=== PATIENT | male | born 1955 | race African-American/Black ===

== ENCOUNTER → 2016-04-01 | Outpatient (CLI) | payer OTHER ==
[2016-04-01 15:32] LABS: ANION GAP 11 (5-19); BLOOD UREA NITROGEN 21 mg/dL (7-20); CALCIUM 10.3 mg/dL (8.4-10.2); CARBON DIOXIDE 26 mmol/L (22-30); CHLORIDE 105 mmol/L (98-107); CREATININE RESULT 1.37 mg/dL (0.52-1.25); GLUCOSE 111 mg/dL (75-110); POTASSIUM 4.5 mmol/L (3.6-5.0); SODIUM 142.1 mmol/L (137-145)
== END ==
LOC: OD 14:30
PROVIDERS: ATTEND Internal Medicine Nephrology
DX: R80.9 Proteinuria, unspecified (principal)
CPT/HCPCS: 36415; 80048

== ENCOUNTER → 2016-05-02 | Outpatient (CLI) | payer OTHER ==
[2016-05-02 11:44] LABS: APPEARANCE,URINE CLEAR; BILIRUBIN,URINE NEGATIVE (NEGATIVE); GLUCOSE, URINE NEGATIVE (NEGATIVE); KETONES,URINE NEGATIVE (NEGATIVE); LEUKOCYTE ESTERASE,URINE NEGATIVE (NEGATIVE); NITRITE,URINE NEGATIVE (NEGATIVE); PROTEIN,URINE 100 mg/dL (NEGATIVE); URINE SPECIFIC GRAVITY 1.009; UROBILINOGEN,URINE NEGATIVE mg/dL (<2.0)
[2016-05-02 12:07] LABS: ANION GAP 9 (5-19); BLOOD UREA NITROGEN 28 mg/dL (7-20); CALCIUM 9.5 mg/dL (8.4-10.2); CARBON DIOXIDE 24 mmol/L (22-30); CHLORIDE 107 mmol/L (98-107); CREATININE RESULT 1.33 mg/dL (0.52-1.25); GLUCOSE 82 mg/dL (75-110); POTASSIUM 4.5 mmol/L (3.6-5.0); SODIUM 139.8 mmol/L (137-145)
== END ==
LOC: OD 11:17
PROVIDERS: ATTEND Internal Medicine Nephrology
DX: N17.9 Acute kidney failure, unspecified (principal); E83.52 Hypercalcemia
CPT/HCPCS: 36415; 80048; 81001

== ENCOUNTER → 2016-06-09 | Outpatient (CLI) | payer OTHER | LOC: RAD 14:48 | PROVIDERS: ATTEND Internal Medicine Medical Oncology | DX: C79.51 Secondary malignant neoplasm of bone (principal) | CPT/HCPCS: 77075 ==

== ENCOUNTER → 2016-08-04 | Outpatient (CLI) | payer OTHER ==
[2016-08-04 12:40] LABS: APPEARANCE,URINE SLIGHTLY-CLOUDY; BILIRUBIN,URINE NEGATIVE (NEGATIVE); GLUCOSE, URINE NEGATIVE (NEGATIVE); KETONES,URINE NEGATIVE (NEGATIVE); LEUKOCYTE ESTERASE,URINE NEGATIVE (NEGATIVE); NITRITE,URINE NEGATIVE (NEGATIVE); PROTEIN,URINE 100 mg/dL (NEGATIVE); URINE SPECIFIC GRAVITY 1.013; UROBILINOGEN,URINE NEGATIVE mg/dL (<2.0)
[2016-08-04 12:57] LABS: ANION GAP 11 (5-19); BLOOD UREA NITROGEN 19 mg/dL (7-20); CALCIUM 9.3 mg/dL (8.4-10.2); CARBON DIOXIDE 19 mmol/L (22-30); CHLORIDE 108 mmol/L (98-107); CREATININE RESULT 1.35 mg/dL (0.52-1.25); GLUCOSE 91 mg/dL (75-110); POTASSIUM 4.5 mmol/L (3.6-5.0); SODIUM 137.5 mmol/L (137-145)
[2016-08-05 11:39] LABS: CREATININE URINE 119.8 mg/dL (Not Estab.)
[2016-08-05 11:43] LABS: MICROALBUMIN URINE 941.4 ug/mL (Not Estab.)
== END ==
LOC: OD 11:22
PROVIDERS: ATTEND Internal Medicine Nephrology
DX: N28.9 Disorder of kidney and ureter, unspecified (principal); R80.9 Proteinuria, unspecified
CPT/HCPCS: 36415; 80048; 81001; 82043; 82570

== ENCOUNTER → 2016-11-27 | Outpatient (CLI) | payer OTHER ==
[2016-11-27 13:55] LABS: APPEARANCE,URINE CLEAR; BILIRUBIN,URINE NEGATIVE (NEGATIVE); GLUCOSE, URINE NEGATIVE (NEGATIVE); KETONES,URINE NEGATIVE (NEGATIVE); LEUKOCYTE ESTERASE,URINE NEGATIVE (NEGATIVE); NITRITE,URINE NEGATIVE (NEGATIVE); PROTEIN,URINE 30 mg/dL (NEGATIVE); URINE SPECIFIC GRAVITY 1.012; UROBILINOGEN,URINE NEGATIVE mg/dL (<2.0)
[2016-11-27 14:23] LABS: URINE CREATININE 108.8 mg/dL (22-328)
[2016-11-27 14:24] LABS: ANION GAP 11 (5-19); BLOOD UREA NITROGEN 20 mg/dL (7-20); CALCIUM 9.8 mg/dL (8.4-10.2); CARBON DIOXIDE 17 mmol/L (22-30); CHLORIDE 112 mmol/L (98-107); CREATININE RESULT 1.55 mg/dL (0.52-1.25); GLUCOSE 85 mg/dL (75-110); POTASSIUM 5.2 mmol/L (3.6-5.0); SODIUM 139.9 mmol/L (137-145)
== END ==
LOC: OD 12:45
PROVIDERS: ATTEND Internal Medicine Nephrology
DX: N18.2 Chronic kidney disease, stage 2 (mild) (principal); R80.9 Proteinuria, unspecified
CPT/HCPCS: 36415; 80048; 81001; 82570; 84156

== ENCOUNTER 2017-02-10 11:11 | Outpatient (CLI) | payer OTHER ==
[~2017-02-10 11:11] MED LIST: ACETAMINOPHEN 325 MG TABLET PO PRN; DIPHENHYDRAMINE HCL 25 MG CAPSULE PO PRN; FUROSEMIDE INJ/PF 20 MG/2 ML SDV IV PRN
[2017-02-10] MEDS ORDERED: NORMAL SALINE 250 ML IV PRN (11:45)
[2017-02-10 11:46] LABS: HEMATOCRIT 24.4 % (37.9-51.0); HEMOGLOBIN 8.4 g/dL (13.5-17.0); HGB HCT DIFFERENCE 0.8; MEAN CORPUSCULAR HEMOGLOBIN 34.2 pg (27.0-33.4); MEAN CORPUSCULAR HGB CONC 34.3 g/dL (32.0-36.0); MEAN CORPUSCULAR VOLUME 100 fl (80-97); RED BLOOD COUNT 2.45 10^6/uL (4.35-5.55); RED CELL DISTRIBUTION WIDTH 23.2 % (11.5-14.0); WHITE BLOOD COUNT 10.7 10^3/uL (4.0-10.5)
[2017-02-10 18:59] VITALS: BP 131/76
[2017-02-10 19:26] LABS: HEMATOCRIT 29.3 % (37.9-51.0); HEMOGLOBIN 10.1 g/dL (13.5-17.0); MEAN CORPUSCULAR HEMOGLOBIN 33.2 pg (27.0-33.4); MEAN CORPUSCULAR HGB CONC 34.4 g/dL (32.0-36.0); MEAN CORPUSCULAR VOLUME 97 fl (80-97); RED BLOOD COUNT 3.04 10^6/uL (4.35-5.55); RED CELL DISTRIBUTION WIDTH 21.3 % (11.5-14.0); WHITE BLOOD COUNT 10.8 10^3/uL (4.0-10.5)
== END 2017-02-10 19:18 | disposition home or self-care (01) ==
LOC: II 11:11 → 2N 11:15 → II 19:18
PROVIDERS: ATTEND Internal Medicine Medical Oncology
PROC: 30243N1 Transfusion of Nonautologous Red Blood Cells into Central Vein, Percutaneous Approach (ICD-10-PCS; principal; 2017-02-10)
DX: D64.9 Anemia, unspecified (principal); N18.3 Chronic kidney disease, stage 3 (moderate); C90.00 Multiple myeloma not having achieved remission
CPT/HCPCS: 86900; 86901; 36415; 36430; 86850; 85027; 86920; P9016; J1940; 96374

== ENCOUNTER → 2017-02-17 | Outpatient (CLI) | payer OTHER ==
--- NOTE | 2017-02-17 11:45 | RADIOLOGY REPORT (SQ) ---
EXAM DESCRIPTION: CHEST PA/LATERAL COMPLETED DATE/TIME: 02/17/2017 11:13 am REASON FOR STUDY: PNEUMONIA, UNSPECIFIED ORGANISM COMPARISON: 01/21/2017 TECHNIQUE: Frontal and lateral radiographic views of the chest acquired. NUMBER OF VIEWS: Two view. LIMITATIONS: None. FINDINGS: LUNGS AND PLEURA: Mild chronic interstitial prominence. Mild areas of subsegmental atelec tasis in the lung bases. No evidence of developing pneumonia or overt failure. Lungs slightly hyper inflated. MEDIASTINUM AND HILAR STRUCTURES: Stable contours. HEART AND VASCULAR STRUCTURES: Stable heart. Relatively normal size. BONES: Chronic mid thoracic vertebral wedging. HARDWARE: Right port, tip to the superior vena cava as before. OTHER: No other significant finding. IMPRESSION: Relatively stable chest, findings as above. Generally chronic changes. TECHNICAL DOCUMENTATION: JOB ID: [id number] [employer]- All Rights Reserved
== END ==
LOC: OD 10:58
PROVIDERS: ATTEND Physician Assistant
DX: J18.9 Pneumonia, unspecified organism (principal)
CPT/HCPCS: 71020

== ENCOUNTER 2017-02-19 20:34 | Inpatient (IN) | payer OTHER ==
--- NOTE | 2017-02-19 20:40 | ER Document Report ---
ED General - General Stated Complaint: DIFFICULTY BREATHING Time Seen by Provider: 02/19/17 20:40 Mode of Arrival: Ambulatory Information source: Patient, Relative Notes: 61-year-old male history of multiple myeloma who last had chemotherapy 1 month ago presents with complaints of shortness of breath difficulty breathing. Patient notes symptoms have been worsening over the past few days, patient was diagnosed with pneumonia approximately 23 days ago Patient is not on oxygen at home TRAVEL OUTSIDE OF THE [place] IN LAST 30 DAYS: No - HPI Onset: Other Onset/Duration: Persistent Quality of pain: No pain Severity: Moderate Pain Level: Denies Associated symptoms: Nonproductive cough, Shortness of breath Exacerbated by: Walking Relieved by: Denies Similar symptoms previously: Yes Recently seen / treated by doctor: Yes - Related Data Allergies/Adverse Reactions: No Known Allergies Allergy (Verified 07/05/14 16:43) Past Medical History - Social History Smoking Status: Former Smoker Cigarette use (# per day): No Chew tobacco use (# tins/day): No Smoking Education Provided: No Family History: Reviewed & Not Pertinent - Past Medical History Cardiac Medical History: Reports: Hx Hypercholesterolemia, Hx Hypertension Pulmonary Medical History: Reports: Hx Bronchitis, Hx Pneumonia Denies: Hx Asthma, Hx COPD Renal/ Medical History: Denies: Hx Peritoneal Dialysis Past Surgical History: Reports: Hx Orthopedic Surgery - L3-L5 surgery - Immunizations Hx Diphtheria, Pertussis, Tetanus Vaccination: No Hx Pneumococcal Vaccination: 03/23/12 Review of Systems - Review of Systems Notes: REVIEW OF SYSTEMS: CONSTITUTIONAL : Denies fever, chills, or sweats. Denies recent illness. EENT: Denies eye, ear, throat, or mouth pain or symptoms. Denies nasal or sinus congestion or discharge. Denies throat, tongue, or mouth swelling or difficulty swallowing. CARDIOVASCULAR: Denies chest pain. Denies palpitations or racing or irregular heart beat. Denies ankle edema. RESPIRATORY: Admits shortness breath difficulty breathing GASTROINTESTINAL: Denies abdominal pain or distention. Denies nausea, vomiting , or diarrhea. Denies blood in vomitus, stools, or per rectum. Denies black, tarry stools. Denies constipation. GENITOURINARY: Denies difficulty urinating, painful urination, burning, frequency, blood in urine, or discharge. MUSCULOSKELETAL: Denies back or neck pain or stiffness. Denies joint pain or swelling. SKIN: Denies rash, lesions or sores. HEMATOLOGIC : Denies easy bruising or bleeding. LYMPHATIC: Denies swollen, enlarged glands. NEUROLOGICAL: Denies confusion or altered mental status. Denies passing out or loss of consciousness. Denies dizziness or lightheadedness. Denies headache. Denies weakness or paralysis or loss of use of either side. Denies problems with gait or speech. Denies sensory loss, numbness, or tingling. Denies seizures. PSYCHIATRIC: Denies anxiety or stress. Denies depression, suicidal ideation, or homicidal ideation. ALL OTHER SYSTEMS REVIEWED AND NEGATIVE. Dictation was performed using [employer] voice recognition software PHYSICAL EXAMINATION: GENERAL: Well-appearing, well-nourished and in mild respiratory distress HEAD: Atraumatic, normocephalic. EYES: Pupils equal round and reactive to light, extraocular movements intact, sclera anicteric, conjunctiva are normal. ENT: Nares patent, oropharynx clear without exudates. Moist mucous membranes. NECK: Normal range of motion, supple without lymphadenopathy LUNGS: Tachypneic coarse breath sounds all throughout i. HEART: Tachycardic ABDOMEN: Soft, nontender, nondistended abdomen. No guarding, no rebound. No masses appreciated. Musculoskeletal: Normal range of motion, no pitting or edema. No cyanosis. NEUROLOGICAL: Cranial nerves grossly intact. Normal speech, normal gait. Normal sensory, motor exams PSYCH: Normal mood, normal affect. SKIN: Warm, Dry, normal turgor, no rashes or lesions noted. Physical Exam - Vital signs Vitals: Resp Pulse Ox 28 H 97 02/19/17 20:44 02/19/17 20:44 Course - Re-evaluation Re-evalutation: 02/19/17 22:32 Initial concern was for a pulmonary emboli given history of multiple myeloma and shortness of breath tachycardia and hypoxemia, CTA is consistent with pneumonia, at this point patient meets sepsis criteria, IV fluids have been ordered antibiotics and admission to the hospitalist service - Vital Signs Vital signs: Temp Pulse Resp BP Pulse Ox 99.5 F 128 H 41 H 109/59 L 97 02/19/17 20:49 02/19/17 20:49 02/19/17 21:31 02/19/17 21:31 02/19/17 21:31 - Laboratory Result Diagrams: 02/19/17 20:54 02/19/17 20:54 Laboratory results interpreted by me: 02/19/17 02/19/17 20:54 20:54 RBC 2.92 L Hgb 9.5 L Hct 27.9 L RDW 21.0 H Plt Count 101 L Seg Neuts % (Manual) 35 L Band Neutrophils % 18 H Monocytes % (Manual) 18 H Potassium 3.5 L Chloride 109 H Carbon Dioxide 17 L BUN 24 H Creatinine 1.84 H Est GFR ( Amer) 45 L Est GFR (Non-Af Amer) 37 L Calcium 10.4 H Direct Bilirubin 0.5 H Total Protein 9.4 H Albumin 3.4 L - Diagnostic Test Radiology reviewed: Image reviewed, Reports reviewed Critical Care Note - Critical Care Note Total time excluding time spent on procedures (mins): 33 Comments: 33 minutes of critical care time spent in direct contact evaluating and reevaluating the patient, treating symptoms, reviewing labs and studies and speaking with family and consultants excluding any procedures Discharge - Discharge Clinical Impression: Renal insufficiency Pneumonia Qualifiers: Pneumonia type: due to unspecified organism Laterality: bilateral Lung location : lower lobe of lung Qualified Code(s): J18.9 - Pneumonia, unspecified organism Sepsis Qualifiers: Sepsis type: sepsis due to unspecified organism Qualified Code(s): A41.9 - Sepsis, unspecified organism Condition: Stable Disposition: ADMITTED INPATIENT Admitting Provider: Hospitalist Unit Admitted: Telemetry Referrals: MERARI PURI MD [Primary Care Provider] - Follow up as needed
[2017-02-19 21:32] LABS: HEMATOCRIT 27.9 % (37.9-51.0); HEMOGLOBIN 9.5 g/dL (13.5-17.0); HGB HCT DIFFERENCE 0.6; MEAN CORPUSCULAR HEMOGLOBIN 32.7 pg (27.0-33.4); MEAN CORPUSCULAR HGB CONC 34.2 g/dL (32.0-36.0); MEAN CORPUSCULAR VOLUME 96 fl (80-97); RED BLOOD COUNT 2.92 10^6/uL (4.35-5.55); WHITE BLOOD COUNT 4.8 10^3/uL (4.0-10.5)
[2017-02-19 21:40] LABS: ALANINE AMINOTRANSFERASE 38 U/L (21-72); ALBUMIN 3.4 g/dL (3.5-5.0); ALKALINE PHOSPHATASE 65 U/L (38-126); ANION GAP 16 (5-19); ASPARTATE AMINO TRANSFERASE 43 U/L (17-59); BILIRUBIN,DIRECT 0.5 mg/dL (0.0-0.4); BILIRUBIN,TOTAL 0.8 mg/dL (0.2-1.3); BLOOD UREA NITROGEN 24 mg/dL (7-20); CALCIUM 10.4 mg/dL (8.4-10.2); CARBON DIOXIDE 17 mmol/L (22-30); CHLORIDE 109 mmol/L (98-107); CREATININE RESULT 1.84 mg/dL (0.52-1.25); GLUCOSE 103 mg/dL (75-110); POTASSIUM 3.5 mmol/L (3.6-5.0); SODIUM 141.6 mmol/L (137-145); TOTAL PROTEIN 9.4 g/dL (6.3-8.2)
[2017-02-19 21:58] LABS: BASOPHILS % (MANUAL) 0 % (0-2); EOSINOPHILS % (MANUAL) 0 % (0-6); LYMPHOCYTES % (MANUAL) 29 % (13-45); NUCLEATED RED BLOOD CELLS 9 /100 WBC (0); TOTAL CELLS COUNTED 100
[2017-02-19 22:02] LABS: ANISOCYTOSIS 3+; POIKILOCYTOSIS 1+; POLYCHROMASIA 1+; SCHISTOCYTES SLIGHT; TEAR DROP CELLS SLIGHT
[2017-02-19 22:03] LABS: BAND NEUTROPHILS % (MANUAL) 18 % (3-5)
--- NOTE | 2017-02-19 22:16 | RADIOLOGY REPORT (SQ) ---
EXAM DESCRIPTION: CTA CHEST COMPLETED DATE/TIME: 02/19/2017 10:01 pm REASON FOR STUDY: sob, pneumonia COMPARISON: 12/02/2013 TECHNIQUE: CT scan of the chest performed using helical scanning technique with dynamic intravenous contrast injection. Images reviewed with lung, soft tissue and bone windows. Reconstructed coronal and sagittal MPR images reviewed. Additional 3 dimensional post-processing performed to develop Maximal Intensity Projection images (FL P). All images stored on PACS. All CT scanners at this facility use dose modulation, iterative reconstruction, and/or weight based d osing when appropriate to reduce radiation dose to as low as reasonably achievable (ALARA). [facility]: Dose Right [facility]: CareDose [facility]: Dose Right [facility]: Teradose 4D [facility]: Smart BoostUp CONTRAST TYPE AND DOSE: 75 mL Isovue 300- low osmolar. Contrast bolus optimized for the pulmonary arteries. Not diagnostic for the aorta. RENAL FUNCTION: Creatinine 1.84 RADIATION DOSE: . LIMITATIONS: Moderate breathing motion. FINDINGS: LUNGS AND PLEURA: Dense consolidation in the posterior segments of the right lower lobe. Additional patchy areas of consolidation are present in the parahilar regions of both upper lobes and in the left lower lobe. No pleural effusion. AORTA AND GREAT VESSELS: No aneurysm. Contrast bolus not optimized for the aorta. HEART: No pericardial effusion. No significant coronary artery calcifications. PULMONARY ARTERIES: No emboli visualized in the main pulmonary arteries. Breathing motion artifact l imits evaluation of the segmental branches. HILAR AND MEDIASTINAL STRUCTURES: No identified masses or abnormal nodes. HARDWARE: None in the chest. UPPER ABDOMEN: No significant findings. Limited exam. THYROID AND OTHER SOFT TISSUES: No masses. No adenopathy. BONES: No acute finding. High-grade chronic appearing compression of the T9 vertebral body. 3D MIPS: Confirm above findings. OTHER: No other significant finding. IMPRESSION: Dense consolidation in the posterior segments of the right lower lobe. Additional patch y areas of consolidation are present in the parahilar regions of both upper lobes and in the left low er lobe. No emboli visualized in the main pulmonary arteries. Breathing motion artifact limits evaluation of the segmental branches. COMMENT: Quality ID # [id number]: Final reports with documentation of one or more dose reduction techniques (e.g., Automated exposure control, adjustment of the mA and/or kV according to patient size, use of iterative reconstruction technique) TECHNICAL DOCUMENTATION: JOB ID: [id number] [place]-72 2010 [facility] [employer]- All Rights Reserved
[2017-02-19] MEDS ORDERED: CEFTRIAXONE 1 GM/D5W RTU 1 GM/50 ML RTUPB IV ONE (22:22)
[2017-02-19 22:33] LABS: VENOUS BLOOD BASE EXCESS -5.3 mmol/L; VENOUS BLOOD HCO3 16.9 mmol/L (20-32); VENOUS BLOOD PCO2 27.5 mmHg (35-63); VENOUS BLOOD PH 7.41 (7.30-7.42)
[2017-02-19] MEDS: NORMAL SALINE 1000 ML 1,000 ML IV PRN (22:47)
--- NOTE | 2017-02-19 23:18 | EKG REPORT ---
SEVERITY:- ABNORMAL ECG - SINUS TACHYCARDIA PROBABLE LEFT ATRIAL ABNORMALITY NONSPECIFIC T ABNORMALITIES, LATERAL LEADS : Confirmed by: Abhijeet Sanon MD 19-Feb-2017 23:17:13
[2017-02-19] MEDS ORDERED: LEVALBUTEROL HCL NEB 1.25 MG/3 ML AMPUL NEB PRN (23:42)
[2017-02-19] MEDS ORDERED: NORMAL SALINE 1000 ML 1,000 ML IV PRN (23:42)
[2017-02-19] MEDS ORDERED: VANCOMYCIN HCL 0 MG in DEXTROSE 5%-WATER 250 ML IV NR (23:45)
[2017-02-19] MEDS ORDERED: METHYLPREDNISOLONE INJ 40 MG/1 ML SDV IV SCH (23:45)
[2017-02-19] MEDS ORDERED: CEFEPIME 2 GM/D5W RTU 50 ML IV SCH (23:45)
[2017-02-19] MEDS ORDERED: LORAZEPAM INJ 2 MG/1 ML VIAL IV ONE (23:50)
[2017-02-19] MEDS ORDERED: OXYCODONE HCL IR 5 MG TABLET PO PRN (23:51)
[2017-02-20] MEDS ORDERED: POTASSIUM CHLORIDE 10 MEQ TABLET.SA PO ONE (00:01)
[2017-02-20] MEDS: NORMAL SALINE 1000 ML 1,000 ML IV PRN ×3 (00:15→02:03)
[2017-02-20] MEDS ORDERED: CEFEPIME INJ 2 GM VIAL IV PRN (00:25)
[2017-02-20] MEDS ORDERED: CEFEPIME 2 GM/D5W RTU 2 GM/50 ML RTUPB IV ONE (00:30)
[2017-02-20] MEDS ORDERED: VANCOMYCIN HCL INJ 1000 MG VIAL IV PRN (00:43)
[2017-02-20] MEDS ORDERED: METHYLPREDNISOLONE INJ 125 MG/2 ML SDV IV ONE (00:45)
[2017-02-20] MEDS ORDERED: LEVOFLOXACIN 750 MG/D5W RTU 750 MG/150 ML RTUPB IV ONE (01:00)
[2017-02-20] MEDS: IPRATROPIUM/ALBUTEROL 0.5-2.5 MG/3 ML AMPUL NEB SCH ×4 (01:30→20:05)
[2017-02-20] MEDS: MAGNESIUM SULFATE/D5W 1 GM/100 ML RTUPB IV SCH ×3 (02:04→04:41)
[2017-02-20] MEDS ORDERED: VANCOMYCIN HCL 1,500 MG in DEXTROSE 5%-WATER 250 ML IV ONE (03:00)
--- NOTE | 2017-02-20 03:43 | PDOC H&P ---
History of Present Illness Admission Date/PCP: 02/19/17 23:10 MERARI PURI MD History of Present Illness: ANGIE LANGFORD is a 61 year old male with past medical history of multiple myeloma, hypertension, DVT, who presents to the emergency department with shortness of breath. Patient apparently came into the emergency department on 01/27/2017 with complaints of shortness of breath and was diagnosed with pneumonia. He was given antibiotics through his IV in the infusion clinic at the cancer center as well as 10 days of amoxicillin. He reported that he was actually better and improved after this. He reports that over the last 48 hours he has gotten sick suddenly starting with the sniffles on Thursday. Last Thursday patient received 2 units packed red blood cells in the infusion clinic. Today patient presents and is quite hypoxic, tachypnea, and obviously in sepsis with multifocal pneumonia. He is referred to the hospitalist service for this. Past Medical History Cardiac Medical History: Reports: Hyperlipidema, Hypertension Pulmonary Medical History: Reports: Bronchitis, Pneumonia Denies: Asthma, Chronic Obstructive Pulmonary Disease (COPD) Malignancy Medical History: Reports: Lymphoma Hematology: Reports: Anemia Past Surgical History Past Surgical History: Reports: Orthopedic Surgery - L3-L5 surgery, Vascular Surgery - Port placement, Other - Ex lap for SBO Social History Smoking Status: Former Smoker Frequency of Alcohol Use: Occasional Amount of Alcoholic Beverages Per Day: Used to drink heavily, but now drinks occasionally last drink 2 days ago Hx Recreational Drug Use: No Drugs: None Hx Prescription Drug Abuse: No - Advance Directive Resuscitation Status: Do Not Resuscitate Surrogate healthcare decision maker:: , Jayla Langford Family History Family History: Malignancy Parental Family History Reviewed: Yes Children Family History Reviewed: Yes Sibling(s) Family History Reviewed.: Yes Medication/Allergy Home Medications: Pregabalin [Lyrica 50 mg Capsule] 100 mg PO TID 08/19/11 Albuterol Sulfate [Albuterol Sulfate Hfa] 1 - 2 puff IH Q4 PRN 12/03/13 Amlodipine Besylate/Benazepril [Lotrel 5-20 mg Capsule] 1 tab PO DAILY 12/03/13 Cetirizine HCl [Zyrtec 10 mg Tablet] 10 tab PO DAILY 12/03/13 Esomeprazole Magnesium [Nexium] 40 mg PO DAILY 12/03/13 Fluticasone Propionate [Flonase] 2 sprays NASL DAILY 12/03/13 Lenalidomide [Revlimid] 15 mg PO DAILY 12/06/13 Levofloxacin [Levaquin 750 mg Tablet] 750 mg PO DAILY #5 tablet 12/07/13 Cephalexin Monohydrate [Keflex 500 mg Capsule] 500 mg PO QID #20 capsule Doxycycline Hyclate 100 mg PO BID #14 capsule 01/27/17 Allergies/Adverse Reactions: No Known Allergies Allergy (Verified 07/05/14 16:43) Review of Systems Constitutional: PRESENT: chills, fatigue, fever(s). ABSENT: headache(s), weight gain, weight loss Eyes: ABSENT: visual disturbances Ears: ABSENT: hearing changes Cardiovascular: ABSENT: chest pain, dyspnea on exertion, edema, orthropnea, palpitations Respiratory: PRESENT: cough, dyspnea, sputum. ABSENT: hemoptysis Gastrointestinal: PRESENT: nausea. ABSENT: abdominal pain, constipation, diarrhea, hematemesis, hematochezia, melena, vomiting Genitourinary: ABSENT: dysuria, hematuria Musculoskeletal: ABSENT: joint swelling Integumentary: ABSENT: rash, wounds Neurological: ABSENT: abnormal gait, abnormal speech, confusion, dizziness, focal weakness, syncope Psychiatric: ABSENT: anxiety, depression, homidical ideation, suicidal ideation Endocrine: ABSENT: cold intolerance, heat intolerance, polydipsia, polyuria Hematologic/Lymphatic: ABSENT: easy bleeding, easy bruising Physical Exam Vital Signs: Temp Pulse Resp BP Pulse Ox 99 F 115 H 24 H 108/57 L 95 02/20/17 02:50 02/20/17 02:50 02/20/17 02:50 02/20/17 02:50 02/20/17 02:50 Intake & Output 02/18/17 02/19/17 02/20/17 06:59 06:59 06:59 Weight 84.9 kg General appearance: PRESENT: severe distress, well-developed, well-nourished Head exam: PRESENT: atraumatic, normocephalic Eye exam: PRESENT: conjunctiva pink, EOMI, PERRLA. ABSENT: conjunctival injection, scleral icterus Ear exam: PRESENT: normal external ear exam Mouth exam: PRESENT: dry mucosa, tongue midline Throat exam: PRESENT: post pharyngeal erythema Neck exam: PRESENT: lymphadenopathy. ABSENT: JVD, thyromegaly, tracheal deviation Respiratory exam: PRESENT: accessory muscle use, prolonged expiratory phas, rhonchi, symmetrical, tachypnea, wheezes. ABSENT: rales, retraction, unlabored Cardiovascular exam: PRESENT: RRR, +S1, +S2, systolic murmur, tachycardia. ABSENT: diastolic murmur, rubs Pulses: PRESENT: normal dorsalis pedis pul Vascular exam: PRESENT: normal capillary refill GI/Abdominal exam: PRESENT: normal bowel sounds, soft. ABSENT: distended, firm , guarding, mass, Thurman's sign, organolmegaly, rebound, rigid, tenderness Rectal exam: PRESENT: deferred Extremities exam: PRESENT: clubbing, full ROM, +1 edema. ABSENT: calf tenderness Neurological exam: PRESENT: alert, awake, oriented to person, oriented to place , oriented to time, oriented to situation, CN II-XII grossly intact. ABSENT: motor sensory deficit Psychiatric exam: PRESENT: appropriate affect, normal mood. ABSENT: homicidal ideation, suicidal ideation Skin exam: PRESENT: dry, intact, warm. ABSENT: cyanosis, rash Results Laboratory Results: 02/20/17 00:42 Lactic Acid 3.4 H 02/19/17 02/19/17 02/19/17 20:54 20:54 20:54 WBC 4.8 Hgb 9.5 L Hct 27.9 L Plt Count 101 L Band Neutrophils % 18 H VBG pH 7.41 Sodium 141.6 Potassium 3.5 L Chloride 109 H Carbon Dioxide 17 L Anion Gap 16 BUN 24 H Creatinine 1.84 H Est GFR ( Amer) 45 L Est GFR (Non-Af Amer) 37 L Lactic Acid Calcium 10.4 H Magnesium Total Bilirubin 0.8 Direct Bilirubin 0.5 H AST 43 ALT 38 Alkaline Phosphatase 65 Total Protein 9.4 H Albumin 3.4 L 02/19/17 02/19/17 02/20/17 20:54 20:54 00:42 WBC Hgb Hct Plt Count Band Neutrophils % VBG pH Sodium Potassium Chloride Carbon Dioxide Anion Gap BUN Creatinine Est GFR ( Amer) Est GFR (Non-Af Amer) Lactic Acid 4.1 H 3.4 H Calcium Magnesium 0.9 L* Total Bilirubin Direct Bilirubin AST ALT Alkaline Phosphatase Total Protein Albumin 02/20/17 00:34 Influenza A (Rapid) NEGATIVE Influenza B (Rapid) NEGATIVE Impressions: Chest/Abdomen CTA 02/19/17 20:41 IMPRESSION: Dense consolidation in the posterior segments of the right lower lobe. Additional patchy areas of consolidation are present in the parahilar regions of both upper lobes and in the left lower lobe. No emboli visualized in the main pulmonary arteries. Breathing motion artifact limits evaluation of the segmental branches. Status: Imported from PACS Assessment & Plan - Diagnosis (1) Sepsis Qualifiers: Sepsis type: sepsis due to unspecified organism Qualified Code(s): A41.9 - Sepsis, unspecified organism Is this a current diagnosis for this admission?: Yes Plan: Present on admission secondary to pneumonia. Concern for atypical organisms as patient is immune compromised and also due to his hospital exposure. 02/19/17 02/19/17 20:54 20:54 Band Neutrophils % 18 H Lactic Acid 4.1 H Selected Entries 02/19/17 20:49 Temperature 99.5 F Pulse Rate [ 128 H Right Finger] Respiratory 31 H Rate O2 Sat by Pulse 96 Oximetry Oxygen Flow 2 Rate Maintain map greater than 65 patient will have received 4 L normal saline in the emergency department. (2) Pneumonia Qualifiers: Pneumonia type: due to unspecified organism Laterality: bilateral Lung location: lower lobe of lung Qualified Code(s): J18.9 - Pneumonia, unspecified organism Is this a current diagnosis for this admission?: Yes Plan: Concern for atypical organisms in light of his immune compromised status. Place patient on cefepime, vancomycin, and Levaquin. Scheduled nebulized treatments with monitoring for response, Solu-Medrol, and guaifenesin. Encourage incentive spirometry. Culture sputum. (3) Acute renal failure Is this a current diagnosis for this admission?: Yes Plan: Patient is slightly above baseline at this time. His new baseline appears to be around 1.2. Likely secondary to insensible loss 11/27/15 04/01/16 05/02/16 15:58 14:40 11:25 Creatinine 0.84 1.37 H 1.33 H 08/04/16 11/27/16 01/21/17 11:35 12:58 14:09 Creatinine 1.35 H 1.55 H 3.88 H 01/21/17 01/27/17 02/19/17 17:57 00:30 20:54 Creatinine 3.72 H 1.22 1.84 H (4) Acute hypoxemic respiratory failure Is this a current diagnosis for this admission?: Yes Plan: Oxygen as needed and BiPAP if needed (5) Hypertension Qualifiers: Hypertension type: unspecified Qualified Code(s): I10 - Essential (primary ) hypertension Is this a current diagnosis for this admission?: Yes Plan: Hold antihypertensives at this time due to relative hypotension (6) DVT (deep venous thrombosis) Qualifiers: DVT location: lower extremity Chronicity: chronic Laterality: unspecified laterality Is this a current diagnosis for this admission?: Yes Plan: Continue patient's home Xarelto (7) Anemia Qualifiers: Anemia type: unspecified type Qualified Code(s): D64.9 - Anemia, unspecified Is this a current diagnosis for this admission?: Yes (8) Thrombocytopenia Is this a current diagnosis for this admission?: Yes Plan: Likely secondary to acute illness, will follow and hold Xarelto if needed (9) Hypomagnesemia Is this a current diagnosis for this admission?: Yes Plan: Replete and recheck. Monitor on telemetry for arrhythmia (10) Hypokalemia Is this a current diagnosis for this admission?: Yes Plan: Replete and recheck. Monitor on telemetry for arrhythmia (11) Immunocompromised state Is this a current diagnosis for this admission?: Yes Plan: Continue acyclovir. Patient reports that he was told to stop Bactrim (12) Multiple myeloma Qualifiers: Multiple myeloma remission status: not in remission Qualified Code(s): C90.00 - Multiple myeloma not having achieved remission Is this a current diagnosis for this admission?: Yes Plan: Family reports that patient's last chemo was January 19 at which time he was taking pills. They report no further plans for additional chemo until patient' s abdomen is healed. Will consult his oncologist at their behest. 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
[2017-02-20] MEDS ORDERED: PHARMACY COMMUNICATION ORDER MC NR (03:45)
[2017-02-20] MEDS: LANSOPRAZOLE 15 MG TAB.RAP.DR PO SCH ×2 (05:13→17:30)
[2017-02-20] MEDS: METHYLPREDNISOLONE INJ 125 MG/2 ML SDV IV SCH ×3 (05:13→22:08)
[2017-02-20] MEDS: ACYCLOVIR 200 MG CAPSULE PO SCH ×3 (05:18→17:30)
[2017-02-20] MEDS ORDERED: VANCOMYCIN HCL INJ 500 MG VIAL ONE (06:02)
[2017-02-20] MEDS ORDERED: VANCOMYCIN HCL INJ 1000 MG VIAL ONE (06:02)
[2017-02-20 06:35] LABS: HEMATOCRIT 26.9 % (37.9-51.0); HEMOGLOBIN 9.1 g/dL (13.5-17.0); HGB HCT DIFFERENCE 0.4; MEAN CORPUSCULAR HEMOGLOBIN 32.4 pg (27.0-33.4); MEAN CORPUSCULAR HGB CONC 33.7 g/dL (32.0-36.0); MEAN CORPUSCULAR VOLUME 96 fl (80-97); RED BLOOD COUNT 2.79 10^6/uL (4.35-5.55); RED CELL DISTRIBUTION WIDTH 21.4 % (11.5-14.0); WHITE BLOOD COUNT 5.8 10^3/uL (4.0-10.5)
[2017-02-20 06:55] LABS: ALANINE AMINOTRANSFERASE 28 U/L (21-72); ALBUMIN 2.8 g/dL (3.5-5.0); ALKALINE PHOSPHATASE 55 U/L (38-126); ANION GAP 18 (5-19); ASPARTATE AMINO TRANSFERASE 37 U/L (17-59); BILIRUBIN,DIRECT 0.5 mg/dL (0.0-0.4); BILIRUBIN,TOTAL 0.8 mg/dL (0.2-1.3); BLOOD UREA NITROGEN 24 mg/dL (7-20); CALCIUM 8.6 mg/dL (8.4-10.2); CHLORIDE 117 mmol/L (98-107); GLUCOSE 120 mg/dL (75-110); SODIUM 144.6 mmol/L (137-145); TOTAL PROTEIN 7.7 g/dL (6.3-8.2)
[2017-02-20 07:08] LABS: POTASSIUM 4.9 mmol/L (3.6-5.0)
[2017-02-20 07:10] LABS: CARBON DIOXIDE 10 mmol/L (22-30)
[2017-02-20 07:54] LABS: BAND NEUTROPHILS % (MANUAL) 21 % (3-5); BASOPHILS % (MANUAL) 0 % (0-2); EOSINOPHILS % (MANUAL) 0 % (0-6); LYMPHOCYTES % (MANUAL) 25 % (13-45); NUCLEATED RED BLOOD CELLS 9 /100 WBC (0); TOTAL CELLS COUNTED 100
[2017-02-20 07:58] LABS: ANISOCYTOSIS 2+; POIKILOCYTOSIS 1+; POLYCHROMASIA SLIGHT; TEAR DROP CELLS SLIGHT; TOXIC GRANULATION SLIGHT
[2017-02-20 07:59] LABS: ROULEAUX SLIGHT; SCHISTOCYTES 1+
[2017-02-20] MEDS ORDERED: CEFEPIME 2 GM/D5W RTU 2 GM/50 ML RTUPB IV SCH (10:00)
[2017-02-20] MEDS ORDERED: TIOTROPIUM BROMIDE DPI 5 CAP/KIT (18 MCG/CAP) IH SCH (10:00)
[2017-02-20] MEDS: DULOXETINE HCL 30 MG CAPSULE.DR PO SCH ×2 (10:52→22:07)
[2017-02-20] MEDS: THIAMINE HCL 100 MG TABLET PO SCH (10:53)
[2017-02-20] MEDS: MULTIVITAMINS W-IRON TABLET, CHEWABLE PO SCH (10:53)
[2017-02-20] MEDS: FOLIC ACID 1 MG TABLET PO SCH (10:53)
[2017-02-20] MEDS: CEFEPIME 2 GM/D5W RTU 2 GM/50 ML RTUPB IV SCH ×2 (10:53→22:08)
[2017-02-20] MEDS: GUAIFENESIN 600 MG TABLET.SA PO SCH ×2 (10:53→22:06)
--- NOTE | 2017-02-20 11:07 | Progress Note ---
Provider Note Provider Note: Patient was seen earlier this morning by Dr. Pisano. Patient has a history of multiple myeloma and is currently being care for by Dr. Shah his oncologist. Patient was called this morning in order to inform her that her patient was here and to discuss the case. She is agrees with the current management and is available this weekend over the phone.
[2017-02-20] MEDS: VANCOMYCIN HCL 750 MG in DEXTROSE 5%-WATER 250 ML IV SCH (17:29)
[2017-02-20] MEDS: LEVOFLOXACIN 750 MG/D5W RTU 750 MG/150 ML RTUPB IV SCH (22:09)
[2017-02-20] MEDS: RIVAROXABAN 10 MG TABLET PO SCH (22:10)
[2017-02-21] MEDS: ACYCLOVIR 200 MG CAPSULE PO SCH ×5 (00:12→23:25)
[2017-02-21] MEDS: IPRATROPIUM/ALBUTEROL 0.5-2.5 MG/3 ML AMPUL NEB SCH ×4 (02:20→19:54)
[2017-02-21] MEDS: VANCOMYCIN HCL 750 MG in DEXTROSE 5%-WATER 250 ML IV SCH ×2 (06:14→18:13)
[2017-02-21] MEDS: LANSOPRAZOLE 15 MG TAB.RAP.DR PO SCH ×2 (06:43→18:13)
[2017-02-21] MEDS: METHYLPREDNISOLONE INJ 125 MG/2 ML SDV IV SCH ×3 (06:43→22:36)
[2017-02-21] MEDS: MULTIVITAMINS W-IRON TABLET, CHEWABLE PO SCH (09:37)
[2017-02-21] MEDS: GUAIFENESIN 600 MG TABLET.SA PO SCH ×2 (09:38→22:36)
[2017-02-21] MEDS: DULOXETINE HCL 30 MG CAPSULE.DR PO SCH ×2 (09:38→22:36)
[2017-02-21] MEDS: FOLIC ACID 1 MG TABLET PO SCH (09:38)
[2017-02-21] MEDS: THIAMINE HCL 100 MG TABLET PO SCH (09:38)
[2017-02-21] MEDS: CEFEPIME 2 GM/D5W RTU 2 GM/50 ML RTUPB IV SCH ×2 (09:39→22:35)
[2017-02-21 10:30] LABS: ANION GAP 15 (5-19); BLOOD UREA NITROGEN 29 mg/dL (7-20); CALCIUM 9.3 mg/dL (8.4-10.2); CARBON DIOXIDE 13 mmol/L (22-30); CHLORIDE 118 mmol/L (98-107); CREATININE RESULT 1.36 mg/dL (0.52-1.25); GLUCOSE 179 mg/dL (75-110); POTASSIUM 3.7 mmol/L (3.6-5.0); SODIUM 145.9 mmol/L (137-145)
[2017-02-21 18:27] LABS: CREATININE RESULT 1.45 mg/dL (0.52-1.25)
[2017-02-21] MEDS: LEVOFLOXACIN 750 MG/D5W RTU 750 MG/150 ML RTUPB IV SCH (22:35)
[2017-02-21] MEDS: RIVAROXABAN 10 MG TABLET PO SCH (22:36)
[2017-02-22] MEDS: IPRATROPIUM/ALBUTEROL 0.5-2.5 MG/3 ML AMPUL NEB SCH (02:01)
[2017-02-22] MEDS ORDERED: OXYMETAZOLINE HCL 0.05% NASAL SPRAY 15 ML BOTTLE NASL PRN (05:02)
--- NOTE | 2017-02-22 05:31 | PDOC PROGRESS REPORT ---
Subjective Progress Note for:: 02/21/17 Subjective:: Patient presented with respiratory distress and was found to have pneumonia. Patient states he is doing much better today. Patient did have a nose bleed for the oxygen. Oxygen is now humidified. Reason For Visit: PNEUMONIA SEPSIS MM Physical Exam Vital Signs: Temp Pulse Resp BP Pulse Ox 98.2 F 102 H 25 H 151/81 H 97 02/22/17 03:29 02/22/17 03:29 02/22/17 03:29 02/22/17 03:29 02/22/17 04:06 Pulse Oximeter Continuous Start: 02/19/17 23: 43 Freq: RTQ4 Status: Active Document 02/22/17 04:06 CMI (Rec: 02/22/17 04:14 CMI [email or web address]) Pulse Oximetry Assessment Oxygen Saturation (92-100) 97 Oxygen Flow Rate (L/min) 2 Oxygen Delivery Method Nasal Cannula Fraction of Inspired Oxygen (FIO2) 28 Equipment Usage Equipment in Use Continuous SpO2 Machine # 13 Intake & Output 02/20/17 02/21/17 02/22/17 06:59 06:59 06:59 Intake Total 4130 1622 1324 Output Total 300 2901 1999 Balance 0090 -8476 -816 Weight 84.9 kg 85.6 kg General appearance: PRESENT: no acute distress, well-developed, well-nourished Head exam: PRESENT: normocephalic Eye exam: PRESENT: EOMI. ABSENT: scleral icterus Ear exam: PRESENT: normal external ear exam Mouth exam: PRESENT: moist Neck exam: ABSENT: carotid bruit, JVD, lymphadenopathy, thyromegaly Respiratory exam: PRESENT: clear to auscultation leni. ABSENT: rales, rhonchi, wheezes Cardiovascular exam: PRESENT: RRR, tachycardia. ABSENT: diastolic murmur, rubs , systolic murmur GI/Abdominal exam: PRESENT: normal bowel sounds, soft. ABSENT: distended, guarding, mass, organolmegaly, rebound, tenderness Rectal exam: PRESENT: deferred Extremities exam: PRESENT: full ROM. ABSENT: calf tenderness, clubbing, pedal edema Neurological exam: PRESENT: alert, awake, oriented to person, oriented to place , oriented to time, oriented to situation, CN II-XII grossly intact. ABSENT: motor sensory deficit Psychiatric exam: PRESENT: appropriate affect, normal mood. ABSENT: homicidal ideation, suicidal ideation Skin exam: PRESENT: dry, intact, warm. ABSENT: cyanosis, rash Results Laboratory Results: 02/20/17 05:27 02/21/17 17:20 02/21/17 02/21/17 09:40 17:20 Sodium 145.9 H Potassium 3.7 Chloride 118 H Carbon Dioxide 13 L Anion Gap 15 BUN 29 H Creatinine 1.36 H 1.45 H Est GFR ( Amer) > 60 > 60 Est GFR (Non-Af Amer) 53 L 49 L Glucose 179 H Calcium 9.3 Impressions: Chest/Abdomen CTA 02/19/17 20:41 IMPRESSION: Dense consolidation in the posterior segments of the right lower lobe. Additional patchy areas of consolidation are present in the parahilar regions of both upper lobes and in the left lower lobe. No emboli visualized in the main pulmonary arteries. Breathing motion artifact limits evaluation of the segmental branches. Assessment & Plan - Diagnosis (1) Pneumonia Qualifiers: Pneumonia type: due to unspecified organism Laterality: bilateral Lung location: upper lobe of lung Qualified Code(s): J18.9 - Pneumonia, unspecified organism Is this a current diagnosis for this admission?: Yes Plan: Patient currently on vancomycin, levaquin and cefepime. Cultures are still negative. May be able to de esculate as patient continues to improve. (2) Acute hypoxemic respiratory failure Is this a current diagnosis for this admission?: Yes Plan: Patient mildly hypoxic at 90%. Improved with supplemental oxygen. (3) Acute renal failure Is this a current diagnosis for this admission?: Yes Plan: Patient with acute on chronic renal disease stage. This is possible secondary to MM and intravascular depletion as it improved with IV fluids. Patient creatinine was 1.60 on admission and is now 1.45. Will decrease IV fluids and continue to monitor. (4) Anemia Qualifiers: Anemia type: unspecified type Qualified Code(s): D64.9 - Anemia, unspecified Is this a current diagnosis for this admission?: Yes Plan: Anemia of chronic disease. Will continue to monitor. (5) DVT (deep venous thrombosis) Qualifiers: DVT location: lower extremity Chronicity: chronic Laterality: unspecified laterality Is this a current diagnosis for this admission?: Yes Plan: Continue xarelto. (6) Hypomagnesemia Is this a current diagnosis for this admission?: Yes Plan: Was 0.9 on admission was given IV and po supplement. Will follow up. (7) Thrombocytopenia Is this a current diagnosis for this admission?: Yes Plan: Due to MM and possible worsened by acute illness. (8) Immunocompromised state Is this a current diagnosis for this admission?: Yes Plan: Continue acyclovir. (9) Epistaxis Is this a current diagnosis for this admission?: Yes Plan: Due to nasal mucuosa being irritated by nasal canula. Patient oxygen humidified. PRN afrin ordered. Patient also with thrombocytopenia due to MM therefore he is at risk for bleeding. - Time Time Spent with patient: Less than 15 minutes Anticipated discharge: Home with Homehealth - Inpatient Certification Medical Necessity: Significant Comorbidiites Make Outpatient Treatment Too Risky , Need Close Monitoring Due to Risk of Patient Decompensation, Need for IV Antibiotics
[2017-02-22] MEDS: NORMAL SALINE 1000 ML 1,000 ML IV PRN (05:45)
[2017-02-22] MEDS: LANSOPRAZOLE 15 MG TAB.RAP.DR PO SCH ×2 (05:54→17:20)
[2017-02-22] MEDS: ACYCLOVIR 200 MG CAPSULE PO SCH ×4 (05:54→23:45)
[2017-02-22] MEDS: VANCOMYCIN HCL 750 MG in DEXTROSE 5%-WATER 250 ML IV SCH (05:55)
[2017-02-22] MEDS: METHYLPREDNISOLONE INJ 125 MG/2 ML SDV IV SCH ×3 (05:56→22:26)
[2017-02-22 07:20] LABS: HEMATOCRIT 22.4 % (37.9-51.0); HGB HCT DIFFERENCE 0.7; MEAN CORPUSCULAR HEMOGLOBIN 32.3 pg (27.0-33.4); MEAN CORPUSCULAR HGB CONC 34.4 g/dL (32.0-36.0); MEAN CORPUSCULAR VOLUME 94 fl (80-97); RED BLOOD COUNT 2.38 10^6/uL (4.35-5.55); RED CELL DISTRIBUTION WIDTH 21.3 % (11.5-14.0); WHITE BLOOD COUNT 8.6 10^3/uL (4.0-10.5)
[2017-02-22 07:42] LABS: BAND NEUTROPHILS % (MANUAL) 6 % (3-5); BASOPHILS % (MANUAL) 0 % (0-2); EOSINOPHILS % (MANUAL) 0 % (0-6); LYMPHOCYTES % (MANUAL) 6 % (13-45); NUCLEATED RED BLOOD CELLS 1 /100 WBC (0); TOTAL CELLS COUNTED 100
[2017-02-22 07:45] LABS: ANISOCYTOSIS 2+; POIKILOCYTOSIS SLIGHT; POLYCHROMASIA SLIGHT; TEAR DROP CELLS SLIGHT
[2017-02-22 07:50] LABS: HEMOGLOBIN 7.7 g/dL (13.5-17.0)
[2017-02-22 08:08] LABS: ANION GAP 12 (5-19); BLOOD UREA NITROGEN 37 mg/dL (7-20); CALCIUM 9.2 mg/dL (8.4-10.2); CARBON DIOXIDE 13 mmol/L (22-30); CHLORIDE 120 mmol/L (98-107); CREATININE RESULT 1.36 mg/dL (0.52-1.25); GLUCOSE 158 mg/dL (75-110); POTASSIUM 3.8 mmol/L (3.6-5.0); SODIUM 144.8 mmol/L (137-145)
[2017-02-22] MEDS: LEVALBUTEROL HCL NEB 1.25 MG/3 ML AMPUL NEB SCH ×3 (08:28→20:06)
[2017-02-22] MEDS ORDERED: (PENDING PHARMACY ID) (Pantoprazole Sodium [Protonix] 20 MG) PO SCH (10:00)
[2017-02-22] MEDS: CEFEPIME 2 GM/D5W RTU 2 GM/50 ML RTUPB IV SCH (10:09)
[2017-02-22] MEDS: OXYCODONE HCL IR 5 MG TABLET PO SCH ×2 (11:21→22:25)
[2017-02-22] MEDS: MAGNESIUM OXIDE 400 MG TABLET PO SCH (11:22)
[2017-02-22] MEDS: MULTIVITAMINS W-IRON TABLET, CHEWABLE PO SCH (11:22)
[2017-02-22] MEDS: GUAIFENESIN 600 MG TABLET.SA PO SCH ×2 (11:23→22:25)
[2017-02-22] MEDS: THIAMINE HCL 100 MG TABLET PO SCH (11:23)
[2017-02-22] MEDS: METOPROLOL SUCCINATE 25 MG TAB.SR.24H PO SCH (11:23)
[2017-02-22] MEDS: DULOXETINE HCL 30 MG CAPSULE.DR PO SCH ×2 (11:24→17:21)
[2017-02-22] MEDS: FOLIC ACID 1 MG TABLET PO SCH (11:24)
[2017-02-22] MEDS ORDERED: NORMAL SALINE 250 ML IV PRN ×2 (13:25)
[2017-02-22] MEDS ORDERED: OXYMETAZOLINE HCL 0.05% NASAL SPRAY 15 ML BOTTLE NASL ONE (13:39)
--- NOTE | 2017-02-22 13:56 | PDOC PROGRESS REPORT ---
Subjective Progress Note for:: 02/22/17 Subjective:: Pt states that he continues to have nose bleeds. Pt states that he had a dark black stool today. Nursing call to report that pt's hbg was 7.7. Reason For Visit: PNEUMONIA SEPSIS MM Physical Exam Vital Signs: Temp Pulse Resp BP Pulse Ox 98.1 F 95 20 154/72 H 98 02/22/17 07:33 02/22/17 08:28 02/22/17 08:28 02/22/17 07:33 02/22/17 08:28 Pulse Oximeter Continuous Start: 02/19/17 23: 43 Freq: RTQ4 Status: Active Document 02/22/17 08:28 LDA (Rec: 02/22/17 08:32 LDA [email or web address]) Pulse Oximetry Assessment Oxygen Saturation (92-100) 98 Oxygen Flow Rate (L/min) 2 Oxygen Delivery Method Nasal Cannula Equipment Usage Equipment in Use Continuous SpO2 Machine # [id number] Intake & Output 02/21/17 02/22/17 02/23/17 06:59 06:59 06:59 Intake Total 1622 2724 Output Total 2901 1999 Balance -1279 724 Weight 85.6 kg 81.8 kg General appearance: PRESENT: no acute distress, well-developed, well-nourished Head exam: PRESENT: atraumatic, normocephalic Eye exam: PRESENT: conjunctiva pink, EOMI, PERRLA. ABSENT: scleral icterus Ear exam: PRESENT: normal external ear exam Mouth exam: PRESENT: moist, tongue midline Neck exam: ABSENT: carotid bruit, JVD, lymphadenopathy, thyromegaly Respiratory exam: PRESENT: clear to auscultation leni. ABSENT: rales, rhonchi, wheezes Cardiovascular exam: PRESENT: RRR. ABSENT: diastolic murmur, rubs, systolic murmur Pulses: PRESENT: normal dorsalis pedis pul Vascular exam: PRESENT: normal capillary refill GI/Abdominal exam: PRESENT: normal bowel sounds, soft. ABSENT: distended, guarding, mass, organolmegaly, rebound, tenderness Rectal exam: PRESENT: deferred Extremities exam: PRESENT: full ROM. ABSENT: calf tenderness, clubbing, pedal edema Neurological exam: PRESENT: alert, awake, oriented to person, oriented to place , oriented to time, oriented to situation, CN II-XII grossly intact. ABSENT: motor sensory deficit Psychiatric exam: PRESENT: appropriate affect, normal mood. ABSENT: homicidal ideation, suicidal ideation Skin exam: PRESENT: dry, intact, warm. ABSENT: cyanosis, rash Results Laboratory Results: 02/22/17 06:35 02/22/17 06:35 02/21/17 02/22/17 02/22/17 17:20 06:35 06:35 WBC 8.6 RBC 2.38 L Hgb 7.7 L Hct 22.4 L MCV 94 MCH 32.3 MCHC 34.4 RDW 21.3 H Plt Count 72 L Seg Neutrophils % Not Reportable Lymphocytes % Not Reportable Monocytes % Not Reportable Eosinophils % Not Reportable Basophils % Not Reportable Absolute Neutrophils Not Reportable Absolute Lymphocytes Not Reportable Absolute Monocytes Not Reportable Absolute Eosinophils Not Reportable Absolute Basophils Not Reportable Sodium Potassium Chloride Carbon Dioxide Anion Gap BUN Creatinine 1.45 H Est GFR ( Amer) > 60 Est GFR (Non-Af Amer) 49 L Glucose Calcium Magnesium 2.1 02/22/17 06:35 WBC RBC Hgb Hct MCV MCH MCHC RDW Plt Count Seg Neutrophils % Lymphocytes % Monocytes % Eosinophils % Basophils % Absolute Neutrophils Absolute Lymphocytes Absolute Monocytes Absolute Eosinophils Absolute Basophils Sodium 144.8 Potassium 3.8 Chloride 120 H Carbon Dioxide 13 L Anion Gap 12 BUN 37 H Creatinine 1.36 H Est GFR ( Amer) > 60 Est GFR (Non-Af Amer) 53 L Glucose 158 H Calcium 9.2 Magnesium 02/20/17 02:20 Clean Catch Midstream Urine Culture - Final NO GROWTH 2 DAYS Impressions: Chest/Abdomen CTA 02/19/17 20:41 IMPRESSION: Dense consolidation in the posterior segments of the right lower lobe. Additional patchy areas of consolidation are present in the parahilar regions of both upper lobes and in the left lower lobe. No emboli visualized in the main pulmonary arteries. Breathing motion artifact limits evaluation of the segmental branches. Assessment & Plan - Diagnosis (1) Epistaxis Is this a current diagnosis for this admission?: Yes Plan: Will hold anticoagulation. Will order for Afrin now. (2) Anemia Qualifiers: Anemia type: unspecified type Qualified Code(s): D64.9 - Anemia, unspecified Is this a current diagnosis for this admission?: Yes Plan: Will transfuse two units of PRBCs. (3) Thrombocytopenia Is this a current diagnosis for this admission?: Yes Plan: Will continue to monitor. (4) Acute renal failure Is this a current diagnosis for this admission?: Yes Plan: resolving. Will continue to monitor. (5) Hypertension Qualifiers: Hypertension type: unspecified Qualified Code(s): I10 - Essential (primary ) hypertension Is this a current diagnosis for this admission?: Yes Plan: Will continue to monitor. (6) Pneumonia Qualifiers: Pneumonia type: due to unspecified organism Laterality: bilateral Lung location: upper lobe of lung Qualified Code(s): J18.9 - Pneumonia, unspecified organism Is this a current diagnosis for this admission?: Yes Plan: Will discontinue Vancomycin. Will continue Levaquin and Cefepime. (7) Hypokalemia Is this a current diagnosis for this admission?: Yes Plan: stable. (8) Multiple myeloma Qualifiers: Multiple myeloma remission status: not in remission Qualified Code(s): C90.00 - Multiple myeloma not having achieved remission Is this a current diagnosis for this admission?: Yes Plan: Pt to see Oncology. - Time Time Spent with patient: 15-24 minutes
[2017-02-23] MEDS: LEVOFLOXACIN 750 MG/D5W RTU 750 MG/150 ML RTUPB IV SCH ×2 (01:04→22:08)
[2017-02-23] MEDS: CEFEPIME 2 GM/D5W RTU 2 GM/50 ML RTUPB IV SCH ×2 (01:04→09:40)
[2017-02-23] MEDS: LEVALBUTEROL HCL NEB 1.25 MG/3 ML AMPUL NEB SCH ×4 (02:27→20:21)
[2017-02-23 03:32] LABS: HEMATOCRIT 29.2 % (37.9-51.0); HGB HCT DIFFERENCE 0.5; MEAN CORPUSCULAR HEMOGLOBIN 31.5 pg (27.0-33.4); MEAN CORPUSCULAR HGB CONC 33.8 g/dL (32.0-36.0); MEAN CORPUSCULAR VOLUME 93 fl (80-97); RED BLOOD COUNT 3.14 10^6/uL (4.35-5.55); RED CELL DISTRIBUTION WIDTH 19.8 % (11.5-14.0); WHITE BLOOD COUNT 8.9 10^3/uL (4.0-10.5)
[2017-02-23 03:56] LABS: HEMOGLOBIN 9.9 g/dL (13.5-17.0)
[2017-02-23 04:07] LABS: BAND NEUTROPHILS % (MANUAL) 7 % (3-5); BASOPHILS % (MANUAL) 0 % (0-2); EOSINOPHILS % (MANUAL) 0 % (0-6); LYMPHOCYTES % (MANUAL) 21 % (13-45); NUCLEATED RED BLOOD CELLS 3 /100 WBC (0); TOTAL CELLS COUNTED 100
[2017-02-23 04:18] LABS: ANISOCYTOSIS 2+; BURR CELLS SLIGHT; POIKILOCYTOSIS SLIGHT; POLYCHROMASIA SLIGHT; TARGET CELLS SLIGHT; TEAR DROP CELLS SLIGHT; TOXIC GRANULATION 1+; TOXIC VACUOLATION PRESENT
[2017-02-23] MEDS: METHYLPREDNISOLONE INJ 125 MG/2 ML SDV IV SCH (06:16)
[2017-02-23] MEDS: ACYCLOVIR 200 MG CAPSULE PO SCH ×4 (06:18→23:23)
[2017-02-23] MEDS: LANSOPRAZOLE 15 MG TAB.RAP.DR PO SCH ×2 (06:18→17:54)
[2017-02-23 06:34] LABS: HEMATOCRIT 27.4 % (37.9-51.0); HEMOGLOBIN 9.5 g/dL (13.5-17.0); HGB HCT DIFFERENCE 1.1; MEAN CORPUSCULAR HGB CONC 34.6 g/dL (32.0-36.0); MEAN CORPUSCULAR VOLUME 93 fl (80-97); RED BLOOD COUNT 2.96 10^6/uL (4.35-5.55); RED CELL DISTRIBUTION WIDTH 20.8 % (11.5-14.0); WHITE BLOOD COUNT 9.2 10^3/uL (4.0-10.5)
[2017-02-23 06:52] LABS: ALANINE AMINOTRANSFERASE 38 U/L (21-72); ALBUMIN 2.9 g/dL (3.5-5.0); ALKALINE PHOSPHATASE 57 U/L (38-126); ANION GAP 14 (5-19); ASPARTATE AMINO TRANSFERASE 29 U/L (17-59); BILIRUBIN,DIRECT 0.5 mg/dL (0.0-0.4); BILIRUBIN,TOTAL 0.6 mg/dL (0.2-1.3); BLOOD UREA NITROGEN 40 mg/dL (7-20); CALCIUM 8.9 mg/dL (8.4-10.2); CARBON DIOXIDE 14 mmol/L (22-30); CHLORIDE 117 mmol/L (98-107); CREATININE RESULT 1.28 mg/dL (0.52-1.25); GLUCOSE 155 mg/dL (75-110); SODIUM 144.7 mmol/L (137-145); TOTAL PROTEIN 8.6 g/dL (6.3-8.2)
[2017-02-23 07:11] LABS: BAND NEUTROPHILS % (MANUAL) 7 % (3-5); BASOPHILS % (MANUAL) 0 % (0-2); EOSINOPHILS % (MANUAL) 0 % (0-6); LYMPHOCYTES % (MANUAL) 12 % (13-45); NUCLEATED RED BLOOD CELLS 2 /100 WBC (0); TOTAL CELLS COUNTED 100
[2017-02-23 07:18] LABS: ANISOCYTOSIS 2+; BURR CELLS SLIGHT; POIKILOCYTOSIS SLIGHT; POLYCHROMASIA SLIGHT; TEAR DROP CELLS SLIGHT
[2017-02-23] MEDS: MULTIVITAMINS W-IRON TABLET, CHEWABLE PO SCH (09:34)
[2017-02-23] MEDS: MAGNESIUM OXIDE 400 MG TABLET PO SCH (09:35)
[2017-02-23] MEDS: METOPROLOL SUCCINATE 25 MG TAB.SR.24H PO SCH (09:35)
[2017-02-23] MEDS: DULOXETINE HCL 30 MG CAPSULE.DR PO SCH ×2 (09:37→17:54)
[2017-02-23] MEDS: OXYCODONE HCL IR 5 MG TABLET PO SCH ×2 (09:38→22:06)
[2017-02-23] MEDS: GUAIFENESIN 600 MG TABLET.SA PO SCH ×2 (09:38→22:06)
[2017-02-23] MEDS: THIAMINE HCL 100 MG TABLET PO SCH (09:38)
[2017-02-23] MEDS: FOLIC ACID 1 MG TABLET PO SCH (09:39)
[2017-02-23] MEDS ORDERED: BENZONATATE 100 MG CAPSULE PO PRN (12:57)
--- NOTE | 2017-02-23 13:08 | PDOC PROGRESS REPORT ---
Subjective Progress Note for:: 02/23/17 Subjective:: Pt states that the nasal bleeding has improved. Pt states that he is coughing more. Nursing states that the Nurse Practitioner called concerned that pt has a GI bleed. Nurse was informed that that is not true. Pt has had a severe nose bleed for the last several days. Pt states that he is starting to feel better. Reason For Visit: PNEUMONIA SEPSIS MM Physical Exam Vital Signs: Temp Pulse Resp BP Pulse Ox 97.5 F 85 18 153/93 H 99 02/23/17 08:29 02/23/17 08:29 02/23/17 08:29 02/23/17 08:29 02/23/17 08:29 Pulse Oximeter Continuous Start: 02/19/17 23: 43 Freq: RTQ4 Status: Active Document 02/23/17 08:21 JDR (Rec: 02/23/17 08:22 JDR [email or web address]) Pulse Oximetry Assessment Oxygen Saturation (92-100) 97 Oxygen Flow Rate (L/min) 2 Oxygen Delivery Method Nasal Cannula Equipment Usage Equipment in Use Continuous SpO2 Machine # 13 Intake & Output 02/22/17 02/23/17 02/24/17 06:59 06:59 06:59 Intake Total 2724 4017 Output Total 1999 1725 Balance 724 2292 Weight 81.8 kg 80.7 kg General appearance: PRESENT: no acute distress, well-developed, well-nourished Head exam: PRESENT: atraumatic, normocephalic Eye exam: PRESENT: conjunctiva pink, EOMI, PERRLA. ABSENT: scleral icterus Ear exam: PRESENT: normal external ear exam Mouth exam: PRESENT: moist, tongue midline Neck exam: ABSENT: carotid bruit, JVD, lymphadenopathy, thyromegaly Respiratory exam: PRESENT: other - + bilateral base crackles, No wheezing, Good air exchanges. Cardiovascular exam: PRESENT: RRR. ABSENT: diastolic murmur, rubs, systolic murmur Pulses: PRESENT: normal dorsalis pedis pul Vascular exam: PRESENT: normal capillary refill GI/Abdominal exam: PRESENT: normal bowel sounds, soft. ABSENT: distended, guarding, mass, organolmegaly, rebound, tenderness Rectal exam: PRESENT: deferred Extremities exam: PRESENT: full ROM. ABSENT: calf tenderness, clubbing, pedal edema Neurological exam: PRESENT: alert, awake, oriented to person, oriented to place , oriented to time, oriented to situation, CN II-XII grossly intact. ABSENT: motor sensory deficit Psychiatric exam: PRESENT: appropriate affect, normal mood. ABSENT: homicidal ideation, suicidal ideation Skin exam: PRESENT: dry, intact, warm. ABSENT: cyanosis, rash Results Laboratory Results: 02/23/17 05:44 02/23/17 05:44 02/22/17 02/23/17 02/23/17 14:15 03:00 05:44 WBC 8.9 9.2 RBC 3.14 L 2.96 L Hgb 9.9 L D 9.5 L Hct 29.2 L 27.4 L MCV 93 93 MCH 31.5 32.0 MCHC 33.8 34.6 RDW 19.8 H 20.8 H Plt Count 63 L 63 L Seg Neutrophils % Not Reportable Not Reportable Lymphocytes % Not Reportable Not Reportable Monocytes % Not Reportable Not Reportable Eosinophils % Not Reportable Not Reportable Basophils % Not Reportable Not Reportable Absolute Neutrophils Not Reportable Not Reportable Absolute Lymphocytes Not Reportable Not Reportable Absolute Monocytes Not Reportable Not Reportable Absolute Eosinophils Not Reportable Not Reportable Absolute Basophils Not Reportable Not Reportable Sodium Potassium Chloride Carbon Dioxide Anion Gap BUN Creatinine Est GFR ( Amer) Est GFR (Non-Af Amer) Glucose Calcium Total Bilirubin AST ALT Alkaline Phosphatase Total Protein Albumin Blood Type A POSITIVE Antibody Screen NEGATIVE 02/23/17 05:44 WBC RBC Hgb Hct MCV MCH MCHC RDW Plt Count Seg Neutrophils % Lymphocytes % Monocytes % Eosinophils % Basophils % Absolute Neutrophils Absolute Lymphocytes Absolute Monocytes Absolute Eosinophils Absolute Basophils Sodium 144.7 Potassium 4.0 Chloride 117 H Carbon Dioxide 14 L Anion Gap 14 BUN 40 H Creatinine 1.28 H Est GFR ( Amer) > 60 Est GFR (Non-Af Amer) 57 L Glucose 155 H Calcium 8.9 Total Bilirubin 0.6 AST 29 ALT 38 Alkaline Phosphatase 57 Total Protein 8.6 H Albumin 2.9 L Blood Type Antibody Screen 02/20/17 02:20 Clean Catch Midstream Urine Culture - Final NO GROWTH 2 DAYS Impressions: Chest/Abdomen CTA 02/19/17 20:41 IMPRESSION: Dense consolidation in the posterior segments of the right lower lobe. Additional patchy areas of consolidation are present in the parahilar regions of both upper lobes and in the left lower lobe. No emboli visualized in the main pulmonary arteries. Breathing motion artifact limits evaluation of the segmental branches. Assessment & Plan - Diagnosis (1) Epistaxis Is this a current diagnosis for this admission?: Yes Plan: S/P 2 units of PRBC: Will hold anticoagulation. Will consult ENT today. Pt has had issues with severe nose bleeds in the past. Pt has history of DVT and has been on chronic anticoagulation. (2) Anemia Qualifiers: Anemia type: unspecified type Qualified Code(s): D64.9 - Anemia, unspecified Is this a current diagnosis for this admission?: Yes Plan: S/P 2 units of PRBCs in setting of Severe Epitaxis and MM: Pt hemoglobin stable. Anticoagulation has been discontinued. (3) Thrombocytopenia Is this a current diagnosis for this admission?: Yes Plan: Platelets continue to trend down will continue to monitor. (4) Acute renal failure Is this a current diagnosis for this admission?: Yes Plan: resolving. Will continue to monitor. (5) Hypertension Qualifiers: Hypertension type: unspecified Qualified Code(s): I10 - Essential (primary ) hypertension Is this a current diagnosis for this admission?: Yes Plan: Will continue to monitor. (6) Pneumonia Qualifiers: Pneumonia type: due to unspecified organism Laterality: bilateral Lung location: upper lobe of lung Qualified Code(s): J18.9 - Pneumonia, unspecified organism Is this a current diagnosis for this admission?: Yes Plan: Will discontinue Cefepime. Will continue Levaquin. (7) Hypokalemia Is this a current diagnosis for this admission?: Yes Plan: stable. (8) Multiple myeloma Qualifiers: Multiple myeloma remission status: not in remission Qualified Code(s): C90.00 - Multiple myeloma not having achieved remission Is this a current diagnosis for this admission?: Yes Plan: Pt to see Oncology. - Time Time Spent with patient: 15-24 minutes
--- NOTE | 2017-02-23 20:33 | CONSULTATION REPORT E ---
Consultation Report NAME: ANGIE LANGFORD : 1955 AGE: 61Y DATE: 02/19/2017 326 A TO: MADDY PACHECO D.O. FROM: PRACHI NAQVI M.D. Requesting Physician REASON FOR CONSULTATION: Persistent epistaxis. HISTORY OF PRESENT ILLNESS: This is a 61-year-old Afro-[place] male [facility] medical problems. The patient, on February 19, 2017, was noted to have persistent epistaxis and an ENT consult was placed for workup and definitive management. The patient had been on anticoagulation with Eliquis, which was stopped. The patient has a history of epistaxis, requiring bilateral nasal packing 2 years ago, where he was seen at [facility]. The patient denies epistaxis since that time until this present episode. PAST MEDICAL HISTORY: See medical record and admission history and physical. PAST SURGICAL HISTORY: See medical record and admission history and physical. SOCIAL HISTORY: See medical record and admission history and physical. REVIEW OF SYSTEMS: See medical record and admission history and physical. PHYSICAL EXAMINATION: VITAL SIGNS: Stable. HEAD: Normocephalic, atraumatic. EYES: Extraocular muscles intact. EARS: Ear canals were unremarkable and the tympanic membranes were intact, with no middle ear effusions present. NOSE: Bilateral extensive nasal clots were present and removed with bilateral nasal suctioning, after Afrin was applied on each side. The left Little's area was noted to be with prominent friable vessels, but no active bleeding noted. ORAL CAVITY/OROPHARYNX: Moist mucous membranes. Lips were unremarkable. Poor dentition noted. Anterior tongue was mobile and without difficulty. Tonsils were unremarkable. Soft palatal tissues were redundant in nature and the uvula was elongated. There was scant bright red blood noted at the posterior pharynx. NECK: Supple, with no lymphadenopathy or thyroid concerns noted. NEUROLOGIC: Cranial nerves 2 through 12 were grossly intact. MUSCULOSKELETAL: No TMJ tenderness to palpation. ASSESSMENT: Persistent epistaxis. PLAN: The patient underwent flexible fiberoptic evaluation with suction debridement of the bilateral nasal passages, followed by consent for nasal cautery, which was performed on the left without difficulty. Bacitracin ointment will be applied to each nasal passage b.i.d. x14 days. Nursing was present during the evaluation, endoscopy and nasal cautery, with post-procedure care also discussed. The patient will plan to follow up with ENT once discharged from the hospital. Otherwise, ENT, Dr. Pacheco, will remain available as needed. PROCEDURES PERFORMED: 1. Bilateral flexible fiberoptic nasal endoscopy (CPT code 71741). 2. Control of anterior epistaxis (CPT code 85416). PROCEDURE #1: The patient was next verbally consented for bilateral flexible fiberoptic evaluation. The patient voiced an understanding of the procedure and verbally agreed to proceed. Flexible fiberoptic evaluation with bilateral clots noted, which were suctioned, along with additional bright red blood noted. There were no sinonasal polyps or nasal masses noted. There were no additional blood clots noted. The nasopharynx and lexie were unremarkable except for bright red blood and there were no clots noted. PROCEDURE #2: At this point, recommendation was for left nasal cautery with silver nitrate. The risks and complications of the described procedure were all discussed in detail with the patient, which included bleeding, scarring, infection, injury to blood vessels, nerves and rarely a septal perforation. The patient voiced an understanding of all the risks and complications, as well as the recommendations for the procedure, and a written consent was obtained. Silver nitrate was applied to Little's area on the left to address the friable vessels. No active bleeding was noted. Adequate hemostasis was noted. There were no complications. DICTATING PHYSICIAN: MADDY PACHECO D.O. [id number] PHY#: [id number] ID: [id number] JOB#: [id number] ACCT: [id number] cc:MADDY PACHECO D.O. > [facility]PITALDebra
[2017-02-23] MEDS: BACITRACIN ZINC OINTMENT 15 GM TP SCH (22:07)
[2017-02-24] MEDS: LEVALBUTEROL HCL NEB 1.25 MG/3 ML AMPUL NEB SCH ×4 (02:15→20:43)
[2017-02-24] MEDS: ACYCLOVIR 200 MG CAPSULE PO SCH ×3 (05:36→17:16)
[2017-02-24] MEDS: NORMAL SALINE 1000 ML 1,000 ML IV PRN (05:36)
[2017-02-24] MEDS: LANSOPRAZOLE 15 MG TAB.RAP.DR PO SCH ×2 (05:36→16:06)
[2017-02-24 06:36] LABS: HEMATOCRIT 27.1 % (37.9-51.0); HEMOGLOBIN 9.4 g/dL (13.5-17.0); HGB HCT DIFFERENCE 1.1; MEAN CORPUSCULAR HEMOGLOBIN 31.8 pg (27.0-33.4); MEAN CORPUSCULAR HGB CONC 34.5 g/dL (32.0-36.0); MEAN CORPUSCULAR VOLUME 92 fl (80-97); RED BLOOD COUNT 2.95 10^6/uL (4.35-5.55); RED CELL DISTRIBUTION WIDTH 21.1 % (11.5-14.0); WHITE BLOOD COUNT 7.4 10^3/uL (4.0-10.5)
[2017-02-24 06:46] LABS: ALANINE AMINOTRANSFERASE 37 U/L (21-72); ALBUMIN 2.8 g/dL (3.5-5.0); ANION GAP 14 (5-19); ASPARTATE AMINO TRANSFERASE 22 U/L (17-59); BILIRUBIN,DIRECT 0.5 mg/dL (0.0-0.4); BILIRUBIN,TOTAL 0.6 mg/dL (0.2-1.3); BLOOD UREA NITROGEN 35 mg/dL (7-20); CALCIUM 8.1 mg/dL (8.4-10.2); CARBON DIOXIDE 12 mmol/L (22-30); CHLORIDE 118 mmol/L (98-107); CREATININE RESULT 1.07 mg/dL (0.52-1.25); GLUCOSE 116 mg/dL (75-110); NEONATAL BILIRUBIN RESULT 0.1 mg/dL (0.1-1.1); POTASSIUM 3.9 mmol/L (3.6-5.0); SODIUM 143.9 mmol/L (137-145); TOTAL PROTEIN 8.1 g/dL (6.3-8.2)
[2017-02-24 06:48] LABS: ALKALINE PHOSPHATASE 55 U/L (38-126)
[2017-02-24 08:05] LABS: BAND NEUTROPHILS % (MANUAL) 4 % (3-5); BASOPHILS % (MANUAL) 0 % (0-2); EOSINOPHILS % (MANUAL) 0 % (0-6); LYMPHOCYTES % (MANUAL) 10 % (13-45); TOTAL CELLS COUNTED 100
[2017-02-24 08:09] LABS: ANISOCYTOSIS 3+; POLYCHROMASIA SLIGHT; ROULEAUX 2+
[2017-02-24] MEDS: DULOXETINE HCL 30 MG CAPSULE.DR PO SCH ×2 (09:25→17:16)
[2017-02-24] MEDS: METOPROLOL SUCCINATE 25 MG TAB.SR.24H PO SCH (09:25)
[2017-02-24] MEDS: FOLIC ACID 1 MG TABLET PO SCH (09:25)
[2017-02-24] MEDS: GUAIFENESIN 600 MG TABLET.SA PO SCH ×2 (09:25→21:51)
[2017-02-24] MEDS: MULTIVITAMINS W-IRON TABLET, CHEWABLE PO SCH (09:26)
[2017-02-24] MEDS: THIAMINE HCL 100 MG TABLET PO SCH (09:26)
[2017-02-24] MEDS: MAGNESIUM OXIDE 400 MG TABLET PO SCH (09:27)
[2017-02-24] MEDS: OXYCODONE HCL IR 5 MG TABLET PO SCH ×2 (09:27→21:51)
[2017-02-24] MEDS: BACITRACIN ZINC OINTMENT 15 GM TP SCH ×2 (09:38→21:49)
[2017-02-24] MEDS ORDERED: DEXAMETHASONE 4 MG TABLET PO SCH (10:00)
[2017-02-24 15:36] LABS: ANION GAP 13 (5-19); BLOOD UREA NITROGEN 30 mg/dL (7-20); CALCIUM 8.4 mg/dL (8.4-10.2); CARBON DIOXIDE 14 mmol/L (22-30); CHLORIDE 117 mmol/L (98-107); CREATININE RESULT 1.16 mg/dL (0.52-1.25); GLUCOSE 125 mg/dL (75-110); POTASSIUM 4.1 mmol/L (3.6-5.0); SODIUM 143.7 mmol/L (137-145)
--- NOTE | 2017-02-24 17:18 | CONSULTATION REPORT E ---
Consultation Report NAME: ANGIE LANGFORD : 1955 AGE: 61Y DATE: 02/24/2017 326 A TO: JAIMEE MURPHY M.D. FROM: PRACHI NAQVI M.D. Requesting Physician HISTORY OF PRESENT ILLNESS: The patient is a 61-year-old man who was diagnosed with multiple myeloma in 2009. He underwent a bone marrow transplant, April of 2010. He was on *------* maintenance; however, his myeloma serology worsened in April of 2014 and he was started back on chemotherapy. He had been on previous chemotherapy regimens, including Velcade-based treatment, Kyprolis-based chemotherapy. He recently had an abdominal surgery for what was described as [place] at the [facility]. He had an ulcer and a hiatal hernia. Following discharge, he unfortunately also developed pneumonia and has been sick in [facility] since then. He was admitted into the hospital February 20 with pneumonia. He is currently undergoing treatment. Overnight, he had a nosebleed and it was cauterized by ENT. He no longer has any nasal bleeding. Today, he feels a little bit better. I saw him at his bedside, sitting down. PHYSICAL EXAMINATION: He is an elderly man. He is slightly frail. Not acutely ill-looking. He has no leg edema. IMPRESSION AND PLAN: The patient is a 61-year-old man with a history of multiple myeloma, who recently had abdominal surgery and is presently being treated for pneumonia. I had a long discussion with him at his bedside, explaining to him that at this time, I would not treat his multiple myeloma. I encouraged him to continue to heal from his surgery and also the ongoing medical care. My plan is to follow him as an outpatient, at which time I will repeat his myeloma serologies and then decide on his treatment based on his latest myeloma serology. I thank you for this consultation and allowing me to be part of his care. DICTATING PHYSICIAN: JAIMEE MURPHY M.D. [id number] PHY#: [id number] ID: [id number] JOB#: [id number] ACCT: [id number] cc:JAIMEE MURPHY M.D. >
--- NOTE | 2017-02-24 18:00 | PDOC PROGRESS REPORT ---
Subjective Progress Note for:: 02/24/17 Subjective:: The patient is sitting up in the chair. Overall he states that he continues to feel poorly but he is feeling better than when he came to the hospital. He denies fever chills. No chest pain, shortness of breath or heart palpitations. He does not have much in the way of appetite but is had no nausea or vomiting. He does report multiple episodes of watery diarrhea. No crampy abdominal pain however. No dysuria, frequency or hematuria. Reason For Visit: PNEUMONIA SEPSIS MM Physical Exam Vital Signs: Temp Pulse Resp BP Pulse Ox 98.0 F 85 20 141/73 H 99 02/24/17 15:06 02/24/17 15:06 02/24/17 15:06 02/24/17 15:06 02/24/17 15:06 Pulse Oximeter Continuous Start: 02/19/17 23: 43 Freq: RTQ4 Status: Active Document 02/24/17 11:49 [facility] (Rec: 02/24/17 11:49 [facility] [email or web address]) Pulse Oximetry Assessment Oxygen Saturation (92-100) 97 Oxygen Flow Rate (L/min) 2 Oxygen Delivery Method Nasal Cannula Equipment Usage Equipment in Use Continuous SpO2 Machine # 13 Intake & Output 02/23/17 02/24/17 02/25/17 06:59 06:59 06:59 Intake Total 4017 3782 710 Output Total 1725 3075 450 Balance 2292 707 260 Weight 80.7 kg 80.2 kg General appearance: PRESENT: no acute distress, thin, well-developed Head exam: PRESENT: atraumatic, normocephalic Eye exam: PRESENT: conjunctiva pink, EOMI, PERRLA. ABSENT: scleral icterus Mouth exam: PRESENT: moist, tongue midline Neck exam: ABSENT: carotid bruit, JVD, lymphadenopathy, thyromegaly Respiratory exam: PRESENT: decreased breath sounds, rhonchi. ABSENT: wheezes Cardiovascular exam: PRESENT: RRR. ABSENT: diastolic murmur, rubs, systolic murmur GI/Abdominal exam: PRESENT: distended, firm, hyperactive bowel sounds, tenderness Rectal exam: PRESENT: deferred Extremities exam: PRESENT: calf tenderness Neurological exam: PRESENT: alert, awake, oriented to person, oriented to place , oriented to time, oriented to situation, CN II-XII grossly intact. ABSENT: motor sensory deficit Psychiatric exam: PRESENT: appropriate affect, normal mood. ABSENT: homicidal ideation, suicidal ideation Skin exam: PRESENT: dry, intact, warm. ABSENT: cyanosis, rash Results Laboratory Results: 02/24/17 05:35 02/24/17 13:39 02/24/17 02/24/17 02/24/17 05:35 05:35 09:07 WBC 7.4 RBC 2.95 L Hgb 9.4 L Hct 27.1 L MCV 92 MCH 31.8 MCHC 34.5 RDW 21.1 H Plt Count 62 L Seg Neutrophils % Not Reportable Lymphocytes % Not Reportable Monocytes % Not Reportable Eosinophils % Not Reportable Basophils % Not Reportable Absolute Neutrophils Not Reportable Absolute Lymphocytes Not Reportable Absolute Monocytes Not Reportable Absolute Eosinophils Not Reportable Absolute Basophils Not Reportable Sodium 143.9 Potassium 3.9 Chloride 118 H Carbon Dioxide 12 L Anion Gap 14 BUN 35 H Creatinine 1.07 Est GFR ( Amer) > 60 Est GFR (Non-Af Amer) > 60 Glucose 116 H Lactic Acid 2.1 Calcium 8.1 L Total Bilirubin 0.6 AST 22 ALT 37 Alkaline Phosphatase 55 Total Protein 8.1 Albumin 2.8 L 02/24/17 13:39 WBC RBC Hgb Hct MCV MCH MCHC RDW Plt Count Seg Neutrophils % Lymphocytes % Monocytes % Eosinophils % Basophils % Absolute Neutrophils Absolute Lymphocytes Absolute Monocytes Absolute Eosinophils Absolute Basophils Sodium 143.7 Potassium 4.1 Chloride 117 H Carbon Dioxide 14 L Anion Gap 13 BUN 30 H Creatinine 1.16 Est GFR ( Amer) > 60 Est GFR (Non-Af Amer) > 60 Glucose 125 H Lactic Acid Calcium 8.4 Total Bilirubin AST ALT Alkaline Phosphatase Total Protein Albumin 02/21/17 06:15 Sputum AFB Smear Concentration - Final 02/21/17 06:15 Sputum Acid Fast Bacilli Smear - Final 02/24/17 05:35 NT-Pro-B Natriuret Pep 4350 H Impressions: Chest/Abdomen CTA 02/19/17 20:41 IMPRESSION: Dense consolidation in the posterior segments of the right lower lobe. Additional patchy areas of consolidation are present in the parahilar regions of both upper lobes and in the left lower lobe. No emboli visualized in the main pulmonary arteries. Breathing motion artifact limits evaluation of the segmental branches. Assessment & Plan - Diagnosis (1) Acute hypoxemic respiratory failure Is this a current diagnosis for this admission?: Yes Plan: Secondary to sepsis and pneumonia. Improving (2) Sepsis Qualifiers: Sepsis type: sepsis due to unspecified organism Qualified Code(s): A41.9 - Sepsis, unspecified organism Is this a current diagnosis for this admission?: Yes Plan: Present on admission secondary to underlying pneumonia. Resolving. (3) Pneumonia Qualifiers: Pneumonia type: due to unspecified organism Laterality: bilateral Lung location: upper lobe of lung Qualified Code(s): J18.9 - Pneumonia, unspecified organism Is this a current diagnosis for this admission?: Yes Plan: Improving. He is on Levaquin. The initial concerns were for gram negatives and MRSA as well as atypical organisms due to his immunosuppressed state. He was initially on broad-spectrum IV antibiotics however his antibiotic coverage has been narrowed at this point p.o. Levaquin. From a respiratory standpoint he is doing well. (4) Metabolic acidosis Plan: His CO2 level is significantly low this morning. I am concerned in light of his ongoing diarrhea of some sort of abdominal process. Going to rule the patient out for C. difficile and we will obtain a CT scan of the abdomen and pelvis for further evaluation. I will repeat a chemistry panel this afternoon. (5) Multiple myeloma Plan: He follows with Dr. Shah. Currently not undergoing treatment due to all of his multiple medical issues. (6) Acute renal failure Is this a current diagnosis for this admission?: Yes Plan: Secondary to sepsis and dehydration. His creatinine is greatly improved. (7) DVT (deep venous thrombosis) Qualifiers: DVT location: lower extremity Chronicity: chronic Laterality: unspecified laterality Is this a current diagnosis for this admission?: Yes Plan: His anticoagulation has been stopped due to his nosebleed. I will talk to Dr. Shah tomorrow when to restart this. (8) Anemia Plan: He had a precipitous drop in his hemoglobin likely due to epistaxis. He was transfused 1 unit of packed red blood cells with the appropriate response to his hemoglobin. He has an anemia of chronic disease as well as acute blood loss anemia at this point. (9) Thrombocytopenia Plan: Stable. Likely related to his underlying malignancy (10) Hypokalemia Is this a current diagnosis for this admission?: Yes Plan: Repleted and resolved (11) Hypomagnesemia Is this a current diagnosis for this admission?: Yes Plan: Repleted and resolved (12) Epistaxis Is this a current diagnosis for this admission?: Yes Plan: He was seen by ENT yesterday who cauterized the area. No further nosebleeds. His anticoagulation is on hold. (13) Immunocompromised state Is this a current diagnosis for this admission?: Yes Plan: Secondary to multiple myeloma and treatment. (14) Hypertension Qualifiers: Hypertension type: unspecified Qualified Code(s): I10 - Essential (primary ) hypertension Is this a current diagnosis for this admission?: Yes Plan: Stable (15) Hyponatremia Plan: Resolved - Time Time Spent with patient: 25-34 minutes - Inpatient Certification Medical Necessity: Need For IV Fluids - The patient has significant metabolic acidosis requiring parenteral fluids and further workup. He is also having diarrhea and is at high risk for C. difficile. He needs to be ruled out for this. Timing of disposition will be determined by his clinical course.
--- NOTE | 2017-02-24 21:24 | RADIOLOGY REPORT (SQ) ---
EXAM DESCRIPTION: CT ABD/PELVIS WITH IV ONLY COMPLETED DATE/TIME: 02/24/2017 8:01 pm REASON FOR STUDY: diarrhea, metabolic acidosis COMPARISON: 01/27/2017 TECHNIQUE: CT scan of the abdomen and pelvis performed using helical scanning technique with dynamic intravenous contrast injection. No oral contrast. Images reviewed with lung, soft tissue, and bone windows. Reconstructed coronal and sagittal MPR images reviewed. Delayed images for evaluation of the urinary system also acquired. All images stored on PACS. All CT scanners at this facility use dose modulation, iterative reconstruction, and/or weight based d osing when appropriate to reduce radiation dose to as low as reasonably achievable (ALARA). [facility]: Dose Right [facility]: CareDose [facility]: Dose Right [facility]: Teradose 4D [facility]: [employer] CONTRAST TYPE AND DOSE: 86 mL Isovue 370 RENAL FUNCTION: Creatinine 1.16 RADIATION DOSE: . LIMITATIONS: Artifact is identified related to orthopedic hardware in the lumbar spine FINDINGS: LOWER CHEST: There is airspace consolidation in the right lung base and minimal airspace c onsolidation in the left lung base which could represent atelectatic changes or pneumonic consolidati on. LIVER: Normal size. No masses. No dilated ducts. SPLEEN: Normal size. No focal lesions. PANCREAS: No masses. No significant calcifications. No adjacent inflammation or peripancreatic fluid collections. Pancreatic duct not dilated. GALLBLADDER: No identified stones by CT criteria. No inflammatory changes to suggest cholecystitis. ADRENAL GLANDS: No significant masses or asymmetry. RIGHT KIDNEY AND URETER: No solid masses. No significant calcifications. No hydronephrosis or hyd roureter. LEFT KIDNEY AND URETER: No solid masses. Small renal cyst is again identified. No significant calci fications. No hydronephrosis or hydroureter. AORTA AND VESSELS: No aneurysm. No dissection. Renal arteries, SMA, celiac without stenosis. RETROPERITONEUM: No retroperitoneal adenopathy, hemorrhage or masses. BOWEL AND PERITONEAL CAVITY: No masses or inflammatory changes. No free fluid or peritoneal masses. APPENDIX: Again there is no evidence for appendicitis. Suture material is again identified in the ri t lower quadrant. PELVIS: No mass. No free fluid. Normal bladder. ABDOMINAL WALL: No masses. No hernias. BONES: The previously described bony changes involving the femoral heads appears stable. Orthopedic hardware is identified in the lumbar spine. OTHER: No other significant finding. IMPRESSION: No significant interval change. NO SIGNIFICANT OR ACUTE FINDING IN THE ABDOMEN OR PELVI S ON CT SCAN WITH IV CONTRAST. Other findings as noted above TECHNICAL DOCUMENTATION: JOB ID: [id number] Quality ID # [id number]: Final reports with documentation of one or more dose reduction techniques (e.g., Au tomated exposure control, adjustment of the mA and/or kV according to patient size, use of iterative reconstruction technique) 2010 [employer]- All Rights Reserved
[2017-02-24] MEDS ORDERED: LEVOFLOXACIN 750 MG TABLET PO SCH (22:00)
[2017-02-25] MEDS: ACYCLOVIR 200 MG CAPSULE PO SCH ×4 (00:27→18:08)
[2017-02-25] MEDS: LEVALBUTEROL HCL NEB 1.25 MG/3 ML AMPUL NEB SCH ×4 (01:54→20:05)
[2017-02-25 05:16] LABS: HEMATOCRIT 28.3 % (37.9-51.0); HGB HCT DIFFERENCE 1.7; MEAN CORPUSCULAR HEMOGLOBIN 32.1 pg (27.0-33.4); MEAN CORPUSCULAR HGB CONC 35.5 g/dL (32.0-36.0); MEAN CORPUSCULAR VOLUME 91 fl (80-97); RED BLOOD COUNT 3.13 10^6/uL (4.35-5.55); RED CELL DISTRIBUTION WIDTH 20.6 % (11.5-14.0)
[2017-02-25 05:28] LABS: ANION GAP 13 (5-19); BLOOD UREA NITROGEN 27 mg/dL (7-20); CALCIUM 7.9 mg/dL (8.4-10.2); CARBON DIOXIDE 15 mmol/L (22-30); CHLORIDE 116 mmol/L (98-107); CREATININE RESULT 0.97 mg/dL (0.52-1.25); GLUCOSE 156 mg/dL (75-110); MAGNESIUM 1.7 mg/dL (1.6-2.3); PHOSPHORUS 2.7 mg/dL (2.5-4.5); POTASSIUM 4.1 mmol/L (3.6-5.0); SODIUM 144.2 mmol/L (137-145)
[2017-02-25] MEDS: LANSOPRAZOLE 15 MG TAB.RAP.DR PO SCH ×2 (05:31→18:09)
[2017-02-25 05:41] LABS: BAND NEUTROPHILS % (MANUAL) 4 % (3-5); BASOPHILS % (MANUAL) 0 % (0-2); EOSINOPHILS % (MANUAL) 0 % (0-6); LYMPHOCYTES % (MANUAL) 10 % (13-45); TOTAL CELLS COUNTED 100
[2017-02-25 05:44] LABS: ANISOCYTOSIS 2+; OVALOCYTES SLIGHT; POIKILOCYTOSIS SLIGHT; SCHISTOCYTES SLIGHT; TEAR DROP CELLS SLIGHT; TOXIC GRANULATION 1+
[2017-02-25] MEDS: NORMAL SALINE 1000 ML 1,000 ML IV PRN ×2 (08:32→18:12)
[2017-02-25] MEDS: BACITRACIN ZINC OINTMENT 15 GM TP SCH ×2 (09:22→22:01)
[2017-02-25] MEDS: METOPROLOL SUCCINATE 25 MG TAB.SR.24H PO SCH (09:23)
[2017-02-25] MEDS: DULOXETINE HCL 30 MG CAPSULE.DR PO SCH ×2 (09:23→18:09)
[2017-02-25] MEDS: FOLIC ACID 1 MG TABLET PO SCH (09:23)
[2017-02-25] MEDS: MULTIVITAMINS W-IRON TABLET, CHEWABLE PO SCH (09:23)
[2017-02-25] MEDS: OXYCODONE HCL IR 5 MG TABLET PO SCH ×2 (09:23→21:59)
[2017-02-25] MEDS: MAGNESIUM OXIDE 400 MG TABLET PO SCH (09:24)
[2017-02-25] MEDS: THIAMINE HCL 100 MG TABLET PO SCH (09:24)
[2017-02-25] MEDS: GUAIFENESIN 600 MG TABLET.SA PO SCH ×2 (09:24→22:00)
[2017-02-25] MEDS: MEROPENEM 1 GM in NORMAL SALINE 50 ML IV SCH ×2 (09:48→18:09)
[2017-02-25] MEDS ORDERED: VANCOMYCIN HCL 0 MG in DEXTROSE 5%-WATER 250 ML IV NR (12:15)
--- NOTE | 2017-02-25 12:19 | PDOC PROGRESS REPORT ---
Subjective Progress Note for:: 02/25/17 Subjective:: His stool sample tested negative for Clostridium difficile and his CT of his abdomen was fairly unremarkable. I discussed this with the patient and his and all of their questions were answered. Overall he states he still is a little short of breath and is disappointed he still requiring oxygen. He has had no nausea, vomiting or abdominal pain. He continues to have some diarrhea but it is improving he believes he states his appetite is slowly improving. No urinary complaints Reason For Visit: PNEUMONIA SEPSIS MM Physical Exam Vital Signs: Temp Pulse Resp BP Pulse Ox 97.6 F 89 20 152/83 H 99 02/25/17 08:20 02/25/17 08:20 02/25/17 08:20 02/25/17 08:20 02/25/17 08:20 Pulse Oximeter Continuous Start: 02/19/17 23: 43 Freq: RTQ4 Status: Active Document 02/25/17 07:51 [facility] (Rec: 02/25/17 08:58 [facility] [email or web address]) Pulse Oximetry Assessment Oxygen Saturation (92-100) 96 Oxygen Flow Rate (L/min) 2 Oxygen Delivery Method Nasal Cannula Equipment Usage Equipment in Use Continuous SpO2 Machine # 13 Intake & Output 02/24/17 02/25/17 02/26/17 06:59 06:59 06:59 Intake Total 3782 4882 Output Total 3075 3075 Balance 707 1807 Weight 80.2 kg 82.4 kg General appearance: PRESENT: no acute distress, well-developed, well-nourished Head exam: PRESENT: atraumatic, normocephalic Eye exam: PRESENT: conjunctiva pink, EOMI, PERRLA. ABSENT: scleral icterus Mouth exam: PRESENT: moist, tongue midline Respiratory exam: PRESENT: crackles, rhonchi Cardiovascular exam: PRESENT: RRR. ABSENT: diastolic murmur, rubs, systolic murmur GI/Abdominal exam: PRESENT: normal bowel sounds, soft. ABSENT: distended, guarding, mass, organolmegaly, rebound, tenderness Rectal exam: PRESENT: deferred Extremities exam: PRESENT: full ROM. ABSENT: calf tenderness, clubbing, pedal edema Neurological exam: PRESENT: alert, awake, oriented to person, oriented to place , oriented to time, oriented to situation, CN II-XII grossly intact. ABSENT: motor sensory deficit Psychiatric exam: PRESENT: appropriate affect, normal mood. ABSENT: homicidal ideation, suicidal ideation Skin exam: PRESENT: dry, intact, warm. ABSENT: cyanosis, rash Results Laboratory Results: 02/25/17 04:52 02/25/17 04:52 02/24/17 02/25/17 02/25/17 13:39 04:52 04:52 WBC 9.0 RBC 3.13 L Hgb 10.0 L Hct 28.3 L MCV 91 MCH 32.1 MCHC 35.5 RDW 20.6 H Plt Count 55 L Seg Neutrophils % Not Reportable Lymphocytes % Not Reportable Monocytes % Not Reportable Eosinophils % Not Reportable Basophils % Not Reportable Absolute Neutrophils Not Reportable Absolute Lymphocytes Not Reportable Absolute Monocytes Not Reportable Absolute Eosinophils Not Reportable Absolute Basophils Not Reportable Sodium 143.7 144.2 Potassium 4.1 4.1 Chloride 117 H 116 H Carbon Dioxide 14 L 15 L Anion Gap 13 13 BUN 30 H 27 H Creatinine 1.16 0.97 Est GFR ( Amer) > 60 > 60 Est GFR (Non-Af Amer) > 60 > 60 Glucose 125 H 156 H Calcium 8.4 7.9 L Phosphorus 2.7 Magnesium 1.7 02/21/17 06:15 Sputum AFB Smear Concentration - Final 02/21/17 06:15 Sputum Acid Fast Bacilli Smear - Final 02/24/17 05:35 NT-Pro-B Natriuret Pep 4350 H Impressions: Chest/Abdomen CTA 02/19/17 20:41 IMPRESSION: Dense consolidation in the posterior segments of the right lower lobe. Additional patchy areas of consolidation are present in the parahilar regions of both upper lobes and in the left lower lobe. No emboli visualized in the main pulmonary arteries. Breathing motion artifact limits evaluation of the segmental branches. Abdomen/Pelvis CT 02/24/17 17:50 IMPRESSION: No significant interval change. NO SIGNIFICANT OR ACUTE FINDING IN THE ABDOMEN OR PELVIS ON CT SCAN WITH IV CONTRAST. Other findings as noted above Assessment & Plan - Diagnosis (1) Acute hypoxemic respiratory failure Is this a current diagnosis for this admission?: Yes Plan: Secondary to sepsis and pneumonia. Improving. Unfortunately the patient is still requiring oxygen supplementation. We will try to wean him off of this as the day goes on. (2) Sepsis Qualifiers: Sepsis type: sepsis due to unspecified organism Qualified Code(s): A41.9 - Sepsis, unspecified organism Is this a current diagnosis for this admission?: Yes Plan: Present on admission secondary to underlying pneumonia. Resolving. (3) Pneumonia Qualifiers: Pneumonia type: due to unspecified organism Laterality: bilateral Lung location: upper lobe of lung Qualified Code(s): J18.9 - Pneumonia, unspecified organism Is this a current diagnosis for this admission?: Yes Plan: Improving. He is on Levaquin. The initial concerns were for gram negatives and MRSA as well as atypical organisms due to his immunosuppressed state. He was initially on broad-spectrum IV antibiotics however his antibiotic coverage has been narrowed at this point p.o. Levaquin. Yesterday's however the CT scan of the abdomen yesterday revealed persistent pneumonia in the lower bases of his lungs. I am going to place him back on IV antibiotics. He has been in the hospital for a while and was recently hospitalized. I am going to place him on IV vancomycin and meropenem. He will continue the Levaquin to complete a course of treatment. (4) Metabolic acidosis Plan: Minimally improved today but going in the right direction. Hopefully continuing to treat his pneumonia will help his overall situation. (5) Multiple myeloma Plan: He follows with Dr. Shah. Currently not undergoing treatment due to all of his multiple medical issues. (6) Acute renal failure Is this a current diagnosis for this admission?: Yes Plan: Secondary to sepsis and dehydration. His creatinine is greatly improved. (7) DVT (deep venous thrombosis) Qualifiers: DVT location: lower extremity Chronicity: chronic Laterality: unspecified laterality Is this a current diagnosis for this admission?: Yes Plan: His anticoagulation has been stopped due to his nosebleed. I will talk to Dr. Shah tomorrow when to restart this. (8) Anemia Plan: He had a precipitous drop in his hemoglobin likely due to epistaxis. He was transfused 1 unit of packed red blood cells with the appropriate response to his hemoglobin. He has an anemia of chronic disease as well as acute blood loss anemia at this point. (9) Thrombocytopenia Plan: Stable. Likely related to his underlying malignancy (10) Hypokalemia Is this a current diagnosis for this admission?: Yes Plan: Repleted and resolved (11) Hypomagnesemia Is this a current diagnosis for this admission?: Yes Plan: Repleted and resolved (12) Epistaxis Is this a current diagnosis for this admission?: Yes Plan: He was seen by ENT yesterday who cauterized the area. No further nosebleeds. His anticoagulation is on hold. (13) Immunocompromised state Is this a current diagnosis for this admission?: Yes Plan: Secondary to multiple myeloma and treatment. (14) Hypertension Qualifiers: Hypertension type: unspecified Qualified Code(s): I10 - Essential (primary ) hypertension Is this a current diagnosis for this admission?: Yes Plan: Stable (15) Hyponatremia Plan: Resolved - Time Time Spent with patient: 25-34 minutes - Inpatient Certification Medical Necessity: Need for IV Antibiotics - Inpatient hospitalization remains necessary. This patient is immunosuppressed and requiring parenteral antibiotics for pneumonia. He has continued metabolic acidosis. He needs further treatment in the hospital for now.
[2017-02-25] MEDS: ACETAMINOPHEN 325 MG TABLET PO PRN (14:40)
--- NOTE | 2017-02-25 17:38 | PROGRESS NOTE E ---
Progress Note NAME: ANGIE LANGFORD : 1955 AGE: 61Y DATE: 02/25/2017 ROOM: 326 SUBJECTIVE: The patient was seen at the bedside. He looks better. He feels better. He has some headache. He remains afebrile. PLAN: The plan is for him to complete this hospitalization, hopefully with the resolution of his pneumonia. I will plan on seeing him as an outpatient following his discharge. His myeloma serologies will be checked at that time. I thank you for allowing me to be part of his care during this hospitalization. DICTATING PHYSICIAN: JAIMEE MURPHY M.D. [id number] DANIELLA#: [id number] ID: [id number] JOB#: [id number] ACCT: [id number] cc: >
[2017-02-25] MEDS: VANCOMYCIN HCL 750 MG in DEXTROSE 5%-WATER 250 ML IV SCH (18:10)
[2017-02-26] MEDS: ACETAMINOPHEN 325 MG TABLET PO PRN ×3 (00:48→19:35)
[2017-02-26] MEDS: ACYCLOVIR 200 MG CAPSULE PO SCH ×4 (00:49→18:05)
[2017-02-26] MEDS: LEVALBUTEROL HCL NEB 1.25 MG/3 ML AMPUL NEB SCH ×4 (02:08→20:22)
[2017-02-26] MEDS: VANCOMYCIN HCL 750 MG in DEXTROSE 5%-WATER 250 ML IV SCH ×3 (02:14→18:05)
[2017-02-26] MEDS: MEROPENEM 1 GM in NORMAL SALINE 50 ML IV SCH ×3 (02:21→16:41)
[2017-02-26] MEDS: LANSOPRAZOLE 15 MG TAB.RAP.DR PO SCH ×2 (05:15→16:41)
[2017-02-26 06:02] LABS: HEMATOCRIT 28.3 % (37.9-51.0); HEMOGLOBIN 9.7 g/dL (13.5-17.0); HGB HCT DIFFERENCE 0.8; MEAN CORPUSCULAR HEMOGLOBIN 31.2 pg (27.0-33.4); MEAN CORPUSCULAR HGB CONC 34.4 g/dL (32.0-36.0); MEAN CORPUSCULAR VOLUME 91 fl (80-97); RED BLOOD COUNT 3.12 10^6/uL (4.35-5.55); RED CELL DISTRIBUTION WIDTH 20.3 % (11.5-14.0)
[2017-02-26 06:10] LABS: ANION GAP 10 (5-19); BLOOD UREA NITROGEN 19 mg/dL (7-20); CALCIUM 7.5 mg/dL (8.4-10.2); CARBON DIOXIDE 18 mmol/L (22-30); CHLORIDE 115 mmol/L (98-107); CREATININE RESULT 0.95 mg/dL (0.52-1.25); GLUCOSE 88 mg/dL (75-110); MAGNESIUM 1.6 mg/dL (1.6-2.3); POTASSIUM 3.6 mmol/L (3.6-5.0); SODIUM 142.5 mmol/L (137-145)
[2017-02-26 08:01] LABS: ABSOLUTE EOSINOPHILS# (MANUAL) 0.2 10^3/uL (0.0-0.6); BAND NEUTROPHILS % (MANUAL) 1 % (3-5); BASOPHILS % (MANUAL) 0 % (0-2); EOSINOPHILS % (MANUAL) 2 % (0-6); LYMPHOCYTES % (MANUAL) 13 % (13-45); TOTAL CELLS COUNTED 100
[2017-02-26 08:03] LABS: ANISOCYTOSIS 2+; TOXIC GRANULATION 1+; TOXIC VACUOLATION PRESENT
[2017-02-26] MEDS: DULOXETINE HCL 30 MG CAPSULE.DR PO SCH ×2 (10:25→18:05)
[2017-02-26] MEDS: FOLIC ACID 1 MG TABLET PO SCH (10:25)
[2017-02-26] MEDS: MAGNESIUM OXIDE 400 MG TABLET PO SCH (10:25)
[2017-02-26] MEDS: GUAIFENESIN 600 MG TABLET.SA PO SCH ×2 (10:25→22:25)
[2017-02-26] MEDS: MULTIVITAMINS W-IRON TABLET, CHEWABLE PO SCH (10:26)
[2017-02-26] MEDS: THIAMINE HCL 100 MG TABLET PO SCH (10:26)
[2017-02-26] MEDS: METOPROLOL SUCCINATE 25 MG TAB.SR.24H PO SCH (10:26)
[2017-02-26] MEDS: BACITRACIN ZINC OINTMENT 15 GM TP SCH ×2 (10:33→22:26)
[2017-02-26] MEDS: OXYCODONE HCL IR 5 MG TABLET PO SCH ×2 (10:34→22:27)
--- NOTE | 2017-02-26 11:20 | RADIOLOGY REPORT (SQ) ---
EXAM DESCRIPTION: CHEST SINGLE VIEW COMPLETED DATE/TIME: 02/26/2017 11:10 am REASON FOR STUDY: cough, sob COMPARISON: 02/17/2017 CT 02/19/2017 EXAM PARAMETERS: NUMBER OF VIEWS: One view. TECHNIQUE: Single frontal radiographic view of the chest acquired. RADIATION DOSE: NA LIMITATIONS: None. FINDINGS: LUNGS AND PLEURA: There is ill-defined opacification in the left base. The dense consolid ation in the right lower lobe on the CT appears to have resolved. . MEDIASTINUM AND HILAR STRUCTURES: No masses. Contour normal. HEART AND VASCULAR STRUCTURES: Heart normal in size. Normal vasculature. BONES: No acute findings. HARDWARE: Injection port on right. OTHER: No other significant finding. IMPRESSION: Cannot exclude limited infiltrate in the left lower lobe. TECHNICAL DOCUMENTATION: JOB ID: [id number] [employer]- All Rights Reserved
[2017-02-26] MEDS ORDERED: RIVAROXABAN 10 MG TABLET PO ONE (11:45)
--- NOTE | 2017-02-26 12:23 | RADIOLOGY REPORT (SQ) ---
EXAM DESCRIPTION: CT HEAD WITHOUT COMPLETED DATE/TIME: 02/26/2017 12:14 pm REASON FOR STUDY: Severe headache, ? bleed, ? mets COMPARISON: None. TECHNIQUE: Axial images acquired through the brain without intravenous contrast. Images reviewed wi th bone, brain and subdural windows. Images stored on PACS. All CT scanners at this facility use dose modulation, iterative reconstruction, and/or weight based d osing when appropriate to reduce radiation dose to as low as reasonably achievable (ALARA). [facility]: Dose Right [facility]: CareDose [facility]: Dose Right [facility]: Teradose 4D [facility]: [employer] RADIATION DOSE: CT Rad equipment meets quality standard of care and radiation dose reduction techniq ues were employed. CTDIvol: 49.0 mGy. DLP: 881 mGy-cm. mGy. LIMITATIONS: None. FINDINGS: VENTRICLES: Normal size and contour. CEREBRUM: No masses. No hemorrhage. No midline shift. No evidence for acute infarction. Normal gra y/white matter differentiation. No areas of low density in the white matter. CEREBELLUM: No masses. No hemorrhage. No alteration of density. No evidence for acute infarction. EXTRAAXIAL SPACES: No fluid collections. No masses. ORBITS AND GLOBE: No intra- or extraconal masses. Normal contour of globe without masses. CALVARIUM: No fracture. PARANASAL SINUSES: Mucous membrane thickening in the maxillary and ethmoid sinuses. SOFT TISSUES: No mass or hematoma. OTHER: No other significant finding. IMPRESSION: NORMAL BRAIN CT WITHOUT CONTRAST. SINUS DISEASE. EVIDENCE OF ACUTE STROKE: NO. COMMENT: Quality ID # [id number]: Final reports with documentation of one or more dose reduction techniques (e.g., Automated exposure control, adjustment of the mA and/or kV according to patient size, use of iterative reconstruction technique) TECHNICAL DOCUMENTATION: JOB ID: [id number] [employer]- All Rights Reserved
[2017-02-26] MEDS ORDERED: BUTALB/ACETAMINOPHEN/CAFFEINE 1 TAB EACH PO PRN (12:35)
[2017-02-26] MEDS ORDERED: LEVALBUTEROL HCL NEB 1.25 MG/3 ML AMPUL NEB PRN (13:30)
[2017-02-26 15:34] LABS: ALANINE AMINOTRANSFERASE 31 U/L (21-72); ALBUMIN 2.6 g/dL (3.5-5.0); ALKALINE PHOSPHATASE 57 U/L (38-126); ASPARTATE AMINO TRANSFERASE 33 U/L (17-59); BILIRUBIN,DIRECT 0.5 mg/dL (0.0-0.4); BILIRUBIN,TOTAL 0.7 mg/dL (0.2-1.3); TOTAL PROTEIN 7.9 g/dL (6.3-8.2)
--- NOTE | 2017-02-26 18:12 | PDOC PROGRESS REPORT ---
Subjective Progress Note for:: 02/26/17 Subjective:: Today when I saw the patient he states that he is feeling much worse. He cannot really describe how he feels. He states that he is aching all over and he has developed the worst headache that he has ever had in his life. Otherwise he states his respiratory status is about the same. He states he is not acutely short of breath. He has no chest pain. He has no neck pain or neck stiffness. He has had no nausea, vomiting or diarrhea. No abdominal pain. No dysuria, frequency or hematuria. Reason For Visit: PNEUMONIA SEPSIS MM Physical Exam Vital Signs: Temp Pulse Resp BP Pulse Ox 98.3 F 86 18 140/74 H 100 02/26/17 11:27 02/26/17 13:56 02/26/17 11:27 02/26/17 11:27 02/26/17 11:27 Pulse Oximeter Continuous Start: 02/19/17 23: 43 Freq: RTQ4 Status: Complete Document 02/26/17 12:00 LDA (Rec: 02/26/17 12:30 LDA [email or web address]) Pulse Oximetry Assessment Equipment Usage Equipment Standby Continuous SpO2 Machine # 13 Intake & Output 02/25/17 02/26/17 02/27/17 06:59 06:59 06:59 Intake Total 4882 4315 Output Total 3075 1900 Balance 1807 2415 Weight 82.4 kg 80 kg General appearance: PRESENT: no acute distress, thin, other - He looks as if he feels quite poorly today. Head exam: PRESENT: atraumatic, normocephalic Eye exam: PRESENT: conjunctiva pink, EOMI, PERRLA. ABSENT: scleral icterus Ear exam: PRESENT: normal external ear exam Mouth exam: PRESENT: moist, tongue midline Neck exam: ABSENT: meningismus, tenderness Respiratory exam: PRESENT: rhonchi. ABSENT: rales, wheezes Cardiovascular exam: PRESENT: RRR. ABSENT: diastolic murmur, rubs, systolic murmur GI/Abdominal exam: PRESENT: normal bowel sounds, soft. ABSENT: distended, guarding, mass, organolmegaly, rebound, tenderness Extremities exam: PRESENT: full ROM. ABSENT: calf tenderness, clubbing, pedal edema Neurological exam: PRESENT: alert, awake, oriented to person, oriented to place , oriented to time, oriented to situation, CN II-XII grossly intact. ABSENT: motor sensory deficit Psychiatric exam: PRESENT: appropriate affect, normal mood. ABSENT: homicidal ideation, suicidal ideation Skin exam: PRESENT: dry, intact, warm. ABSENT: cyanosis, rash Results Laboratory Results: 02/26/17 05:26 02/26/17 05:26 02/26/17 02/26/17 02/26/17 05:26 05:26 05:26 WBC 11.0 H RBC 3.12 L Hgb 9.7 L Hct 28.3 L MCV 91 MCH 31.2 MCHC 34.4 RDW 20.3 H Plt Count 56 L Seg Neutrophils % Not Reportable Lymphocytes % Not Reportable Monocytes % Not Reportable Eosinophils % Not Reportable Basophils % Not Reportable Absolute Neutrophils Not Reportable Absolute Lymphocytes Not Reportable Absolute Monocytes Not Reportable Absolute Eosinophils Not Reportable Absolute Basophils Not Reportable Sodium 142.5 Potassium 3.6 Chloride 115 H Carbon Dioxide 18 L Anion Gap 10 BUN 19 Creatinine 0.95 Est GFR ( Amer) > 60 Est GFR (Non-Af Amer) > 60 Glucose 88 Calcium 7.5 L Magnesium 1.6 Total Bilirubin 0.7 AST 33 ALT 31 Alkaline Phosphatase 57 Total Protein 7.9 Albumin 2.6 L 02/24/17 05:35 NT-Pro-B Natriuret Pep 4350 H Impressions: Chest/Abdomen CTA 02/19/17 20:41 IMPRESSION: Dense consolidation in the posterior segments of the right lower lobe. Additional patchy areas of consolidation are present in the parahilar regions of both upper lobes and in the left lower lobe. No emboli visualized in the main pulmonary arteries. Breathing motion artifact limits evaluation of the segmental branches. Abdomen/Pelvis CT 02/24/17 17:50 IMPRESSION: No significant interval change. NO SIGNIFICANT OR ACUTE FINDING IN THE ABDOMEN OR PELVIS ON CT SCAN WITH IV CONTRAST. Other findings as noted above Chest X-Ray 02/26/17 00:00 IMPRESSION: Cannot exclude limited infiltrate in the left lower lobe. Head CT 02/26/17 00:00 IMPRESSION: NORMAL BRAIN CT WITHOUT CONTRAST. SINUS DISEASE. EVIDENCE OF ACUTE STROKE: NO. Assessment & Plan - Diagnosis (1) Acute hypoxemic respiratory failure Is this a current diagnosis for this admission?: Yes Plan: Secondary to sepsis and pneumonia. Improving. Unfortunately the patient is still requiring oxygen supplementation. We will try to wean him off of this as the day goes on. (2) Sepsis Qualifiers: Sepsis type: sepsis due to unspecified organism Qualified Code(s): A41.9 - Sepsis, unspecified organism Is this a current diagnosis for this admission?: Yes Plan: Present on admission secondary to underlying pneumonia. Resolving. The patient overall from a sepsis standpoint appears to be improving although he continues to feel quite poorly. (3) Pneumonia Qualifiers: Pneumonia type: due to unspecified organism Laterality: bilateral Lung location: upper lobe of lung Qualified Code(s): J18.9 - Pneumonia, unspecified organism Is this a current diagnosis for this admission?: Yes Plan: the patient currently is on broad-spectrum IV antibiotics for his underlying pneumonia. He is on vancomycin and meropenem day #2. He has received he has completed a course of therapy with Levaquin. (4) Severe headache Plan: The patient states he has the worst headache he has ever had in his life. He had a CT scan of the head which was unremarkable. I spoke to Dr. Shah who was concerned about his headache. A serum viscosity and serum protein electrophoresis has been ordered. She recommended transfer to [facility] as she was concerned that he may require plasmapheresis. I did speak to Dr. Cifuentes who is an oncologist at [facility]. He did not want to accept the patient until he spoke to Dr. Shah. I am currently trying to get in touch with her so that she can get in touch with the transfer center. I did repeat a liver panel. The patient's serum protein is 7.9. He does not have any meningeal signs on exam. He did receive 1 oxycodone today and his headache was improved when I went back to tell him the update from [facility]. (5) Metabolic acidosis Plan: Minimally improved today but going in the right direction. Currently his level is 18. Hopefully continuing to treat his pneumonia will help his overall situation. (6) Multiple myeloma Plan: He follows with Dr. Shah. Currently not undergoing treatment due to all of his multiple medical issues. (7) Acute renal failure Is this a current diagnosis for this admission?: Yes Plan: Secondary to sepsis and dehydration. His creatinine is greatly improved. (8) DVT (deep venous thrombosis) Qualifiers: DVT location: lower extremity Chronicity: chronic Laterality: unspecified laterality Is this a current diagnosis for this admission?: Yes Plan: Apparently he has not been on anticoagulation. I did discuss DVT prophylaxis with Dr. Shah on the phone today. She recommended Lovenox. She is aware that his platelet levels are low and she just wanted me to check a CBC in the morning. He has been placed on a prophylactic dose of Lovenox. (9) Anemia Plan: He had a precipitous drop in his hemoglobin likely due to epistaxis. He was transfused 1 unit of packed red blood cells with the appropriate response to his hemoglobin. He has an anemia of chronic disease as well as acute blood loss anemia at this point. (10) Thrombocytopenia Plan: His level has worsened somewhat since coming into the hospital. Likely related to his underlying malignancy. We will have to watch this quite closely as he will be given prophylactic Lovenox tonight. (11) Hypokalemia Is this a current diagnosis for this admission?: Yes Plan: Repleted and resolved (12) Hypomagnesemia Is this a current diagnosis for this admission?: Yes Plan: Repleted and resolved (13) Epistaxis Is this a current diagnosis for this admission?: Yes (14) Immunocompromised state Is this a current diagnosis for this admission?: Yes (15) Hypertension Qualifiers: Hypertension type: unspecified Qualified Code(s): I10 - Essential (primary ) hypertension Is this a current diagnosis for this admission?: Yes (16) Hyponatremia Plan: Resolved - Time Time Spent with patient: 25-34 minutes - Inpatient Certification Based on my medical assessment, after consideration of the patient's comorbidities, presenting symptoms, or acuity I expect that the services needed warrant INPATIENT care.: Yes I certify that my determination is in accordance with my understanding of Medicare's requirements for reasonable and necessary INPATIENT services [42 CFR 412.3e].: Yes Medical Necessity: Need for IV Antibiotics, Other - Inpatient hospitalization remains necessary. The patient is immunocompromised with pneumonia and acute respiratory failure. He is requiring parenteral therapies. Timing of disposition will be determined by his clinical course.
[2017-02-27] MEDS: ACYCLOVIR 200 MG CAPSULE PO SCH (00:49)
[2017-02-27] MEDS: LEVALBUTEROL HCL NEB 1.25 MG/3 ML AMPUL NEB SCH ×4 (01:59→20:33)
[2017-02-27] MEDS: MEROPENEM 1 GM in NORMAL SALINE 50 ML IV SCH ×3 (02:11→18:26)
[2017-02-27] MEDS: VANCOMYCIN HCL 750 MG in DEXTROSE 5%-WATER 250 ML IV SCH ×3 (02:11→18:25)
[2017-02-27] MEDS: LANSOPRAZOLE 15 MG TAB.RAP.DR PO SCH ×2 (04:54→18:27)
[2017-02-27] MEDS: ACETAMINOPHEN 325 MG TABLET PO PRN ×2 (04:58→21:36)
[2017-02-27 05:47] LABS: HEMATOCRIT 28.5 % (37.9-51.0); HEMOGLOBIN 9.8 g/dL (13.5-17.0); HGB HCT DIFFERENCE 0.9; MEAN CORPUSCULAR HEMOGLOBIN 31.2 pg (27.0-33.4); MEAN CORPUSCULAR HGB CONC 34.3 g/dL (32.0-36.0); MEAN CORPUSCULAR VOLUME 91 fl (80-97); RED BLOOD COUNT 3.14 10^6/uL (4.35-5.55); RED CELL DISTRIBUTION WIDTH 19.8 % (11.5-14.0)
[2017-02-27 06:04] LABS: ANION GAP 7 (5-19); BLOOD UREA NITROGEN 13 mg/dL (7-20); CALCIUM 7.7 mg/dL (8.4-10.2); CARBON DIOXIDE 22 mmol/L (22-30); CHLORIDE 111 mmol/L (98-107); CREATININE RESULT 0.81 mg/dL (0.52-1.25); GLUCOSE 77 mg/dL (75-110); MAGNESIUM 1.5 mg/dL (1.6-2.3); POTASSIUM 3.7 mmol/L (3.6-5.0); SODIUM 139.8 mmol/L (137-145)
[2017-02-27] MEDS: MULTIVITAMINS W-IRON TABLET, CHEWABLE PO SCH (09:15)
[2017-02-27] MEDS: OXYCODONE HCL IR 5 MG TABLET PO SCH ×2 (09:15→21:30)
[2017-02-27] MEDS: METOPROLOL SUCCINATE 25 MG TAB.SR.24H PO SCH (09:16)
[2017-02-27] MEDS: MAGNESIUM OXIDE 400 MG TABLET PO SCH (09:16)
[2017-02-27] MEDS: DULOXETINE HCL 30 MG CAPSULE.DR PO SCH ×2 (09:17→18:26)
[2017-02-27] MEDS: THIAMINE HCL 100 MG TABLET PO SCH (09:17)
[2017-02-27] MEDS: BACITRACIN ZINC OINTMENT 15 GM TP SCH ×2 (09:17→21:33)
[2017-02-27] MEDS: GUAIFENESIN 600 MG TABLET.SA PO SCH ×2 (09:17→21:30)
[2017-02-27] MEDS: FOLIC ACID 1 MG TABLET PO SCH (09:17)
[2017-02-27] MEDS: ENOXAPARIN SODIUM INJ 40 MG/0.4 ML DISP.SYRIN SUBCUT SCH (09:24)
[2017-02-27] MEDS ORDERED: RIVAROXABAN 10 MG TABLET PO SCH (10:00)
--- NOTE | 2017-02-27 19:47 | PDOC PROGRESS REPORT ---
Subjective Progress Note for:: 02/27/17 Subjective:: The patient is a pleasant 61-year-old -[place] male with underlying multiple myeloma. He follows with Dr. Shah as an outpatient. Currently he has not been undergoing any treatment for his myeloma as he had a colon resection about a month ago. The patient presented to the hospital with shortness of breath and was found to have evidence of underlying pneumonia. He has been receiving broad-spectrum IV antibiotics and is slowly improving. Yesterday he developed a severe headache. Initially Dr. Shah was concerned that he may require transfer due to developing possible hyperviscosity syndrome. However serum protein is normal. I did speak to [facility] and they did not feel that urgent transfer was necessary. Today when I saw the patient has headache is much improved. It is still present. He states that he has some body aches but overall is feeling better. He continues to require oxygen and is somewhat weak and short of breath when he stands up. He does not really have a cough. No nausea or vomiting. He does not have a good appetite and has not been eating well. He was initially having diarrhea but this is since stopped. He did test negative for Clostridium difficile infection. He is having no voiding complaints. Reason For Visit: PNEUMONIA SEPSIS MM Physical Exam Vital Signs: Temp Pulse Resp BP Pulse Ox 98.3 F 96 20 104/64 99 02/27/17 16:00 02/27/17 16:00 02/27/17 16:00 02/27/17 16:00 02/27/17 16:00 Pulse Oximeter Continuous Start: 02/19/17 23: 43 Freq: RTQ4 Status: Complete Document 02/26/17 12:00 [facility] (Rec: 02/26/17 12:30 [facility] [email or web address]) Pulse Oximetry Assessment Equipment Usage Equipment Standby Continuous SpO2 Machine # 13 Intake & Output 02/26/17 02/27/17 02/28/17 06:59 06:59 06:59 Intake Total 4315 3069 1835 Output Total 1900 2400 925 Balance 0805 069 910 Weight 80 kg 83 kg General appearance: PRESENT: other - The patient looks as if he does not feel well. He is receiving oxygen via nasal cannula Head exam: PRESENT: atraumatic, normocephalic Eye exam: PRESENT: conjunctiva pink, EOMI, PERRLA. ABSENT: scleral icterus Mouth exam: PRESENT: moist, tongue midline Respiratory exam: PRESENT: rhonchi Cardiovascular exam: PRESENT: RRR. ABSENT: diastolic murmur, rubs, systolic murmur GI/Abdominal exam: PRESENT: normal bowel sounds, soft. ABSENT: distended, guarding, mass, organolmegaly, rebound, tenderness Rectal exam: PRESENT: deferred Extremities exam: PRESENT: full ROM. ABSENT: calf tenderness, clubbing, pedal edema Neurological exam: PRESENT: alert, awake, oriented to person, oriented to place , oriented to time, oriented to situation, CN II-XII grossly intact. ABSENT: motor sensory deficit Psychiatric exam: PRESENT: appropriate affect, normal mood. ABSENT: homicidal ideation, suicidal ideation Skin exam: PRESENT: dry, intact, warm. ABSENT: cyanosis, rash Results Laboratory Results: 02/27/17 05:18 02/27/17 05:18 02/27/17 02/27/17 05:18 05:18 WBC 15.0 H RBC 3.14 L Hgb 9.8 L Hct 28.5 L MCV 91 MCH 31.2 MCHC 34.3 RDW 19.8 H Plt Count 67 L Sodium 139.8 Potassium 3.7 Chloride 111 H Carbon Dioxide 22 Anion Gap 7 BUN 13 Creatinine 0.81 Est GFR ( Amer) > 60 Est GFR (Non-Af Amer) > 60 Glucose 77 Calcium 7.7 L Magnesium 1.5 L 02/24/17 05:35 NT-Pro-B Natriuret Pep 4350 H Impressions: Chest/Abdomen CTA 02/19/17 20:41 IMPRESSION: Dense consolidation in the posterior segments of the right lower lobe. Additional patchy areas of consolidation are present in the parahilar regions of both upper lobes and in the left lower lobe. No emboli visualized in the main pulmonary arteries. Breathing motion artifact limits evaluation of the segmental branches. Abdomen/Pelvis CT 02/24/17 17:50 IMPRESSION: No significant interval change. NO SIGNIFICANT OR ACUTE FINDING IN THE ABDOMEN OR PELVIS ON CT SCAN WITH IV CONTRAST. Other findings as noted above Chest X-Ray 02/26/17 00:00 IMPRESSION: Cannot exclude limited infiltrate in the left lower lobe. Head CT 02/26/17 00:00 IMPRESSION: NORMAL BRAIN CT WITHOUT CONTRAST. SINUS DISEASE. EVIDENCE OF ACUTE STROKE: NO. Assessment & Plan - Diagnosis (1) Acute hypoxemic respiratory failure Is this a current diagnosis for this admission?: Yes Plan: Secondary to sepsis and pneumonia. Improving. Unfortunately the patient is still requiring oxygen supplementation. We will try to wean him off of this as the day goes on. (2) Sepsis Qualifiers: Sepsis type: sepsis due to unspecified organism Qualified Code(s): A41.9 - Sepsis, unspecified organism Is this a current diagnosis for this admission?: Yes Plan: Present on admission secondary to underlying pneumonia. Resolving. The patient overall from a sepsis standpoint appears to be improving although he continues to feel quite poorly. (3) Pneumonia Qualifiers: Pneumonia type: due to unspecified organism Laterality: bilateral Lung location: upper lobe of lung Qualified Code(s): J18.9 - Pneumonia, unspecified organism Is this a current diagnosis for this admission?: Yes Plan: The patient currently is on broad-spectrum IV antibiotics for his underlying pneumonia. His antibiotic therapy had been narrowed to Levaquin however due to the fact that he developed worsening metabolic acidosis and worsening leukocytosis he was started on IV vancomycin and meropenem. This is day #3. He has completed a course of therapy with Levaquin. (4) Severe headache Plan: The patient states he has the worst headache he has ever had in his life. He had a CT scan of the head which was unremarkable. I spoke to Dr. Shah who was concerned about his headache. A serum viscosity and serum protein electrophoresis has been ordered. She recommended transfer to [facility] as she was concerned that he may require plasmapheresis. I did speak to Dr. Cifuentes who is an oncologist at [facility]. He did not want to accept the patient until he spoke to Dr. Shah. I was unable to contact Dr. Shah but have left a message. Ultimately I spoke back to [facility] and due to the patient's serum protein level being 7.9 the decision was made to not transfer. (5) Metabolic acidosis Plan: Minimally improved today but going in the right direction. Currently his level is 18. Hopefully continuing to treat his pneumonia will help his overall situation. (6) Multiple myeloma Plan: He follows with Dr. Shah. Currently not undergoing treatment due to all of his multiple medical issues. (7) Acute renal failure Is this a current diagnosis for this admission?: Yes Plan: Secondary to sepsis and dehydration. His creatinine is greatly improved. (8) DVT (deep venous thrombosis) Qualifiers: DVT location: lower extremity Chronicity: chronic Laterality: unspecified laterality Is this a current diagnosis for this admission?: Yes Plan: Apparently he has not been on anticoagulation. I did discuss DVT prophylaxis with Dr. Shah on the phone yesterday. She recommended Lovenox. She is aware that his platelet levels are low and she just wanted me to check a CBC in the morning. His platelet level was stable today. (9) Anemia Plan: He had a precipitous drop in his hemoglobin likely due to epistaxis. He was transfused 1 unit of packed red blood cells with the appropriate response to his hemoglobin. He has an anemia of chronic disease as well as acute blood loss anemia at this point. (10) Thrombocytopenia Plan: His level has worsened somewhat since coming into the hospital. Likely related to his underlying malignancy as well as sepsis and infection. We will have to watch this quite closely as he is on prophylactic Lovenox for DVT prophylaxis at this point. (11) Hypokalemia Is this a current diagnosis for this admission?: Yes Plan: Repleted and resolved (12) Hypomagnesemia Is this a current diagnosis for this admission?: Yes (13) Epistaxis Is this a current diagnosis for this admission?: Yes Plan: He was seen by ENT yesterday who cauterized the area. No further nosebleeds. He does not tolerate full dose anticoagulation. He does have a DVT. At the advice of Dr. Shah he has been started on prophylactic Lovenox. He has had no further nosebleeds. (14) Immunocompromised state Is this a current diagnosis for this admission?: Yes Plan: Secondary to multiple myeloma and treatment. (15) Hypertension Qualifiers: Hypertension type: unspecified Qualified Code(s): I10 - Essential (primary ) hypertension Is this a current diagnosis for this admission?: Yes (16) Hyponatremia Plan: Resolved - Time Time Spent with patient: 25-34 minutes - Inpatient Certification Medical Necessity: Need Close Monitoring Due to Risk of Patient Decompensation, Need for IV Antibiotics - Inpatient hospitalization, Other - Inpatient hospitalization remains necessary. The patient still remains hypoxic. He is on broad-spectrum antibiotics. He is immunocompromised and very slow to improve. Timing of disposition will be determined by his clinical course.
[2017-02-28] MEDS: VANCOMYCIN HCL 750 MG in DEXTROSE 5%-WATER 250 ML IV SCH ×3 (01:39→17:52)
[2017-02-28] MEDS: LEVALBUTEROL HCL NEB 1.25 MG/3 ML AMPUL NEB SCH ×4 (02:03→20:51)
[2017-02-28] MEDS: LANSOPRAZOLE 15 MG TAB.RAP.DR PO SCH ×2 (05:43→17:51)
[2017-02-28] MEDS: MEROPENEM 1 GM in NORMAL SALINE 50 ML IV SCH ×3 (05:44→17:53)
[2017-02-28 05:54] LABS: HEMOGLOBIN 9.7 g/dL (13.5-17.0); HGB HCT DIFFERENCE 1.1; MEAN CORPUSCULAR HEMOGLOBIN 31.7 pg (27.0-33.4); MEAN CORPUSCULAR HGB CONC 34.5 g/dL (32.0-36.0); MEAN CORPUSCULAR VOLUME 92 fl (80-97); RED BLOOD COUNT 3.05 10^6/uL (4.35-5.55); RED CELL DISTRIBUTION WIDTH 19.9 % (11.5-14.0); WHITE BLOOD COUNT 12.7 10^3/uL (4.0-10.5)
[2017-02-28 06:10] LABS: ANION GAP 9 (5-19); BLOOD UREA NITROGEN 12 mg/dL (7-20); CALCIUM 7.8 mg/dL (8.4-10.2); CARBON DIOXIDE 21 mmol/L (22-30); CHLORIDE 110 mmol/L (98-107); CREATININE RESULT 0.98 mg/dL (0.52-1.25); GLUCOSE 110 mg/dL (75-110); MAGNESIUM 1.6 mg/dL (1.6-2.3); POTASSIUM 3.5 mmol/L (3.6-5.0); SODIUM 139.9 mmol/L (137-145)
[2017-02-28 06:57] LABS: BAND NEUTROPHILS % (MANUAL) 8 % (3-5); BASOPHILS % (MANUAL) 0 % (0-2); EOSINOPHILS % (MANUAL) 0 % (0-6); LYMPHOCYTES % (MANUAL) 8 % (13-45); TOTAL CELLS COUNTED 100
[2017-02-28 07:00] LABS: ANISOCYTOSIS 2+; OVALOCYTES SLIGHT; POIKILOCYTOSIS 1+; TEAR DROP CELLS SLIGHT; TOXIC GRANULATION 1+
[2017-02-28] MEDS ORDERED: POTASSIUM CHLORIDE 10 MEQ TABLET.SA PO ONE (07:44)
[2017-02-28] MEDS: DULOXETINE HCL 30 MG CAPSULE.DR PO SCH ×2 (09:05→17:51)
[2017-02-28] MEDS: FOLIC ACID 1 MG TABLET PO SCH (09:05)
[2017-02-28] MEDS: METOPROLOL SUCCINATE 25 MG TAB.SR.24H PO SCH (09:05)
[2017-02-28] MEDS: GUAIFENESIN 600 MG TABLET.SA PO SCH ×2 (09:06→21:21)
[2017-02-28] MEDS: MAGNESIUM OXIDE 400 MG TABLET PO SCH (09:06)
[2017-02-28] MEDS: THIAMINE HCL 100 MG TABLET PO SCH (09:06)
[2017-02-28] MEDS: MULTIVITAMINS W-IRON TABLET, CHEWABLE PO SCH (09:07)
[2017-02-28] MEDS: BACITRACIN ZINC OINTMENT 15 GM TP SCH ×2 (09:11→21:21)
[2017-02-28] MEDS: ENOXAPARIN SODIUM INJ 40 MG/0.4 ML DISP.SYRIN SUBCUT SCH (09:11)
[2017-02-28] MEDS: MAGNESIUM SULFATE/D5W 1 GM/100 ML RTUPB IV SCH ×2 (09:11→10:57)
--- NOTE | 2017-02-28 12:24 | PDOC PROGRESS REPORT ---
Subjective Progress Note for:: 02/28/17 Subjective:: The patient is a 61-year-old male who has underlying multiple myeloma. The patient is currently admitted for pneumonia. He developed a severe headache 2 days ago. There was concern for hyperviscosity syndrome. However, the patient' s total protein was not elevated. Today, he reports that his headache is completely resolved. He also reports that he is eating better. His diarrhea has stopped. He feels that his strength is slowly improving. Reason For Visit: PNEUMONIA SEPSIS MM Physical Exam Vital Signs: Temp Pulse Resp BP Pulse Ox 97.7 F 94 20 118/64 99 02/28/17 08:40 02/28/17 08:40 02/28/17 08:40 02/28/17 08:40 02/28/17 08:40 Pulse Oximeter Continuous Start: 02/19/17 23: 43 Freq: RTQ4 Status: Complete Document 02/26/17 12:00 LDA (Rec: 02/26/17 12:30 LDA [email or web address]) Pulse Oximetry Assessment Equipment Usage Equipment Standby Continuous SpO2 Machine # 13 Intake & Output 02/27/17 02/28/17 03/01/17 06:59 06:59 06:59 Intake Total 3069 2535 Output Total 2400 1475 Balance 669 1060 Weight 83 kg 81.7 kg Additional comments: The patient is a middle-aged black male. He appears to be his stated age. He appears to be in overall fairly good health. His cognition and mentation are completely normal. He is wearing oxygen at approximately 3 L/min. He does not appear to be tachypneic and he is speaking in full sentences. His facial appearance is normal. His lungs demonstrate bibasilar crackles one quarter of the way up posteriorly. His cardiac exam is regular. I do not appreciate any murmurs, gallops or rubs. The abdomen is soft and flat. Bowel sounds are present. The lower extremities do not demonstrate any pitting edema. The skin is warm, dry and intact. I do not appreciate any rashes in the visible skin areas. Results Laboratory Results: 02/28/17 05:00 02/28/17 05:00 02/28/17 02/28/17 05:00 05:00 WBC 12.7 H RBC 3.05 L Hgb 9.7 L Hct 28.0 L MCV 92 MCH 31.7 MCHC 34.5 RDW 19.9 H Plt Count 69 L Seg Neutrophils % Not Reportable Lymphocytes % Not Reportable Monocytes % Not Reportable Eosinophils % Not Reportable Basophils % Not Reportable Absolute Neutrophils Not Reportable Absolute Lymphocytes Not Reportable Absolute Monocytes Not Reportable Absolute Eosinophils Not Reportable Absolute Basophils Not Reportable Sodium 139.9 Potassium 3.5 L Chloride 110 H Carbon Dioxide 21 L Anion Gap 9 BUN 12 Creatinine 0.98 Est GFR ( Amer) > 60 Est GFR (Non-Af Amer) > 60 Glucose 110 Calcium 7.8 L Magnesium 1.6 02/24/17 05:35 NT-Pro-B Natriuret Pep 4350 H Impressions: Chest/Abdomen CTA 02/19/17 20:41 IMPRESSION: Dense consolidation in the posterior segments of the right lower lobe. Additional patchy areas of consolidation are present in the parahilar regions of both upper lobes and in the left lower lobe. No emboli visualized in the main pulmonary arteries. Breathing motion artifact limits evaluation of the segmental branches. Abdomen/Pelvis CT 02/24/17 17:50 IMPRESSION: No significant interval change. NO SIGNIFICANT OR ACUTE FINDING IN THE ABDOMEN OR PELVIS ON CT SCAN WITH IV CONTRAST. Other findings as noted above Chest X-Ray 02/26/17 00:00 IMPRESSION: Cannot exclude limited infiltrate in the left lower lobe. Head CT 02/26/17 00:00 IMPRESSION: NORMAL BRAIN CT WITHOUT CONTRAST. SINUS DISEASE. EVIDENCE OF ACUTE STROKE: NO. Assessment & Plan - Diagnosis (1) Acute hypoxemic respiratory failure Is this a current diagnosis for this admission?: Yes Plan: Clinically, the patient appears to be improving. We will wean his oxygen as tolerated. (2) Acute renal failure Is this a current diagnosis for this admission?: Yes Plan: Stable. (3) Anemia Qualifiers: Anemia type: unspecified type Qualified Code(s): D64.9 - Anemia, unspecified Is this a current diagnosis for this admission?: Yes Plan: Stable. (4) Epistaxis Is this a current diagnosis for this admission?: Yes Plan: Status post 2 units packed red blood cells (5) Multiple myeloma Qualifiers: Multiple myeloma remission status: not in remission Qualified Code(s): C90.00 - Multiple myeloma not having achieved remission Is this a current diagnosis for this admission?: Yes (6) Pneumonia Qualifiers: Pneumonia type: due to unspecified organism Laterality: bilateral Lung location: upper lobe of lung Qualified Code(s): J18.9 - Pneumonia, unspecified organism Is this a current diagnosis for this admission?: Yes (7) Sepsis Qualifiers: Sepsis type: sepsis due to unspecified organism Qualified Code(s): A41.9 - Sepsis, unspecified organism Is this a current diagnosis for this admission?: Yes Plan: Based on leukocytosis and tachycardia in the setting of pneumonia. (8) Severe headache Is this a current diagnosis for this admission?: Yes Plan: Resolved. Etiology unclear. CT was unremarkable. Perhaps, this was related to a metabolic disturbance such as hypoxia or hypercarbia? (9) Thrombocytopenia Is this a current diagnosis for this admission?: Yes Plan: Will monitor, ANDRIY since the patient has had epistaxis and has been placed on Lovenox for DVT prophylaxis. (10) Immunocompromised state Is this a current diagnosis for this admission?: Yes - Time Time Spent with patient: 25-34 minutes - Inpatient Certification Medical Necessity: Need Close Monitoring Due to Risk of Patient Decompensation, Need for IV Antibiotics, Risk of Complication if Not Cared For in Hospital
[2017-02-28] MEDS: OXYCODONE HCL IR 5 MG TABLET PO SCH ×2 (13:15→21:22)
[2017-02-28] MEDS: ACETAMINOPHEN 325 MG TABLET PO PRN (21:21)
[2017-03-01] MEDS: LEVALBUTEROL HCL NEB 1.25 MG/3 ML AMPUL NEB SCH ×4 (01:52→19:46)
[2017-03-01] MEDS: VANCOMYCIN HCL 750 MG in DEXTROSE 5%-WATER 250 ML IV SCH ×3 (02:00→17:06)
[2017-03-01] MEDS: MEROPENEM 1 GM in NORMAL SALINE 50 ML IV SCH ×3 (02:01→17:06)
[2017-03-01] MEDS: LANSOPRAZOLE 15 MG TAB.RAP.DR PO SCH ×2 (06:26→17:05)
[2017-03-01 06:49] LABS: HEMATOCRIT 26.9 % (37.9-51.0); HEMOGLOBIN 9.4 g/dL (13.5-17.0); HGB HCT DIFFERENCE 1.3; MEAN CORPUSCULAR HEMOGLOBIN 31.7 pg (27.0-33.4); MEAN CORPUSCULAR HGB CONC 34.9 g/dL (32.0-36.0); MEAN CORPUSCULAR VOLUME 91 fl (80-97); RED BLOOD COUNT 2.96 10^6/uL (4.35-5.55); RED CELL DISTRIBUTION WIDTH 19.6 % (11.5-14.0); WHITE BLOOD COUNT 10.2 10^3/uL (4.0-10.5)
[2017-03-01 07:05] LABS: ALANINE AMINOTRANSFERASE 33 U/L (21-72); ALBUMIN 2.5 g/dL (3.5-5.0); ALKALINE PHOSPHATASE 62 U/L (38-126); ANION GAP 9 (5-19); ASPARTATE AMINO TRANSFERASE 26 U/L (17-59); BILIRUBIN,DIRECT 0.4 mg/dL (0.0-0.4); BILIRUBIN,TOTAL 0.6 mg/dL (0.2-1.3); BLOOD UREA NITROGEN 9 mg/dL (7-20); CALCIUM 8.6 mg/dL (8.4-10.2); CARBON DIOXIDE 18 mmol/L (22-30); CHLORIDE 112 mmol/L (98-107); CREATININE RESULT 0.92 mg/dL (0.52-1.25); GLUCOSE 91 mg/dL (75-110); MAGNESIUM 1.9 mg/dL (1.6-2.3); POTASSIUM 3.8 mmol/L (3.6-5.0); SODIUM 139.1 mmol/L (137-145); TOTAL PROTEIN 7.8 g/dL (6.3-8.2)
[2017-03-01 07:15] LABS: BAND NEUTROPHILS % (MANUAL) 9 % (3-5); BASOPHILS % (MANUAL) 0 % (0-2); EOSINOPHILS % (MANUAL) 0 % (0-6); LYMPHOCYTES % (MANUAL) 12 % (13-45); TOTAL CELLS COUNTED 100
[2017-03-01 07:17] LABS: ANISOCYTOSIS 2+; POIKILOCYTOSIS 1+; POLYCHROMASIA SLIGHT; TOXIC GRANULATION 1+
[2017-03-01 07:18] LABS: SCHISTOCYTES 1+
[2017-03-01] MEDS: GUAIFENESIN 600 MG TABLET.SA PO SCH ×2 (09:46→23:01)
[2017-03-01] MEDS: THIAMINE HCL 100 MG TABLET PO SCH (09:47)
[2017-03-01] MEDS: MAGNESIUM OXIDE 400 MG TABLET PO SCH (09:47)
[2017-03-01] MEDS: MULTIVITAMINS W-IRON TABLET, CHEWABLE PO SCH (09:47)
[2017-03-01] MEDS: DULOXETINE HCL 30 MG CAPSULE.DR PO SCH ×2 (09:47→17:05)
[2017-03-01] MEDS: FOLIC ACID 1 MG TABLET PO SCH (09:47)
[2017-03-01] MEDS: METOPROLOL SUCCINATE 25 MG TAB.SR.24H PO SCH (09:48)
[2017-03-01] MEDS: BACITRACIN ZINC OINTMENT 15 GM TP SCH ×2 (09:49→23:02)
[2017-03-01] MEDS: ENOXAPARIN SODIUM INJ 40 MG/0.4 ML DISP.SYRIN SUBCUT SCH (09:50)
--- NOTE | 2017-03-01 11:35 | PDOC PROGRESS REPORT ---
Subjective Progress Note for:: 03/01/17 Subjective:: The patient is a 61-year-old male who has underlying multiple myeloma. The patient is currently admitted for pneumonia. He developed a severe headache 3 days ago. There was concern for hyperviscosity syndrome. However, the patient' s total protein was not elevated. Yesterday, he reported that his headache was completely resolved. The patient's diarrhea is completely resolved. He is eating better. He feels that his strength is also improving. Reason For Visit: PNEUMONIA SEPSIS MM Physical Exam Vital Signs: Temp Pulse Resp BP Pulse Ox 99.1 F 87 20 107/60 99 03/01/17 08:32 03/01/17 08:32 03/01/17 08:32 03/01/17 08:32 03/01/17 08:32 Pulse Oximeter Continuous Start: 02/19/17 23: 43 Freq: RTQ4 Status: Complete Document 02/26/17 12:00 LDA (Rec: 02/26/17 12:30 LDA [email or web address]) Pulse Oximetry Assessment Equipment Usage Equipment Standby Continuous SpO2 Machine # 13 Intake & Output 02/28/17 03/01/17 03/02/17 06:59 06:59 06:59 Intake Total 2535 2473 Output Total 1475 200 Balance 1060 2273 Weight 81.7 kg 81 kg Additional comments: The patient was sitting up in bed reading the paper. He does not appear to be in any distress and he is nontoxic in appearance. The patient's lungs demonstrate bibasilar crackles but are otherwise clear. The crackles are only posteriorly. Patient's cardiac exam is regular without murmurs, gallops or rubs. The abdomen is soft and flat. Bowel sounds are noted in all 4 quadrants. The patient has no guarding or rebound noted. The lower extremities are unremarkable. No edema is present. The skin is warm, dry and intact without lesions or rashes. Results Laboratory Results: 03/01/17 06:03 03/01/17 06:03 03/01/17 03/01/17 03/01/17 04:15 04:15 06:03 WBC Cancelled 10.2 RBC Cancelled 2.96 L Hgb Cancelled 9.4 L Hct Cancelled 26.9 L MCV Cancelled 91 MCH Cancelled 31.7 MCHC Cancelled 34.9 RDW Cancelled 19.6 H Plt Count Cancelled 68 L Seg Neutrophils % Cancelled Not Reportable Lymphocytes % Cancelled Not Reportable Monocytes % Cancelled Not Reportable Eosinophils % Cancelled Not Reportable Basophils % Cancelled Not Reportable Absolute Neutrophils Cancelled Not Reportable Absolute Lymphocytes Cancelled Not Reportable Absolute Monocytes Cancelled Not Reportable Absolute Eosinophils Cancelled Not Reportable Absolute Basophils Cancelled Not Reportable Sodium Cancelled Potassium Cancelled Chloride Cancelled Carbon Dioxide Cancelled Anion Gap Cancelled BUN Cancelled Creatinine Cancelled Est GFR ( Amer) Cancelled Est GFR (Non-Af Amer) Cancelled Glucose Cancelled Calcium Cancelled Magnesium Cancelled Total Bilirubin AST ALT Alkaline Phosphatase Total Protein Albumin 03/01/17 06:03 WBC RBC Hgb Hct MCV MCH MCHC RDW Plt Count Seg Neutrophils % Lymphocytes % Monocytes % Eosinophils % Basophils % Absolute Neutrophils Absolute Lymphocytes Absolute Monocytes Absolute Eosinophils Absolute Basophils Sodium 139.1 Potassium 3.8 Chloride 112 H Carbon Dioxide 18 L Anion Gap 9 BUN 9 Creatinine 0.92 Est GFR ( Amer) > 60 Est GFR (Non-Af Amer) > 60 Glucose 91 Calcium 8.6 Magnesium 1.9 Total Bilirubin 0.6 AST 26 ALT 33 Alkaline Phosphatase 62 Total Protein 7.8 Albumin 2.5 L 02/24/17 05:35 NT-Pro-B Natriuret Pep 4350 H Impressions: Chest/Abdomen CTA 02/19/17 20:41 IMPRESSION: Dense consolidation in the posterior segments of the right lower lobe. Additional patchy areas of consolidation are present in the parahilar regions of both upper lobes and in the left lower lobe. No emboli visualized in the main pulmonary arteries. Breathing motion artifact limits evaluation of the segmental branches. Abdomen/Pelvis CT 02/24/17 17:50 IMPRESSION: No significant interval change. NO SIGNIFICANT OR ACUTE FINDING IN THE ABDOMEN OR PELVIS ON CT SCAN WITH IV CONTRAST. Other findings as noted above Chest X-Ray 02/26/17 00:00 IMPRESSION: Cannot exclude limited infiltrate in the left lower lobe. Head CT 02/26/17 00:00 IMPRESSION: NORMAL BRAIN CT WITHOUT CONTRAST. SINUS DISEASE. EVIDENCE OF ACUTE STROKE: NO. Assessment & Plan - Diagnosis (1) Acute hypoxemic respiratory failure Is this a current diagnosis for this admission?: Yes Plan: Clinically, the patient appears to be improving. We will wean his oxygen as tolerated. (2) Acute renal failure Is this a current diagnosis for this admission?: Yes Plan: Stable to resolved. (3) Anemia Qualifiers: Anemia type: unspecified type Qualified Code(s): D64.9 - Anemia, unspecified Is this a current diagnosis for this admission?: Yes Plan: Stable. (4) Epistaxis Is this a current diagnosis for this admission?: Yes Plan: Status post 2 units packed red blood cells (5) Multiple myeloma Qualifiers: Multiple myeloma remission status: not in remission Qualified Code(s): C90.00 - Multiple myeloma not having achieved remission Is this a current diagnosis for this admission?: Yes Plan: Dr. Shah is following the patient. (6) Pneumonia Qualifiers: Pneumonia type: due to unspecified organism Laterality: bilateral Lung location: upper lobe of lung Qualified Code(s): J18.9 - Pneumonia, unspecified organism Is this a current diagnosis for this admission?: Yes Plan: Cultures are negative. Patient is clinically improving. Today is day 10 of antibiotics. I will discontinue antibiotics after today. (7) Sepsis Qualifiers: Sepsis type: sepsis due to unspecified organism Qualified Code(s): A41.9 - Sepsis, unspecified organism Is this a current diagnosis for this admission?: Yes Plan: Based on leukocytosis and tachycardia in the setting of pneumonia. (8) Severe headache Is this a current diagnosis for this admission?: Yes Plan: Resolved. Etiology unclear. CT was unremarkable. Perhaps, this was related to a metabolic disturbance such as hypoxia or hypercarbia? (9) Thrombocytopenia Is this a current diagnosis for this admission?: Yes Plan: Will monitor, ANDRIY since the patient has had epistaxis and has been placed on Lovenox for DVT prophylaxis. (10) Immunocompromised state Is this a current diagnosis for this admission?: Yes (11) Metabolic acidosis Is this a current diagnosis for this admission?: Yes Plan: Patient has a non-anion gap metabolic acidosis which is likely associated with renal failure and diarrhea. I will continue to trend labs. - Time Time Spent with patient: 25-34 minutes - Inpatient Certification Medical Necessity: Need for IV Antibiotics - Plan Summary Plan Summary: Patient will complete antibiotics today. I will ambulate the patient. I will wean his oxygen to off. If patient remains stable he may be able to be discharged tomorrow with close follow-up.
[2017-03-01] MEDS: ACETAMINOPHEN 325 MG TABLET PO PRN (23:14)
[2017-03-02] MEDS: LEVALBUTEROL HCL NEB 1.25 MG/3 ML AMPUL NEB SCH ×3 (01:47→14:00)
[2017-03-02] MEDS: VANCOMYCIN HCL 750 MG in DEXTROSE 5%-WATER 250 ML IV SCH ×2 (02:43→09:48)
[2017-03-02] MEDS: MEROPENEM 1 GM in NORMAL SALINE 50 ML IV SCH ×2 (02:43→09:48)
[2017-03-02] MEDS: LANSOPRAZOLE 15 MG TAB.RAP.DR PO SCH (05:28)
[2017-03-02 07:06] LABS: HEMATOCRIT 26.4 % (37.9-51.0); HEMOGLOBIN 9.1 g/dL (13.5-17.0); HGB HCT DIFFERENCE 0.9; MEAN CORPUSCULAR HEMOGLOBIN 31.6 pg (27.0-33.4); MEAN CORPUSCULAR HGB CONC 34.6 g/dL (32.0-36.0); MEAN CORPUSCULAR VOLUME 91 fl (80-97); RED BLOOD COUNT 2.89 10^6/uL (4.35-5.55); RED CELL DISTRIBUTION WIDTH 19.4 % (11.5-14.0); WHITE BLOOD COUNT 10.1 10^3/uL (4.0-10.5)
[2017-03-02 07:20] LABS: ANION GAP 9 (5-19); BLOOD UREA NITROGEN 10 mg/dL (7-20); CALCIUM 9.2 mg/dL (8.4-10.2); CARBON DIOXIDE 22 mmol/L (22-30); CHLORIDE 110 mmol/L (98-107); CREATININE RESULT 1.09 mg/dL (0.52-1.25); GLUCOSE 84 mg/dL (75-110); MAGNESIUM 1.6 mg/dL (1.6-2.3); POTASSIUM 3.8 mmol/L (3.6-5.0); SODIUM 140.5 mmol/L (137-145)
[2017-03-02] MEDS: MULTIVITAMINS W-IRON TABLET, CHEWABLE PO SCH (09:46)
[2017-03-02] MEDS: GUAIFENESIN 600 MG TABLET.SA PO SCH (09:46)
[2017-03-02] MEDS: DULOXETINE HCL 30 MG CAPSULE.DR PO SCH (09:47)
[2017-03-02] MEDS: FOLIC ACID 1 MG TABLET PO SCH (09:47)
[2017-03-02] MEDS: MAGNESIUM OXIDE 400 MG TABLET PO SCH (09:47)
[2017-03-02] MEDS: METOPROLOL SUCCINATE 25 MG TAB.SR.24H PO SCH (09:47)
[2017-03-02] MEDS: THIAMINE HCL 100 MG TABLET PO SCH (09:47)
[2017-03-02] MEDS: BACITRACIN ZINC OINTMENT 15 GM TP SCH (09:48)
[2017-03-02] MEDS: ENOXAPARIN SODIUM INJ 40 MG/0.4 ML DISP.SYRIN SUBCUT SCH (09:49)
--- NOTE | 2017-03-02 12:22 | PDOC DISCHARGE SUMMARY ---
General - Admit/Disc Date/PCP Admission Date/Primary Care Provider: 02/19/17 23:10 MERARI PURI MD Discharge Date: 03/02/17 - Discharge Diagnosis (1) Acute hypoxemic respiratory failure Is this a current diagnosis for this admission?: Yes (2) Acute renal failure Is this a current diagnosis for this admission?: Yes (3) Anemia Is this a current diagnosis for this admission?: Yes (4) Epistaxis Is this a current diagnosis for this admission?: Yes (5) Multiple myeloma Is this a current diagnosis for this admission?: Yes (6) Pneumonia Is this a current diagnosis for this admission?: Yes (7) Sepsis Is this a current diagnosis for this admission?: Yes (8) Severe headache Is this a current diagnosis for this admission?: Yes (9) Thrombocytopenia Is this a current diagnosis for this admission?: Yes (10) Immunocompromised state Is this a current diagnosis for this admission?: Yes (11) Metabolic acidosis Is this a current diagnosis for this admission?: Yes - Additional Information Resuscitation Status: Do Not Resuscitate Discharge Diet: Regular Home Medications: Cetirizine HCl [Allergy] 10 mg PO DAILY 02/20/17 Dexamethasone [Decadron 4 mg Tablet] 40 mg PO TU@1000 02/20/17 Duloxetine HCl [Cymbalta] 30 mg PO BID 02/20/17 Magnesium Oxide [Magnesium] 400 mg PO DAILY 02/20/17 Mv-Mn/Folic Acid/Calcium/Vit K [Women's 50 Plus Daily Formula] 1 each PO DAILY 02/20/17 Oxycodone HCl [Oxy-Ir 5 mg Tablet] 5 mg PO Q12 02/20/17 Pantoprazole Sodium [Protonix] 20 mg PO DAILY 02/20/17 Folic Acid [Folvite 1 mg Tablet] 1 mg PO DAILY 30 Days #30 tablet 03/02/17 Metoprolol Succinate [Toprol Xl 25 mg Tab.sr] 25 mg PO DAILY 30 Days #30 tab.sr.24h 03/02/17 Multivitamins W-Iron [Flintstones Chewable Multivit W/Fe Tab] 2 tab PO DAILY tab.chew 03/02/17 Thiamine HCl [Thiamine 100 mg Tablet] 100 mg PO DAILY 30 Days #30 tablet History of Present Illness History of Present Illness: ANGIE LANGFORD is a 61 year old male with past medical history of multiple myeloma, hypertension, DVT, who presents to the emergency department with shortness of breath. Patient apparently came into the emergency department on 01/27/2017 with complaints of shortness of breath and was diagnosed with pneumonia. He was given antibiotics through his IV in the infusion clinic at the cancer center as well as 10 days of amoxicillin. He reported that he was actually better and improved after this. He reports that over the last 48 hours he has gotten sick suddenly starting with the sniffles on Thursday. Last Thursday patient received 2 units packed red blood cells in the infusion clinic. Today patient presents and is quite hypoxic, tachypnea, and obviously in sepsis with multifocal pneumonia. He is referred to the hospitalist service for this. Hospital Course Hospital Course: The patient was admitted to the hospital with acute respiratory failure secondary to pneumonia. Unfortunately, we did not recover an organism for the patient's pneumonia. He received 10 days of therapy with vancomycin and meropenem. At the time of discharge the patient is now comfortable on room air. The patient developed thrombocytopenia during this hospitalization. Prior to this hospitalization he was receiving Xarelto for DVT. This was discontinued and the patient was continued only on subcutaneous prophylactic doses of Lovenox. The patient suffered epistaxis during this hospitalization and required a 2 unit packed red blood cell transfusion. On approximately February 28 the patient developed a severe headache. This was felt to be possibly due to hyperviscosity syndrome. However, at that time the patient's total protein level was normal. There was discussion about whether or not the patient needed to be transferred to a tertiary care hospital but this was ruled out at that time. Patient's hospital course was complicated by the development of acute renal failure with an associated non-anion gap metabolic acidosis. This is now resolving. The patient also had diarrhea during this hospitalization that was likely contributing to the non-anion gap metabolic acidosis. C. difficile toxin testing was negative. Physical Exam Vital Signs: Temp Pulse Resp BP Pulse Ox 97.7 F 83 18 111/65 96 03/02/17 07:14 03/02/17 08:35 03/02/17 08:35 03/02/17 07:14 03/02/17 08:35 Pulse Oximeter Continuous Start: 02/19/17 23: 43 Freq: RTQ4 Status: Complete Document 02/26/17 12:00 LDA (Rec: 02/26/17 12:30 LDA [email or web address]) Pulse Oximetry Assessment Equipment Usage Equipment Standby Continuous SpO2 Machine # 13 Intake & Output 03/01/17 03/02/17 03/03/17 06:59 06:59 06:59 Intake Total 2473 2277 Output Total 200 1630 Balance 2273 647 Weight 81 kg 81.3 kg Additional comments: The patient is not in any distress. His sitting up in bed on room air. He is reading the newspaper. He has been ambulatory as of yesterday without any difficulty. His cognition and mentation are normal. His facial appearance is normal. His lungs do demonstrate a few scattered bibasilar crackles in the posterior lung resendez only. His cardiac exam is regular without murmurs, gallops or rubs. The abdomen is soft and flat. Bowel sounds are present. The lower extremities are warm without any pitting edema. The skin is warm, dry and intact without lesions or rashes. Results Laboratory Results: 03/02/17 06:33 03/02/17 06:33 03/01/17 03/02/17 03/02/17 04:15 06:33 06:33 WBC 10.1 RBC 2.89 L Hgb 9.1 L Hct 26.4 L MCV 91 MCH 31.6 MCHC 34.6 RDW 19.4 H Plt Count 66 L Sodium 140.5 Potassium 3.8 Chloride 110 H Carbon Dioxide 22 Anion Gap 9 BUN 10 Creatinine 1.09 Est GFR ( Amer) > 60 Est GFR (Non-Af Amer) > 60 Glucose 84 Calcium 9.2 Magnesium 1.6 02/24/17 05:35 NT-Pro-B Natriuret Pep 4350 H Impressions: Chest/Abdomen CTA 02/19/17 20:41 IMPRESSION: Dense consolidation in the posterior segments of the right lower lobe. Additional patchy areas of consolidation are present in the parahilar regions of both upper lobes and in the left lower lobe. No emboli visualized in the main pulmonary arteries. Breathing motion artifact limits evaluation of the segmental branches. Abdomen/Pelvis CT 02/24/17 17:50 IMPRESSION: No significant interval change. NO SIGNIFICANT OR ACUTE FINDING IN THE ABDOMEN OR PELVIS ON CT SCAN WITH IV CONTRAST. Other findings as noted above Chest X-Ray 02/26/17 00:00 IMPRESSION: Cannot exclude limited infiltrate in the left lower lobe. Head CT 02/26/17 00:00 IMPRESSION: NORMAL BRAIN CT WITHOUT CONTRAST. SINUS DISEASE. EVIDENCE OF ACUTE STROKE: NO. Plan Discharge Plan: 1. Discharge diet will be regular 2. Activity will be as tolerated 3. Follow-up with Dr. Shah this week 4. Follow with primary care partner in 1-2 weeks Time Spent: Greater than 30 Minutes
[2017-03-02 13:30] VITALS: BP 104/64
== END 2017-03-02 14:15 | disposition home or self-care (01) | DRG 163 ==
LOC: ER 20:34 → EH 23:10 → 3S 02-20 02:24
PROVIDERS: ADMIT Family Medicine; ATTEND Family Medicine
PROC: 30233N1 Transfusion of Nonautologous Red Blood Cells into Peripheral Vein, Percutaneous Approach (ICD-10-PCS; 2017-02-22)
PROC: 0W3Q7ZZ Control Bleeding in Respiratory Tract, Via Natural or Artificial Opening (ICD-10-PCS; principal; 2017-02-23)
PROC: 09JY8ZZ Inspection of Sinus, Via Natural or Artificial Opening Endoscopic (ICD-10-PCS; 2017-02-23)
DX: J96.01 Acute respiratory failure with hypoxia (principal); A41.9 Sepsis, unspecified organism; J18.9 Pneumonia, unspecified organism; N17.9 Acute kidney failure, unspecified; I82.5Z9 Chronic embolism and thrombosis of unspecified deep veins of unspecified distal lower extremity; C90.00 Multiple myeloma not having achieved remission; Z94.81 Bone marrow transplant status; E78.5 Hyperlipidemia, unspecified; E83.42 Hypomagnesemia; E87.6 Hypokalemia; D69.6 Thrombocytopenia, unspecified; R51 Headache; D64.9 Anemia, unspecified; R04.0 Epistaxis; R19.7 Diarrhea, unspecified; I10 Essential (primary) hypertension; Z66 Do not resuscitate; Z79.899 Other long term (current) drug therapy; Z79.01 Long term (current) use of anticoagulants; Z87.891 Personal history of nicotine dependence
CPT/HCPCS: 36415; 36430; 70450; 71010; 71275; 74177; 80048; 80053; 80076; 80202; 82565; 82803; 83605; 83735; 83880; 84100; 84165; 85025; 85027; 85810; 86850; 86900; 86901; 86920; 87015; 87040; 87086; 87116; 87206; 87493; 87804; 93005; 93010; 94762; 94799; 96365; 99291; J0692; J0696; J1956; J2060; J2185; J2930; J3370; J3475; J3490; J7030; J7060; J7620; P9016

== ENCOUNTER 2017-03-10 07:24 | Inpatient (IN) | payer OTHER ==
[2017-03-10] MEDS ORDERED: NORMAL SALINE 1000 ML 1,000 ML IV ONE ×4 (07:31→12:15)
--- NOTE | 2017-03-10 07:31 | ER Document Report ---
ED GI/ - General Stated Complaint: VOMITTING Time Seen by Provider: 03/10/17 07:31 Mode of Arrival: Medic Information source: Patient, Relative - Notes: 61-year-old male with multiple myeloma has been in and out of the hospital since January. He was discharged from [facility] 03-02-17 with respiratory failure, renal failure, anemia, epistaxis, pneumonia, sepsis, thrombocytopenis, metabolic acidosis, immunocompromised state, multiple myeloma (supposed to start chemo today and tomorrow). 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 noticed that he was breathing faster this morning, but he was in bed when she went to work, his daughter found him on the floor with vomit on him. Was normal last night and ate. states that he has been sleeping a lot since january. at the bedside. PCP: Dr Barak Lopez. TRAVEL OUTSIDE OF THE [place] IN LAST 30 DAYS: No - Related Data Allergies/Adverse Reactions: No Known Allergies Allergy (Verified 07/05/14 16:43) Past Medical History - General Information source: Patient - Social History Smoking Status: Unknown if Ever Smoked Frequency of alcohol use: None Drug Abuse: None Occupation: retired Lives with: Family Family History: Malignancy - Past Medical History Cardiac Medical History: Reports: Hx Hypercholesterolemia, Hx Hypertension Pulmonary Medical History: Reports: Hx Bronchitis, Hx Pneumonia, Hx Respiratory Failure Renal/ Medical History: Denies: Hx Peritoneal Dialysis Malignancy Medical History: Reports Other - multiple myeloma Past Surgical History: Reports: Hx Bowel Surgery, Hx Orthopedic Surgery - L3-L5 surgery, Hx Vascular Surgery - Port placement, Other - Ex lap for SBO - Immunizations Hx Diphtheria, Pertussis, Tetanus Vaccination: No Hx Pneumococcal Vaccination: 03/23/12 Review of Systems - Review of Systems Constitutional: See HPI EENT: No symptoms reported Cardiovascular: No symptoms reported Respiratory: No symptoms reported Gastrointestinal: See HPI Genitourinary: No symptoms reported Male Genitourinary: No symptoms reported Musculoskeletal: No symptoms reported Skin: No symptoms reported Hematologic/Lymphatic: No symptoms reported Neurological/Psychological: No symptoms reported Physical Exam - Vital signs Vitals: Pulse 110 H 03/10/17 07:30 Interpretation: Tachycardic - 103, Hypoxic - pulse ox to 85% without oxygen - General General appearance: Lethargic Notes: tachypneic - HEENT Head: Normocephalic, Atraumatic Eyes: Normal Conjunctiva: Normal Pupils: PERRL Mucous membranes: Dry Pharynx: Erythema - with clear mucous posterior pharynx Neck: Supple. No: Lymphadenopathy - Respiratory Respiratory status: Respiratory distress, Tachypnea Chest status: Nontender Breath sounds: Normal Chest palpation: Normal - Cardiovascular Rhythm: Tachycardia Heart sounds: Normal auscultation Murmur: No - Abdominal Inspection: Normal Distension: No distension Bowel sounds: Hypoactive Tenderness: Nontender Organomegaly: No organomegaly - Back Back: Normal, Nontender - Extremities General upper extremity: Normal inspection, Nontender, Normal color, Normal ROM , Normal temperature General lower extremity: Normal inspection, Nontender, Normal color, Normal ROM , Normal temperature, Normal weight bearing. No: Pao's sign Notes: 2 + dp bilateral but feet cool to touch - Neurological Neuro grossly intact: Yes Cognition: Normal Orientation: AAOx4 [place] Coma Scale Eye Opening: Spontaneous Adriana Coma Scale Verbal: Oriented Adriana Coma Scale Motor: Obeys Commands Adriana Coma Scale Total: 15 Speech: Normal Motor strength normal: LUE, RUE, LLE, RLE Sensory: Normal - Psychological Associated symptoms: Normal affect, Normal mood - Skin Skin Temperature: Warm Skin Moisture: Dry Skin Color: Normal Skin irregularity: negative: Rash Course - Re-evaluation Re-evalutation: 03/10/17 08:25 vomited up the spinach he ate for dinner last night. 03/10/17 09:25 Acute abdomen shows left upper lobe pneumonia, his pulse ox is 97% with 2 L nasal cannula. 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 Tripp. - Vital Signs Vital signs: Temp Pulse Resp BP Pulse Ox 110 H 31 H 111/58 L 98 03/10/17 07:30 03/10/17 08:01 03/10/17 08:01 03/10/17 08:01 - Laboratory Result Diagrams: 03/10/17 07:49 03/10/17 07:49 Laboratory results interpreted by me: 03/10/17 03/10/17 03/10/17 07:49 07:49 07:49 WBC 2.3 L RBC 2.66 L Hgb 8.3 L Hct 23.9 L RDW 18.2 H Plt Count 54 L Seg Neuts % (Manual) 21 L Band Neutrophils % 12 H Metamyelocytes % 2 H Abs Neuts (Manual) 0.8 L PT VBG pCO2 27.5 L VBG HCO3 15.4 L Lactic Acid 3.1 H Urine Protein Urine Blood 03/10/17 03/10/17 07:49 07:49 WBC RBC Hgb Hct RDW Plt Count Seg Neuts % (Manual) Band Neutrophils % Metamyelocytes % Abs Neuts (Manual) PT 17.1 H VBG pCO2 VBG HCO3 Lactic Acid Urine Protein 100 H Urine Blood SMALL H Discharge - Discharge Clinical Impression: Thrombocytopenia Anemia Qualifiers: Anemia type: unspecified type Qualified Code(s): D64.9 - Anemia, unspecified Sepsis Qualifiers: Sepsis type: sepsis due to unspecified organism Qualified Code(s): A41.9 - Sepsis, unspecified organism Pneumonia Qualifiers: Pneumonia type: due to unspecified organism Laterality: left Lung location: upper lobe of lung Qualified Code(s): J18.1 - Lobar pneumonia, unspecified organism Multiple myeloma Qualifiers: Multiple myeloma remission status: not in remission Qualified Code(s): C90.00 - Multiple myeloma not having achieved remission Condition: Good Disposition: ADMITTED INPATIENT Admitting Provider: Hospitalist Unit Admitted: IMCU Referrals: LAURITA REESE PA-C [Primary Care Provider] - Follow up as needed
[2017-03-10 08:05] LABS: VENOUS BLOOD BASE EXCESS -8.6 mmol/L; VENOUS BLOOD HCO3 15.4 mmol/L (20-32); VENOUS BLOOD PCO2 27.5 mmHg (35-63); VENOUS BLOOD PH 7.37 (7.30-7.42)
[2017-03-10] MEDS ORDERED: METOCLOPRAMIDE HCL INJ/PF 10 MG/2 ML SDV IV ONE (08:05)
[2017-03-10 08:09] LABS: HEMATOCRIT 23.9 % (37.9-51.0); HEMOGLOBIN 8.3 g/dL (13.5-17.0); MEAN CORPUSCULAR HEMOGLOBIN 31.3 pg (27.0-33.4); MEAN CORPUSCULAR HGB CONC 34.8 g/dL (32.0-36.0); MEAN CORPUSCULAR VOLUME 90 fl (80-97); RED BLOOD COUNT 2.66 10^6/uL (4.35-5.55); RED CELL DISTRIBUTION WIDTH 18.2 % (11.5-14.0); WHITE BLOOD COUNT 2.3 10^3/uL (4.0-10.5)
[2017-03-10 08:15] LABS: PROTHROMBIN TIME 17.1 SEC (11.4-15.4)
[2017-03-10 08:16] LABS: PARTIAL THROMBOPLASTIN TIME 29.1 SEC (23.5-35.8)
[2017-03-10 08:23] LABS: APPEARANCE,URINE CLOUDY; BILIRUBIN,URINE NEGATIVE (NEGATIVE); GLUCOSE, URINE NEGATIVE (NEGATIVE); KETONES,URINE NEGATIVE (NEGATIVE); LEUKOCYTE ESTERASE,URINE NEGATIVE (NEGATIVE); NITRITE,URINE NEGATIVE (NEGATIVE); PROTEIN,URINE 100 mg/dL (NEGATIVE); URINE SPECIFIC GRAVITY 1.016; UROBILINOGEN,URINE NEGATIVE mg/dL (<2.0)
[2017-03-10] MEDS ORDERED: ACETAMINOPHEN 650 MG SUPP.RECT PR ONE (08:27)
[2017-03-10 08:32] LABS: WBC,URINE RARE /HPF
[2017-03-10 08:39] LABS: ABSOLUTE EOSINOPHILS# (MANUAL) 0.1 10^3/uL (0.0-0.6); BAND NEUTROPHILS % (MANUAL) 12 % (3-5); BASOPHILS % (MANUAL) 0 % (0-2); EOSINOPHILS % (MANUAL) 3 % (0-6); LYMPHOCYTES % (MANUAL) 44 % (13-45); NUCLEATED RED BLOOD CELLS 8 /100 WBC (0); TOTAL CELLS COUNTED 100
[2017-03-10 08:52] LABS: ANISOCYTOSIS 1+; POIKILOCYTOSIS 1+; ROULEAUX 1+; TEAR DROP CELLS 1+
[2017-03-10] MEDS ORDERED: CEFTRIAXONE 1 GM/D5W RTU 1 GM/50 ML RTUPB IV ONE (09:00)
--- NOTE | 2017-03-10 09:10 | RADIOLOGY REPORT (SQ) ---
EXAM DESCRIPTION: ACUTE ABDOMEN SERIES COMPLETED DATE/TIME: 03/10/2017 8:50 am REASON FOR STUDY: fever COMPARISON: Three-way abdomen series [id number] AP chest film 02/26/2017 CT abdomen pelvis 02/24/2017, 01/27/2017 NUMBER OF VIEWS: Three views. TECHNIQUE: Frontal chest, supine abdomen and upright abdomen radiographic images acquired. LIMITATIONS: None. FINDINGS: CHEST: Patchy airspace disease left upper lobe, worrisome for pneumonia. Right lung clear. No pleural effusion or pneumothorax. Stable mild cardiomegaly. Unchanged permane nt right jugular central line with the tip in the superior vena cava. FREE AIR: None. No abnormal gas collections. BOWEL GAS PATTERN: Nonobstructive pattern. No dilated loops or air fluid levels. CALCIFICATIONS: No suspicious calcifications. HARDWARE: There are bowel anastomotic mike in the right lower quadrant. Lower lumbar fusion hardw are SOFT TISSUES: No gross mass or suggestion of organomegaly. BONES: No acute fracture. No worrisome bone lesions. OTHER: No other significant finding. IMPRESSION: Left upper lobe consolidation worrisome for pneumonia Nonobstructive bowel gas pattern TECHNICAL DOCUMENTATION: JOB ID: [id number]- All Rights Reserved
[2017-03-10] MEDS ORDERED: LEVOFLOXACIN 750 MG/D5W RTU 750 MG/150 ML RTUPB IV ONE (09:18)
[2017-03-10] MEDS ORDERED: ACETAMINOPHEN 325 MG TABLET PO PRN (09:56)
[2017-03-10] MEDS ORDERED: SUCCINYLCHOLINE CHLORIDE INJ 200 MG/10 ML VIAL ONE (09:59)
[2017-03-10] MEDS ORDERED: ROCURONIUM BROMIDE INJ 50 MG/5 ML VIAL IV ONE (09:59)
[2017-03-10] MEDS ORDERED: ENOXAPARIN SODIUM INJ 40 MG/0.4 ML DISP.SYRIN SUBCUT SCH (10:00)
[2017-03-10] MEDS ORDERED: ALBUTEROL SULFATE 0.083% NEB 2.5 MG/3 ML AMPUL NEB PRN (10:14)
[2017-03-10] MEDS ORDERED: VANCOMYCIN HCL 0 MG in DEXTROSE 5%-WATER 250 ML IV NR (10:15)
[2017-03-10] MEDS ORDERED: ONDANSETRON HCL INJ/PF 4 MG/2 ML SDV IV PRN (10:15)
[2017-03-10 10:32] LABS: ALANINE AMINOTRANSFERASE 26 U/L (21-72); ALKALINE PHOSPHATASE 107 U/L (38-126); ANION GAP 15 (5-19); ASPARTATE AMINO TRANSFERASE 37 U/L (17-59); BILIRUBIN,DIRECT 0.5 mg/dL (0.0-0.4); BILIRUBIN,TOTAL 0.8 mg/dL (0.2-1.3); BLOOD UREA NITROGEN 34 mg/dL (7-20); CALCIUM 10.3 mg/dL (8.4-10.2); CARBON DIOXIDE 14 mmol/L (22-30); CHLORIDE 115 mmol/L (98-107); CREATININE RESULT 7.04 mg/dL (0.52-1.25); GLUCOSE 80 mg/dL (75-110); LIPASE 83.2 U/L (23-300); POTASSIUM 4.3 mmol/L (3.6-5.0); SODIUM 143.5 mmol/L (137-145); TOTAL PROTEIN 9.3 g/dL (6.3-8.2)
[2017-03-10 10:41] LABS: ARTERIAL BLOOD BASE EXCESS -8.9 mmol/L; ARTERIAL BLOOD O2 SATURATION 97.7 % (94-98)
--- NOTE | 2017-03-10 11:34 | PDOC H&P ---
History of Present Illness Admission Date/PCP: 03/10/17 09:47 LAURITA REESE PA-C Patient complains of: Fever, nausea vomiting, shortness of breath History of Present Illness: ANGIE LANGFORD is a 61 year old male with a past medical history of multiple myeloma, hypertension, DVT, recent partial colectomy, and multiple recent admissions for pneumonia who presented to the emergency department today via EMS with a complaint of lethargy, fever, nausea and vomiting, and shortness of breath. The HPI is obtained from the patient's secondary to somnolence. She reports that he was discharged from [facility] a week ago and that he had been well until late last night when he developed fatigue, fever, chills, with nausea , vomiting and shortness of breath noted this morning. She states that his oncologist, Dr. Shah, had been planning his first chemotherapy treatment for today. Evaluation in the emergency department reveals a left upper lobe pneumonia, neutropenia with an absolute neutrophil count of 0.8, lactic acid 3.1, tachypnea , and hypoxia on room air. At the time of dictation his Chem-12 is still pending. He is referred to the hospitalist service for admission. Past Medical History Cardiac Medical History: Reports: DVT, Hyperlipidema, Hypertension Pulmonary Medical History: Reports: Bronchitis, Pneumonia, Respiratory Failure Denies: Asthma, Chronic Obstructive Pulmonary Disease (COPD) EENT Medical History: Reports: None Neurological Medical History: Reports: None Endocrine Medical History: Reports: None Renal/ Medical History: Reports: None Malignancy Medical History: Reports: Lymphoma, Other - multiple myeloma GI Medical History: Reports: None Musculoskeltal Medical History: Reports: None Skin Medical History: Reports: None Psychiatric Medical History: Reports: None Traumatic Medical History: Reports: None Hematology: Reports: Anemia, Neutropenia Infectious Medical History: Reports: None Past Surgical History Past Surgical History: Reports: Orthopedic Surgery - L3-L5 surgery, Vascular Surgery - Port placement, Other - Ex lap for SBO, partial colectomy Social History Information Source: Patient, Relative Lives with: Family Smoking Status: Unknown if Ever Smoked Frequency of Alcohol Use: Occasional Hx Recreational Drug Use: No Drugs: None Hx Prescription Drug Abuse: No Family History Family History: Reviewed & Not Pertinent, Hypertension, Malignancy Parental Family History Reviewed: Yes Children Family History Reviewed: Yes Sibling(s) Family History Reviewed.: Yes Medication/Allergy Allergies/Adverse Reactions: No Known Allergies Allergy (Verified 07/05/14 16:43) Review of Systems Constitutional: PRESENT: as per HPI, fatigue, fever(s), headache(s), weakness Eyes: ABSENT: visual disturbances Ears: ABSENT: hearing changes Nose, Mouth, and Throat: PRESENT: headache(s). ABSENT: mouth pain, sore throat Cardiovascular: ABSENT: chest pain, dyspnea on exertion, edema, orthropnea, palpitations Respiratory: PRESENT: dyspnea Gastrointestinal: PRESENT: bloating, nausea, vomiting. ABSENT: abdominal pain, coffee ground emesis, constipation, diarrhea, dysphagia, heartburn, hematemesis , hematochezia, melena Genitourinary: ABSENT: dysuria, hematuria Musculoskeletal: ABSENT: joint swelling Integumentary: ABSENT: rash, wounds Neurological: ABSENT: abnormal gait, abnormal speech, confusion, dizziness, focal weakness, syncope Psychiatric: ABSENT: anxiety, depression, homidical ideation, suicidal ideation Endocrine: ABSENT: cold intolerance, heat intolerance, polydipsia, polyuria Hematologic/Lymphatic: ABSENT: easy bleeding, easy bruising Physical Exam Vital Signs: Temp Pulse Resp BP Pulse Ox 102.2 F H 110 H 31 H 111/58 L 98 03/10/17 07:52 03/10/17 07:30 03/10/17 08:01 03/10/17 08:01 03/10/17 08:01 General appearance: PRESENT: mild distress, well-developed, well-nourished Head exam: PRESENT: atraumatic, normocephalic Eye exam: PRESENT: conjunctiva pink, EOMI, PERRLA. ABSENT: scleral icterus Ear exam: PRESENT: normal external ear exam Mouth exam: PRESENT: moist, tongue midline Neck exam: ABSENT: carotid bruit, JVD, lymphadenopathy, thyromegaly Respiratory exam: PRESENT: accessory muscle use, rhonchi, tachypnea. ABSENT: rales, wheezes Cardiovascular exam: PRESENT: RRR, tachycardia. ABSENT: diastolic murmur, rubs , systolic murmur Pulses: PRESENT: normal dorsalis pedis pul Vascular exam: PRESENT: normal capillary refill GI/Abdominal exam: PRESENT: distended, hypoactive bowel sounds, soft. ABSENT: guarding, mass, organolmegaly, rebound, tenderness Rectal exam: PRESENT: deferred Extremities exam: PRESENT: full ROM. ABSENT: calf tenderness, clubbing, pedal edema Neurological exam: PRESENT: oriented to person, oriented to place, oriented to time, oriented to situation, CN II-XII grossly intact, other - Somnolent. ABSENT: motor sensory deficit Psychiatric exam: PRESENT: appropriate affect, normal mood. ABSENT: homicidal ideation, suicidal ideation Skin exam: PRESENT: dry, intact. ABSENT: cyanosis, rash, warm - Cool Results Impressions: Acute Abdomen Series 03/10/17 08:01 IMPRESSION: Left upper lobe consolidation worrisome for pneumonia Nonobstructive bowel gas pattern Assessment & Plan - Diagnosis (1) Sepsis Qualifiers: Sepsis type: sepsis due to unspecified organism Qualified Code(s): A41.9 - Sepsis, unspecified organism Is this a current diagnosis for this admission?: Yes Plan: Pt with sepsis as evidenced by fever (102.2), tachycardia, tachypnea, PaCO2 22.6 , neutropenia (2.3), lactic acidosis (3.1) and pneumonia by chest x-ray. He will be admitted to [facility] on continuous cardiac telemetry. Will provide IV fluid resuscitation. Blood and urine cultures have been obtained. Patient to be surgically started on vancomycin and Zosyn. Will narrow antibiotics as cultures result. (2) Acute hypoxemic respiratory failure Is this a current diagnosis for this admission?: Yes Plan: Secondary to pneumonia and evidenced by hypoxia on room air. The patient will be placed on continuous pulse oximetry. Will provide supplemental oxygen as needed to keep O2 sats greater than 92%. BiPAP nightly and as needed. (3) Acute renal failure Is this a current diagnosis for this admission?: Yes Plan: Likely prerenal in nature and secondary to severe sepsis. Will provide IV fluid resuscitation. No indication for emergent dialysis at this time; will trend BMP and monitor closely. (4) Neutropenia Is this a current diagnosis for this admission?: Yes Plan: Absolute neutrophil count 0.8 in setting of patient with multiple myeloma, not yet on chemotherapy, and severe sepsis. Will place patient on neutropenic precautions. (6) Anemia Qualifiers: Anemia type: unspecified type Qualified Code(s): D64.9 - Anemia, unspecified Is this a current diagnosis for this admission?: Yes Plan: Anemia of chronic disease; appears to be near baseline. Anticipate that hemoglobin/hematocrit will drop secondary to hemodilution after IV fluid resuscitation per sepsis protocols. Will monitor and transfuse for hemoglobin less than 8. (7) Multiple myeloma Qualifiers: Multiple myeloma remission status: not in remission Qualified Code(s): C90.00 - Multiple myeloma not having achieved remission Plan: The patient's primary oncologist, Dr. Sorenson, is consulted. (8) Pneumonia Qualifiers: Pneumonia type: due to unspecified organism Laterality: left Lung location: upper lobe of lung Qualified Code(s): J18.1 - Lobar pneumonia, unspecified organism Plan: Patient with dyspnea, cough, fever and left upper lobe consolidation worrisome for pneumonia by chest x-ray. He is placed on empiric vancomycin and Zosyn for hospital-acquired pneumonia coverage. He remains on continuous cardiac telemetry and pulse oximetry, supplemental oxygen as needed to keep saturations greater than 92%, BiPAP nightly and as needed, and will be provided duo nebs every 6 hours scheduled with albuterol nebs as needed, and Mucinex twice daily. Incentive spirometry hourly while awake. (9) Thrombocytopenia Is this a current diagnosis for this admission?: Yes Plan: Presumably secondary to sepsis; platelet count 54. He will have TEDs/SCDs placed for DVT prophylaxis. (10) Metabolic acidosis Is this a current diagnosis for this admission?: Yes Plan: Secondary to severe sepsis. Plan as above. - Time Time Spent: 50 to 70 Minutes Medications reviewed and adjusted accordingly: Yes - Inpatient Certification Based on my medical assessment, after consideration of the patient's comorbidities, presenting symptoms, or acuity I expect that the services needed warrant INPATIENT care.: Yes I certify that my determination is in accordance with my understanding of Medicare's requirements for reasonable and necessary INPATIENT services [42 CFR 412.3e].: Yes Medical Necessity: Need Close Monitoring Due to Risk of Patient Decompensation, Need For IV Fluids, Need For Continuous Telemetry Monitoring, Need for Nebulizer Therapy and Monitoring of Response, Need for IV Antibiotics
[2017-03-10 12:00] LABS: ANION GAP 15 (5-19); BLOOD UREA NITROGEN 34 mg/dL (7-20); CALCIUM 9.6 mg/dL (8.4-10.2); CARBON DIOXIDE 12 mmol/L (22-30); CHLORIDE 116 mmol/L (98-107); CREATININE RESULT 6.94 mg/dL (0.52-1.25); GLUCOSE 81 mg/dL (75-110); POTASSIUM 4.1 mmol/L (3.6-5.0); SODIUM 142.6 mmol/L (137-145)
[2017-03-10] MEDS ORDERED: PIPERACILLIN SODIUM/TAZOBACTAM 3.375 GM in NORMAL SALINE 100 ML IV SCH (12:00)
[2017-03-10] MEDS ORDERED: PROPOFOL 100 ML IV ONE (13:53)
[2017-03-10] MEDS ORDERED: IPRATROPIUM/ALBUTEROL 0.5-2.5 MG/3 ML AMPUL NEB SCH (14:00)
[2017-03-10] MEDS ORDERED: NOREPINEPHRINE BITARTRATE INJ/PF 4 MG/4 ML SDV IV ONE (14:02)
[2017-03-10 14:15] LABS: ARTERIAL BLOOD BASE EXCESS -12.9 mmol/L; ARTERIAL BLOOD O2 SATURATION 92.9 % (94-98)
[2017-03-10] MEDS ORDERED: VANCOMYCIN HCL 1,000 MG in DEXTROSE 5%-WATER 250 ML IV SCH (15:00)
--- NOTE | 2017-03-10 15:09 | RADIOLOGY REPORT (SQ) ---
EXAM DESCRIPTION: CHEST SINGLE VIEW COMPLETED DATE/TIME: 03/10/2017 2:50 pm REASON FOR STUDY: ET Tube Placement COMPARISON: 02/26/2017 EXAM PARAMETERS: NUMBER OF VIEWS: One view. TECHNIQUE: Single frontal radiographic view of the chest acquired. RADIATION DOSE: NA LIMITATIONS: None. FINDINGS: LUNGS AND PLEURA: Dense opacification is seen in the left lung laterally. MEDIASTINUM AND HILAR STRUCTURES: No masses. Contour normal. HEART AND VASCULAR STRUCTURES: Heart normal in size. Normal vasculature. BONES: No acute findings. HARDWARE: An endotracheal tube has its tip 5 cm above the anita. An injection port is present on th e right. An NG tube extends below the diaphragm. OTHER: No other significant finding. IMPRESSION: Pneumonia. Tube placement as described. TECHNICAL DOCUMENTATION: JOB ID: [id number] [employer]- All Rights Reserved
[2017-03-10 15:20] LABS: ARTERIAL BLOOD BASE EXCESS -13.6 mmol/L; ARTERIAL BLOOD O2 SATURATION 94.4 % (94-98)
--- NOTE | 2017-03-10 15:31 | PDOC TRANSFER SUMMARY ---
General Admission Date/PCP: 03/10/17 09:47 LAURITA REESE PA-C Admission Date: 03/10/17 Transfer Date: 03/10/17 Accepting Facility: [facility] Accepting Physician: Dr. Brown Resuscitation Status: Full Code - Transfer Diagnosis (1) Sepsis Is this a current diagnosis for this admission?: Yes (2) Acute hypoxemic respiratory failure Is this a current diagnosis for this admission?: Yes (3) Acute renal failure Is this a current diagnosis for this admission?: Yes (4) Neutropenia Is this a current diagnosis for this admission?: Yes (6) Anemia Is this a current diagnosis for this admission?: Yes (9) Thrombocytopenia Is this a current diagnosis for this admission?: Yes (10) Metabolic acidosis Is this a current diagnosis for this admission?: Yes - Transfer Medications Home Medications: Acyclovir [Zovirax] 400 mg PO Q12 03/10/17 Albuterol Sulfate [Proair HFA] 2 puff IH Q4HP PRN 03/10/17 Amlodipine Besylate [Norvasc 10 mg Tablet] 10 mg PO DAILY 03/10/17 Celecoxib [Celebrex 200 mg Capsule] 200 mg PO Q12HP PRN 03/10/17 Cetirizine HCl [Zyrtec 10 mg Tablet] 1 tab PO DAILY 03/10/17 Dexamethasone [Decadron 4 Mg Tablet] 40 mg PO TU@1000 03/10/17 Duloxetine HCl [Cymbalta] 30 mg PO BID 03/10/17 Folic Acid [Folvite 1 mg Tablet] 1 mg PO DAILY 03/10/17 Lisinopril [Prinivil 10 mg Tablet] 10 mg PO DAILY 03/10/17 Magnesium Oxide [Mag-Ox 400 mg Tablet] 400 mg PO DAILY 03/10/17 Megestrol Acetate [Megace Es] 625 mg PO DAILY 03/10/17 Metoprolol Succinate [Toprol Xl 25 mg Tab.sr] 25 mg PO DAILY 03/10/17 Pantoprazole Sodium [Protonix] 20 mg PO QAM 03/10/17 Pedi Mv No.79/Ferrous Fumarate [Flintstones with Iron Tab Chew] 2 tab PO DAILY 03/10/17 Pomalidomide [Pomalyst] 2 mg PO ASDIR 03/10/17 Rivaroxaban [Xarelto 10 mg Tablet] 10 mg PO QPM 03/10/17 Sulfamethoxazole/Trimethoprim [Septra-Ds 800-160 mg Tablet] 1 tab PO Q12 Thiamine HCl [Thiamine 100 mg Tablet] 100 mg PO DAILY 03/10/17 Tiotropium [place] [Spiriva Handihaler 18 mcg/dose (30 Dose)] 1 cap IH DAILY Tramadol HCl/Acetaminophen [Ultracet 37.5 mg/325 mg Tablet] 1 each PO Q8HP PRN 03/10/17 Transfer Medications: Current Medications Acetaminophen (Tylenol 325 Mg Tablet) 650 mg PO Q4HP PRN PRN Reason: pain or temp greater than 101F Stop: 04/09/17 09:55 Albuterol (Ventolin 0.083% Neb 2.5 Mg/3 Ml Ampul) 2.5 mg NEB RTQ2HP PRN PRN Reason: SHORTNESS OF BREATH Stop: 04/09/17 10:13 Albuterol/Ipratropium (Duoneb 3 Ml Ampul) 3 ml NEB RTQ6 ANDREEA Stop: 04/09/17 13:59 Amlodipine Besylate (Norvasc 10 Mg Tablet) 10 mg PO DAILY ANDREEA Stop: 04/10/17 09:59 Ferrous Sulfate (Feosol 325 Mg Tablet) 325 mg PO DAILY ANDREEA Stop: 04/10/17 09:59 Folic Acid (Folvite 1 Mg Tablet) 1 mg PO DAILY ANDREEA Stop: 04/10/17 09:59 Guaifenesin (Mucinex Sr 600 Mg Tablet.Sa) 600 mg PO Q12 ANDREEA Stop: 04/09/17 21:59 Piperacillin Sod/Tazobactam (Sod 3.375 gm/ Sodium Chloride) 100 mls @ 200 mls/ hr IV Q6 ANDREEA Stop: 03/17/17 11:59 Vancomycin HCl / Dextrose 250 mls @ 0 mls/hr IV .PHARMACY TO DOSE NR PRN Reason: As Directed Stop: 03/17/17 10:14 Sodium Chloride (Nacl 0.9% 1000 Ml Iv Soln) 1,000 mls @ 0 mls/hr IV BOLUS ONE PRN Reason: Wide Open Stop: 03/10/17 12:16 Metoprolol Succinate (Toprol Xl 25 Mg Tab.Sr) 25 mg PO DAILY ANDREEA Stop: 04/10/17 09:59 Ondansetron HCl (Zofran Inj/Pf 4 Mg/2 Ml Sdv) 4 mg IV Q6HP PRN PRN Reason: FOR NAUSEA/VOMITING Stop: 04/09/17 10:14 Pantoprazole Sodium (Protonix Iv Inj 40 Mg Vial) 40 mg IV DAILY [facility] Stop: 03/14/17 09:59 Sodium Chloride (Saline Flush 2.5 Ml Monoject Prefil Syrin) 2.5 ml IV Q8 ANDREEA Stop: 04/09/17 13:59 Thiamine HCl (Thiamine 100 Mg Tablet) 100 mg PO DAILY [facility] Stop: 04/10/17 09:59 - Allergies Allergies/Adverse Reactions: No Known Allergies Allergy (Verified 07/05/14 16:43) - Diet/Activity Discharge Diet: Clear Liquids Discharge Activity: Bedrest, Weigh Daily Hospital Course Hospital Course: The patient was admitted early this morning from the emergency department with severe sepsis, care associated pneumonia, and acute kidney failure in the setting of multiple myeloma with neutropenia. He was admitted to our IMCU on BiPAP, IV fluid resuscitation, and empiric vancomycin and Zosyn. Prior to admission the patient did receive 1 dose of Rocephin and levofloxacin in the emergency department. The patient's outpatient oncologist, Dr. Shah, was contacted who had concerns that the patient was displaying hyperviscosity syndrome secondary to outpatient laboratory evaluation done this week but is currently unavailable. 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 [facility] was contacted, Dr. Brown has graciously agreed to accept this patient. While awaiting transport, the patient had a decline in his respiratory status and experienced an episode of vomiting while wearing BiPAP. He was emergently intubated and is currently maintaining oxygen saturations of 95% on SIMV with pressure support at FiO2 100%, 18, 500, 8/10. Follow-up chest x-ray demonstrates a worsening left lobe pneumonia. At time of dictation, the patient has received 4 L of normal saline and remains mildly hypotensive and tachycardic, therefore Levophed has been initiated. The surgeon was able to access the patient's Port-A-Cath and he continues to have adequate peripheral IV to the left A Joel catheter has been inserted with placement confirmed via ultrasound. The patient is not noted to have urinary output at this time despite IV fluid resuscitation. I did meet with the patient's and daughter, who confirmed that the patient does wish to remain a full code, however, has expressed to them that he does not wish to remain on a ventilator for a prolonged period of time. Physical Exam Vital Signs: Temp Pulse Resp BP Pulse Ox 101.0 F H 110 H 36 H 111/58 L 100 03/10/17 11:16 03/10/17 07:30 03/10/17 12:26 03/10/17 08:01 03/10/17 12:26 Pulse Oximeter Continuous Start: 03/10/17 10: 02 Freq: RTQ4 Status: Active Document 03/10/17 12:26 LDA (Rec: 03/10/17 12:29 LDA [email or web address]) Pulse Oximetry Assessment Oxygen Saturation (92-100) 100 Oxygen Delivery Method Bi-pap Fraction of Inspired Oxygen (FIO2) 40 Equipment Usage Initial Set Up Continuous Pulse Oximeter 24 Hour Charge Charge Now Continuous SpO2 Machine # [id number] General appearance: PRESENT: obese, well-developed, well-nourished, other - Acutely ill Head exam: PRESENT: atraumatic, normocephalic Eye exam: PRESENT: conjunctiva pink, EOMI, PERRLA. ABSENT: scleral icterus Ear exam: PRESENT: normal external ear exam Mouth exam: PRESENT: moist, tongue midline Neck exam: ABSENT: carotid bruit, JVD, lymphadenopathy, thyromegaly Respiratory exam: PRESENT: crackles - Bibasilar, decreased breath sounds, other - Intubated and mechanically ventilated. ABSENT: rales, rhonchi, wheezes Cardiovascular exam: PRESENT: RRR, systolic murmur, tachycardia. ABSENT: diastolic murmur, rubs Pulses: PRESENT: normal dorsalis pedis pul Vascular exam: PRESENT: normal capillary refill GI/Abdominal exam: PRESENT: hypoactive bowel sounds, normal bowel sounds, soft. ABSENT: distended, guarding, mass, organolmegaly, rebound, tenderness Rectal exam: PRESENT: deferred Extremities exam: PRESENT: full ROM. ABSENT: calf tenderness, clubbing, pedal edema Neurological exam: PRESENT: other - Sedated Psychiatric exam: ABSENT: homicidal ideation, suicidal ideation Skin exam: PRESENT: intact. ABSENT: cyanosis, dry - Diaphoretic, rash, warm - cool Results Laboratory Results: 03/10/17 11:30 03/10/17 03/10/17 10:00 11:30 Sodium 143.5 142.6 Potassium 4.3 4.1 Chloride 115 H 116 H Carbon Dioxide 14 L 12 L Anion Gap 15 15 BUN 34 H 34 H Creatinine 7.04 H 6.94 H Est GFR ( Amer) 10 L 10 L Est GFR (Non-Af Amer) 8 L 8 L Glucose 80 81 Calcium 10.3 H 9.6 Total Bilirubin 0.8 AST 37 ALT 26 Alkaline Phosphatase 107 Total Protein 9.3 H Albumin 3.0 L Lipase 83.2 Impressions: Acute Abdomen Series 03/10/17 08:01 IMPRESSION: Left upper lobe consolidation worrisome for pneumonia Nonobstructive bowel gas pattern Plan Time Spent: Greater than 30 Minutes - Transfer to [facility]
[2017-03-10] MEDS: PROPOFOL 100 ML IV PRN ×2 (16:42→18:30)
[2017-03-10 17:21] LABS: ARTERIAL BLOOD BASE EXCESS -14.8 mmol/L; ARTERIAL BLOOD O2 SATURATION 91.2 % (94-98)
[2017-03-10] MEDS ORDERED: PHENYLEPHRINE HCL INJ/PF 10 MG/1 ML SDV ONE (17:22)
[2017-03-10] MEDS ORDERED: PIPERACILLIN SODIUM/TAZOBACTAM 2.25 GM in NORMAL SALINE 50 ML IV SCH (18:00)
[2017-03-10 18:07] VITALS: BP 94/57
--- NOTE | 2017-03-10 20:33 | OPERATIVE REPORT E ---
Operative Report NAME: ANGIE LANGFORD : 1955 AGE: 61Y DATE OF SURGERY: 03/10/2017 ROOM: 609 PREOPERATIVE DIAGNOSIS: OCCLUDED MEDICAL PORT. POSTOPERATIVE DIAGNOSIS: OCCLUDED MEDICAL PORT. OPERATION: Declotting of medical port. SURGEON: JEAN PORTER M.D. ANESTHESIA: TISSUE REMOVED OR ALTERED: PROCEDURE: A Melendez needle was then placed through the port. Apparently, the nurses claimed that it has been clogged and the patient claims he *------* about a week ago. With the use of heparinized saline solution, the port was unclogged with solution, after injecting with about 3 mL of 100 units of heparin per mL. However, I was not able to aspirate any blood, but saline could easily be infused. I told the nurses that they can use the port also for medications or fluids. I was initially consulted to put a possible central line in, but since the port was opened, patient does not need it at this time. Patient also is awaiting transport to a tertiary hospital. DICTATING PHYSICIAN: JEAN PORTER M.D. [id number] PHY#: [id number] ID: [id number] JOB#: [id number] ACCT: [id number] cc:JEAN PORTER M.D. >
[2017-03-10] MEDS ORDERED: GUAIFENESIN 600 MG TABLET.SA PO SCH (22:00)
--- NOTE | 2017-03-11 09:37 | PDOC CONSULTATION ---
Consultation Consult Date: 03/10/17 Attending physician:: VALARIE GARCIATECOLE Consult reason:: resp failure History of Present Illness Admission Date/PCP: 03/10/17 09:47 LAURITA REESE PA-C History of Present Illness: ANGIE LANGFORD is a 61 year old male with a past medical history of multiple myeloma, hypertension, DVT, recent partial colectomy, and multiple recent admissions for pneumonia who presented to the emergency department today via EMS with a complaint of lethargy, fever, nausea and vomiting, and shortness of breath. The HPI is obtained from the patient's secondary to somnolence. She reports that he was discharged from [facility] a week ago and that he had been well until late last night when he developed fatigue, fever, chills, with nausea , vomiting and shortness of breath noted this morning. She states that his oncologist, Dr. Shah, had been planning his first chemotherapy treatment for today. Evaluation in the emergency department reveals a left upper lobe pneumonia, neutropenia with an absolute neutrophil count of 0.8, lactic acid 3.1, tachypnea , and hypoxia on room air. At the time of dictation his Chem-12 is still pending. He is referred to the hospitalist service for admission. Past Medical History Cardiac Medical History: Reports: DVT, Hyperlipidema, Hypertension Pulmonary Medical History: Reports: Bronchitis, Pneumonia, Respiratory Failure Denies: Asthma, Chronic Obstructive Pulmonary Disease (COPD) EENT Medical History: Reports: None Neurological Medical History: Reports: None Endocrine Medical History: Reports: None Renal/ Medical History: Reports: None Malignancy Medical History: Reports: Lymphoma, Other - multiple myeloma GI Medical History: Reports: None Musculoskeltal Medical History: Reports: None Skin Medical History: Reports: None Psychiatric Medical History: Reports: None Traumatic Medical History: Reports: None Hematology: Reports: Anemia, Neutropenia Infectious Medical History: Reports: None Past Surgical History Past Surgical History: Reports: Orthopedic Surgery - L3-L5 surgery, Vascular Surgery - Port placement, Other - Ex lap for SBO, partial colectomy Social History Information Source: [facility] Records Lives with: Family Smoking Status: Unknown if Ever Smoked Frequency of Alcohol Use: Occasional Hx Recreational Drug Use: No Drugs: None Hx Prescription Drug Abuse: No - Advance Directive Resuscitation Status: Full Code Family History Family History: Hypertension, Malignancy Parental Family History Reviewed: No Children Family History Reviewed: No Sibling(s) Family History Reviewed.: No Medication/Allergy Home Medications: Acyclovir [Zovirax] 400 mg PO Q12 03/10/17 Albuterol Sulfate [Proair HFA] 2 puff IH Q4HP PRN 03/10/17 Amlodipine Besylate [Norvasc 10 mg Tablet] 10 mg PO DAILY 03/10/17 Celecoxib [Celebrex 200 mg Capsule] 200 mg PO Q12HP PRN 03/10/17 Cetirizine HCl [Zyrtec 10 mg Tablet] 1 tab PO DAILY 03/10/17 Dexamethasone [Decadron 4 Mg Tablet] 40 mg PO TU@1000 03/10/17 Duloxetine HCl [Cymbalta] 30 mg PO BID 03/10/17 Folic Acid [Folvite 1 mg Tablet] 1 mg PO DAILY 03/10/17 Lisinopril [Prinivil 10 mg Tablet] 10 mg PO DAILY 03/10/17 Magnesium Oxide [Mag-Ox 400 mg Tablet] 400 mg PO DAILY 03/10/17 Megestrol Acetate [Megace Es] 625 mg PO DAILY 03/10/17 Metoprolol Succinate [Toprol Xl 25 mg Tab.sr] 25 mg PO DAILY 03/10/17 Pantoprazole Sodium [Protonix] 20 mg PO QAM 03/10/17 Pedi Mv No.79/Ferrous Fumarate [Flintstones with Iron Tab Chew] 2 tab PO DAILY 03/10/17 Pomalidomide [Pomalyst] 2 mg PO ASDIR 03/10/17 Rivaroxaban [Xarelto 10 mg Tablet] 10 mg PO QPM 03/10/17 Sulfamethoxazole/Trimethoprim [Septra-Ds 800-160 mg Tablet] 1 tab PO Q12 Thiamine HCl [Thiamine 100 mg Tablet] 100 mg PO DAILY 03/10/17 Tiotropium San[place] [Spiriva Handihaler 18 mcg/dose (30 Dose)] 1 cap IH DAILY Tramadol HCl/Acetaminophen [Ultracet 37.5 mg/325 mg Tablet] 1 each PO Q8HP PRN 03/10/17 Allergies/Adverse Reactions: No Known Allergies Allergy (Verified 07/05/14 16:43) Review of Systems ROS unobtainable: Due to endotracheal tube Physical Exam Vital Signs: Temp Pulse Resp BP Pulse Ox 100.7 F H 143 H 12 91/46 L 100 03/10/17 14:00 03/10/17 14:00 03/10/17 14:00 03/10/17 14:00 03/10/17 14:00 Pulse Oximeter Continuous Start: 03/10/17 10: 02 Freq: RTQ4 Status: Active Document 03/10/17 12:26 LDA (Rec: 03/10/17 12:29 LDA [email or web address]) Pulse Oximetry Assessment Oxygen Saturation (92-100) 100 Oxygen Delivery Method Bi-pap Fraction of Inspired Oxygen (FIO2) 40 Equipment Usage Initial Set Up Continuous Pulse Oximeter 24 Hour Charge Charge Now Continuous SpO2 Machine # [id number] Intake & Output 03/09/17 03/10/17 03/11/17 06:59 06:59 06:59 Output Total 0 Balance 0 Weight 83.4 kg General appearance: PRESENT: no acute distress, disheveled, well-developed, well -nourished. ABSENT: cooperative, mild distress, morbidly obese, obese, severe distress, thin Head exam: PRESENT: atraumatic, normocephalic Eye exam: PRESENT: conjunctiva pale. ABSENT: conjunctival injection, conjunctiva pink, nystagmus, periorbital swelling Mouth exam: PRESENT: dry mucosa, neck supple, tongue midline, other - ET tube. ABSENT: laceration, moist Neck exam: ABSENT: carotid bruit, JVD, lymphadenopathy, thyromegaly, tracheal deviation, tracheostomy Respiratory exam: PRESENT: crackles, decreased breath sounds, prolonged expiratory phas, rhonchi, symmetrical, unlabored. ABSENT: accessory muscle use , chest wall tenderness, clear to auscultation leni, retraction, stridor, tachypnea Cardiovascular exam: PRESENT: RRR, +S1, +S2. ABSENT: irregular rhythm, rubs Pulses: PRESENT: normal radial pulses Extremities exam: ABSENT: clubbing, joint swelling Musculoskeletal exam: ABSENT: deformity, dislocation Neurological exam: ABSENT: alert, awake Skin exam: PRESENT: dry, warm Results Laboratory Results: 03/10/17 11:30 03/10/17 03/10/17 03/10/17 10:00 11:30 12:31 Carbonic Acid HCO3/H2CO3 Ratio ABG pH ABG pCO2 ABG pO2 ABG HCO3 ABG O2 Saturation ABG Base Excess FiO2 Sodium 143.5 142.6 Potassium 4.3 4.1 Chloride 115 H 116 H Carbon Dioxide 14 L 12 L Anion Gap 15 15 BUN 34 H 34 H Creatinine 7.04 H 6.94 H Est GFR ( Amer) 10 L 10 L Est GFR (Non-Af Amer) 8 L 8 L Glucose 80 81 Lactic Acid 5.2 H Calcium 10.3 H 9.6 Total Bilirubin 0.8 AST 37 ALT 26 Alkaline Phosphatase 107 Total Protein 9.3 H Albumin 3.0 L Lipase 83.2 Blood Type Antibody Screen 03/10/17 03/10/17 03/10/17 12:31 13:30 13:50 Carbonic Acid Cancelled 0.60 L HCO3/H2CO3 Ratio Cancelled 18:1 ABG pH Cancelled 7.37 ABG pCO2 Cancelled 20.0 L* ABG pO2 Cancelled 65.1 L ABG HCO3 Cancelled 11.2 L ABG O2 Saturation Cancelled 92.9 L ABG Base Excess Cancelled -12.9 FiO2 Cancelled ROOM AIR Sodium Potassium Chloride Carbon Dioxide Anion Gap BUN Creatinine Est GFR ( Amer) Est GFR (Non-Af Amer) Glucose Lactic Acid Calcium Total Bilirubin AST ALT Alkaline Phosphatase Total Protein Albumin Lipase Blood Type A POSITIVE Antibody Screen NEGATIVE 03/10/17 15:00 Carbonic Acid 1.72 H HCO3/H2CO3 Ratio 9:1 ABG pH 7.05 L* ABG pCO2 57.2 H ABG pO2 100.4 H ABG HCO3 15.5 L ABG O2 Saturation 94.4 ABG Base Excess -13.6 FiO2 60% Sodium Potassium Chloride Carbon Dioxide Anion Gap BUN Creatinine Est GFR ( Amer) Est GFR (Non-Af Amer) Glucose Lactic Acid Calcium Total Bilirubin AST ALT Alkaline Phosphatase Total Protein Albumin Lipase Blood Type Antibody Screen Impressions: Chest X-Ray 03/10/17 00:00 IMPRESSION: Pneumonia. Tube placement as described. Acute Abdomen Series 03/10/17 08:01 IMPRESSION: Left upper lobe consolidation worrisome for pneumonia Nonobstructive bowel gas pattern Assessment & Plan - Diagnosis (1) Acute hypoxemic respiratory failure Is this a current diagnosis for this admission?: Yes Plan: support as needed (2) Acute renal failure Qualifiers: Acute renal failure type: unspecified Qualified Code(s): N17.9 - Acute kidney failure, unspecified Is this a current diagnosis for this admission?: Yes Plan: needs hemo dialysis (3) Sepsis Qualifiers: Sepsis type: sepsis due to unspecified organism Qualified Code(s): A41.9 - Sepsis, unspecified organism Is this a current diagnosis for this admission?: Yes Plan: continue current abx cultures pending - Time Total Critical Time (Minutes): 50
[2017-03-11] MEDS ORDERED: FOLIC ACID 1 MG TABLET PO SCH (10:00)
[2017-03-11] MEDS ORDERED: FERROUS SULFATE 325 MG TABLET PO SCH (10:00)
[2017-03-11] MEDS ORDERED: PANTOPRAZOLE SODIUM 40 MG VIAL IV SCH (10:00)
[2017-03-11] MEDS ORDERED: METOPROLOL SUCCINATE 25 MG TAB.SR.24H PO SCH (10:00)
[2017-03-11] MEDS ORDERED: AMLODIPINE BESYLATE 10 MG TABLET PO SCH (10:00)
[2017-03-11] MEDS ORDERED: THIAMINE HCL 100 MG TABLET PO SCH (10:00)
== END 2017-03-10 18:50 | disposition short-term general hospital (02) | DRG 871 ==
LOC: ER 07:24 → EH 09:47 → 3W 11:52 → ICU 13:10
PROVIDERS: ADMIT Internal Medicine; ATTEND Internal Medicine
PROC: 3C1ZX8Z Irrigation of Indwelling Device using Irrigating Substance, External Approach (ICD-10-PCS; principal; 2017-03-10)
PROC: 0BH17EZ Insertion of Endotracheal Airway into Trachea, Via Natural or Artificial Opening (ICD-10-PCS; 2017-03-10)
PROC: 5A1935Z Respiratory Ventilation, Less than 24 Consecutive Hours (ICD-10-PCS; 2017-03-10)
DX: A41.9 Sepsis, unspecified organism (principal); J96.01 Acute respiratory failure with hypoxia; J18.1 Lobar pneumonia, unspecified organism; T82.898A Other specified complication of vascular prosthetic devices, implants and grafts, initial encounter; C90.00 Multiple myeloma not having achieved remission; N17.9 Acute kidney failure, unspecified; E87.2 Acidosis; E78.00 Pure hypercholesterolemia, unspecified; I10 Essential (primary) hypertension; D64.9 Anemia, unspecified; D69.6 Thrombocytopenia, unspecified; D70.9 Neutropenia, unspecified; Z79.51 Long term (current) use of inhaled steroids; Z79.899 Other long term (current) drug therapy; Z79.01 Long term (current) use of anticoagulants
CPT/HCPCS: 31500; 36415; 71010; 74022; 80048; 80053; 81001; 82803; 83605; 83690; 85025; 85610; 85730; 85810; 86850; 86900; 86901; 87040; 87070; 87077; 87086; 87186; 87205; 94002; 94660; 94762; 96361; 96365; 96375; 99285; J0330; J0696; J1956; J2370; J2704; J2765; J3370; J3490; J7030; J7060